=== PATIENT | male | born 1955 | race Hispanic/Latino ===

== ENCOUNTER 2017-10-26 07:32 | Day surgery (SDC) | payer BC ==
[2017-10-24 15:03] VITALS: BMI 33.7
[2017-10-26] MEDS ORDERED: Midazolam 2 MG/2 ML VIAL ONE (08:14)
[2017-10-26] MEDS ORDERED: Lidocaine 1% 5ml Abboject IV ONE (08:14)
[2017-10-26] MEDS ORDERED: Propofol 10 mg/ml Inj (20 ML) ONE (08:14)
[2017-10-26] MEDS ORDERED: MethylPREDNISolone Depo 40 mg/ml Inj ONE (08:17)
[2017-10-26] MEDS ORDERED: methylPREDNISolone Depo 80 mg/ml Inj ONE (08:17)
[2017-10-26] MEDS ORDERED: Bupivacaine 0.5% Inj(30mL) ONE (08:18)
[2017-10-26] MEDS ORDERED: Absorbable Gelatin Sponge Size 100 ONE (08:18)
[2017-10-26] MEDS ORDERED: Thrombin Topical 5,000 Int Units Spray Kit ONE (08:18)
[2017-10-26] MEDS ORDERED: Lidocaine 1% Inj (20ml) ONE (08:18)
[2017-10-26] MEDS ORDERED: Bacitracin Ointment 30 GM TUBE ONE (08:18)
[2017-10-26] MEDS ORDERED: Iohexol 300 100 ML IJ ONE (10:18)
[2017-10-26] MEDS ORDERED: Lactated Ringer's 1,000 ML IV ONE (11:20)
--- NOTE | 2017-10-26 11:24 | CP.SDSHP ---
Same Day Surgery H & P - History Proposed Procedure: Left knee aspiration/arthrogram s/p TKR Pre-Op Diagnosis: Left knee pain s/p TKR - Previous Medical/Surgical History Previous Surgical History: L TKR 2013 - Allergies Allergies: Allergies aspirin Allergy (Verified 10/24/17 15:03) RASH - Physical Exam Vital Signs: Vital Signs 10/26/17 10/26/17 10/26/17 08:11 08:15 08:17 Temperature 97.7 F Pulse Rate 81 81 Respiratory 18 Rate Blood Pressure 141/95 H 147/91 H O2 Sat by Pulse 95 Oximetry 10/26/17 08:30 Temperature Pulse Rate 76 Respiratory 18 Rate Blood Pressure 143/86 O2 Sat by Pulse Oximetry Mental Status: Alert & Oriented x3 Heart: WNL Lungs: WNL GI: WNL - {Optional Preform as Required} Ortho: Other (+DP/PT pulses calves soft NT neg homans +ROM ankle/toes/knee, skin intact, incision well healed) - Impression Impression: 62M s/p TKR 2013, had fall approx 1 year ago complaining of continued left knee pain especially with stairs for aspiration/arthrogram Pt. Evaluated Today:Candidate for Anesthesia & Procedure: Yes - Date & Time Date: 10/26/17 Time: 09:00 Short Stay Discharge - Short Stay Discharge Admitting Diagnosis/Reason for Visit: M25.562 Disposition: HOME/ ROUTINE Referrals: Tyree Hunter III, MD [Primary Care Provider] - Past Patient History - Past Medical History & Family History Past Medical History?: Yes - Past Social History Smoking Status: Former Smoker - CARDIAC Hx Cardiac Disorders: No - PULMONARY Hx Respiratory Disorders: No - NEUROLOGICAL Hx Neurological Disorder: No - HEENT Hx HEENT Problems: No - RENAL Hx Chronic Kidney Disease: No - ENDOCRINE/METABOLIC Hx Endocrine Disorders: Yes Hx Diabetes Mellitus Type 2: Yes - HEMATOLOGICAL/ONCOLOGICAL Hx Blood Disorders: No Hx Blood Transfusions: Yes Hx Blood Transfusion Reaction: No - INTEGUMENTARY Hx Dermatological Problems: No - MUSCULOSKELETAL/RHEUMATOLOGICAL Hx Musculoskeletal Disorders: Yes Hx Arthritis: Yes - GASTROINTESTINAL Hx Gastrointestinal Disorders: No - GENITOURINARY/GYNECOLOGICAL Hx Genitourinary Disorders: No - PSYCHIATRIC Hx Emotional Abuse: No Hx Physical Abuse: No - SURGICAL HISTORY Hx Surgeries: Yes Hx Herniorrhaphy: Yes (x3) Hx Orthopedic Surgery: Yes (total left knee-2013) Other/Comment: skin graft r forearm/r index finger - ANESTHESIA Hx Anesthesia: Yes Hx Anesthesia Reactions: No Hx Malignant Hyperthermia: No Has any member of the family had a problem w/ anesthesia?: No
[2017-10-26] MEDS ORDERED: Oxycodone/Acetaminophen 5/325 mg Tab PO PRN (11:26)
[2017-10-26] MEDS ORDERED: Lactated Ringer's 1,000 ML IV SCH (11:30)
[2017-10-26] MEDS ORDERED: HYDROmorphone 0.5 mg/0.5 ml ISec IVP PRN (11:30)
--- NOTE | 2017-10-26 11:33 | PCM.SURG1 ---
Surgeon's Initial Post Op Note - Surgeon's Notes Surgeon: Dale Clinical Systems Educator: ELDON Colon Type of Anesthesia: General LMA Anesthesia Administered By: DR Tinajero Pre-Operative Diagnosis: Painful L TKR- s/p Fall Operative Findings: lossened patella compoinent. ? anterior instability Post-Operative Diagnosis: as above. traumatic loosening patella component. =/ - anterior instability Operation Performed: aspiration arthrogram L knee. manipulation/evaluation L knee under anaesthesia. posiitoining of fluoro/interpretation of video images Specimen/Specimens Removed: synovial fluid/radiopaque dye aspirate Estimated Blood Loss: EBL {In ML}: 5 Blood Products Given: N/A Drains Used: No Drains Post-Op Condition: Good Date of Surgery/Procedure: 10/26/17 Time of Surgery/Procedure: 11:10 (time in room/anestheisa indcution time10:30)
[2017-10-26 11:35] LABS: FLUID TYPE SYNOVIAL FLUID
[2017-10-26 13:06] LABS: SF GROSS APPEARANCE BLOODY (CLEAR); SYNOVIAL FLUID COMMENT RED
[2017-10-26 13:11] VITALS: RESP 18
[2017-10-26 13:41] LABS: SYNOVIAL FLUID MONO/MACROPHAGE 15 % (0-0)
[2017-10-26 13:56] VITALS: BP 157/77; PULSE 91; TEMP 97.3; O2SAT 95
--- NOTE | 2017-10-26 14:19 | RAD ---
PROCEDURE: Left Knee Radiographs. HISTORY: Pain. COMPARISON: None. FINDINGS: BONES: No fracture. Status post total knee arthroplasty. Tibial stem cemented no prosthesis -cement interface lucency noted JOINTS: Prostatic alignment normal appearing JOINT EFFUSION: The hyperdensity in the suprapatellar joint space is compatible with a prior aspiration/arthrogram procedure as stated. Some hyperdensity in the infrapatellar fat pad also noted There is coalescent linear low-densities along the lateral opacified joint space- synovial hyperplastic folds can simulate this. Can be seen with synovitis. OTHER FINDINGS: None. IMPRESSION: Status post aspiration arthrogram procedure as so stated Findings as above.
--- NOTE | 2017-10-27 15:25 | RAD ---
PROCEDURE: Intraoperative Fluoroscopy. HISTORY: LEFT KNEE FINDINGS: Fluoroscopic assistance was provided Total fluoroscopic time (continuous mode) utilized during the procedure: 10.0 seconds. Please DLP: (mGy): 0.72. Five images obtained.
--- NOTE | 2017-10-28 18:48 | OP ---
PROCEDURE DATE: 10/26/2017 PREOPERATIVE DIAGNOSIS: Painful left total knee replacement. POSTOPERATIVE DIAGNOSES: 1. Rule out septic total knee replacement. 2. Probable loosened patellar component. 3. Questionable anterior instability. OPERATIVE FINDINGS: 1. Possible loosened patellar component. 2. Questionable anterior instability. 3. Rule out deep sepsis. SURGEON: Tyree Hunter MD RESISTOR INSPECTOR: Beatrice Newman, certified registered nursing lead assistant manager. TYPE OF ANESTHESIA: General laryngeal mask anesthesia. ANESTHESIA ADMINISTERED BY: Leon Tinajero MD COMPLICATIONS: None. DRAINS: None. OPERATION PERFORMED: 1. Aspiration arthrogram left knee. 2. Manipulation evaluation left knee under anesthesia. 3. Positioning of fluoroscope interpretation of video images. SPECIMENS REMOVED: Synovial fluid, radiopaque dye aspirate. ESTIMATED BLOOD LOSS: 5 mL. No blood products given. POSTOPERATIVE CONDITION: Stable TIME OF SURGERY: 11:10 a.m. ANESTHESIA INDUCTION TIME: 10:30. OPERATIVE INDICATIONS: German Hagen is a 62-year-old gentleman well known to my practice who presents now approximately 5 years after successful left total knee replacement arthroplasty. The patient noted increasing pain over the last several months after he had sustained a fall. The patient is admitted at this point for aspiration arthrogram and evaluation of the knee under anesthesia. Pros, cons, risks, and benefits of this particular procedure were discussed. The concept and possibility of secondary or later tertiary surgery was discussed. The patient can no longer withstand the discomfort and wished the procedure to be accomplished. Again, fully cognizant of the fact and possibly a secondary or tertiary surgery may be indicated. OPERATIVE PROCEDURE: After having obtained informed consent in the above fashion; after having identified side, site, and procedure, and critical pause/time-out; after the satisfactory induction of the anesthetic, the patient identified as German Hagen in the supine position with all bony prominences well padded. The left lower extremity was prepped and draped in usual fashion for lower extremity surgery. Under the surgeon's direction, the fluoroscope was positioned, video images were generated, and therapeutic decisions were made therefrom. AP and lateral image intensification views were accomplished. Manipulation of the knee under anesthesia was accomplished. There was found to be an anterior drawer, which was positive. This having been accomplished, approximately 30 mL of radiopaque contrast was introduced into the knee from a lateral suprapatellar portal and also from a lateral infrapatellar portal. The dye having been insufflated under the surgeon's direction, the fluoroscope was positioned, video images were generated, therapeutic decisions were made therefrom. This having been accomplished, the knee was again manipulated. There was found to be question of a lucency in the area of the patellar component and again the questionable anterior instability. Aliquots of fluid were sent for stat Gram stain, number of white cells per high-power field. The result came back as 0 to 2 white cells per high-power field. There was no evidence of jarred purulence. The aspirate again was sent for aerobic, anaerobic, AFB, and fungal cultures. There was no evidence of minimal amount of white cells per high-power field on the stat Gram stain. The fluid was aspirated, sent to the lab for the above studies including cell count. Compression dressing was applied. Verification of position was again offered on AP and lateral image intensification views. Tyree Hunter MD
== END 2017-10-26 13:45 | disposition home or self-care (01) ==
LOC: H.OPSURG 07:32
PROVIDERS: ATTEND Orthopaedic Surgery
DX: T84.033A Mechanical loosening of internal left knee prosthetic joint, initial encounter (principal); M19.90 Unspecified osteoarthritis, unspecified site; E11.9 Type 2 diabetes mellitus without complications; T84.84XA Pain due to internal orthopedic prosthetic devices, implants and grafts, initial encounter
CPT/HCPCS: 20610; 27570; 73560; 82948; 87015; 87070; 87075; 87101; 87116; 87181; 87206; 89051; 97116; 97161; G8978; G8979; G8980; J0690; J2250; J2704; J2765; J3010; J7030; J7120; Q9967

== ENCOUNTER 2017-11-21 05:52 | Inpatient (IN) | payer BC ==
[2017-10-24 15:03] VITALS: BMI 33.7
[2017-11-21] MEDS ORDERED: Absorbable Gelatin Sponge Size 100 ONE (07:21)
--- NOTE | 2017-11-21 07:56 | CP.PCM.HP ---
History of Present Illness - History of Present Illness History of Present Illness: Hospitalist Note- Dr. Arreola 62 y.o male with PMHx of DM, arthritis, and left TKR seen and evaluated at bedside for perioperative evaluation for left knee revision arthroplasty surgery. Patient reports he had a left knee TKR three years ago. In 2016, patient reports he started having pain to the left knee. Pain has gotten progressive worse. Denies trauma or falls. Went to Dr. Hunter's office to be seen and was scheduled for an aspiration of left knee in October 2017. Patient reports the aspiration of the L knee did not help much with the pain. Patient has exhausted all conservative treatment and now opts for surgical intervention. He reports nothing to eat or drink since 8:30 PM last night. Denies reaction to anesthesia. Patient denies nausea, vomiting, fever, shortness of breath, chills, diarrhea, or chest pains. Patient denies urinary problems. Denies problems with bowel movements. Last BM was this morning. PMHx: DM, arthritis PSH: left TKR, left knee aspiration, hernia repairs x 3 (2 inguinal hernias), varcoise veins keli, skin graft R index finger MEDS: Metformin, Januvia ALL: Aspirin- rash, swells FH: denies SH: former smoker (quit 5 years ago), denies drinking or illicit drug use, lives at home with stairs. Present on Admission - Present on Admission Any Indicators Present on Admission: No Past Patient History - Past Medical History & Family History Past Medical History?: Yes - Past Social History Smoking Status: Former Smoker - CARDIAC Hx Cardiac Disorders: No - PULMONARY Hx Respiratory Disorders: No - NEUROLOGICAL Hx Neurological Disorder: No - HEENT Hx HEENT Problems: No - RENAL Hx Chronic Kidney Disease: No - ENDOCRINE/METABOLIC Hx Endocrine Disorders: Yes Hx Diabetes Mellitus Type 2: Yes - HEMATOLOGICAL/ONCOLOGICAL Hx Blood Disorders: No Hx Blood Transfusions: Yes Hx Blood Transfusion Reaction: No - INTEGUMENTARY Hx Dermatological Problems: No - MUSCULOSKELETAL/RHEUMATOLOGICAL Hx Musculoskeletal Disorders: No Hx Arthritis: Yes - GASTROINTESTINAL Hx Gastrointestinal Disorders: No - GENITOURINARY/GYNECOLOGICAL Hx Genitourinary Disorders: No - PSYCHIATRIC Hx Emotional Abuse: No Hx Physical Abuse: No - SURGICAL HISTORY Hx Surgeries: Yes Hx Herniorrhaphy: Yes (inguinal hernia keli,x2 on right) Hx Joint Replacement: Yes (left knee) Hx Orthopedic Surgery: Yes (left knee replaced) Other/Comment: keli varicose veins,skin graft on right index finger - ANESTHESIA Hx Anesthesia: Yes Hx Anesthesia Reactions: No Hx Malignant Hyperthermia: No Has any member of the family had a problem w/ anesthesia?: No Meds Allergies/Adverse Reactions: Allergies Allergy/AdvReac Type Severity Reaction Status Date / Time aspirin Allergy RASH Verified 11/21/17 07:24 Physical Exam - Constitutional Appears: Well, Non-toxic, No Acute Distress - Head Exam Head Exam: ATRAUMATIC, NORMOCEPHALIC - Eye Exam Eye Exam: EOMI, Normal appearance, PERRL Pupil Exam: NORMAL ACCOMODATION - ENT Exam ENT Exam: Mucous Membranes Moist, Normal Exam - Neck Exam Neck exam: Positive for: Normal Inspection - Respiratory Exam Respiratory Exam: Clear to Auscultation Bilateral, NORMAL BREATHING PATTERN. absent: Rales, Rhonchi, Wheezes, Respiratory Distress, Stridor - Cardiovascular Exam Cardiovascular Exam: REGULAR RHYTHM, +S1, +S2 - GI/Abdominal Exam GI & Abdominal Exam: Normal Bowel Sounds, Soft - Extremities Exam Extremities exam: Negative for: calf tenderness Additional comments: Vasc: DP and PT 2/4 bilaterally, CFT < 3 seconds x10, Skin temperature WNL. No pitting edema noted to the LE Ortho: Decrease left knee ROM , pain with left knee ROM and palpation Neuro: protective and gross sensation intact Derm: Completely healed surgical incision to the left knee. Venous stasis changes to the LE b/l, most prominent to the anterior LE No open lesions, no clinical signs of infection noted - Back Exam Back exam: NORMAL INSPECTION. absent: CVA tenderness (L), CVA tenderness (R) - Neurological Exam Neurological exam: Alert, Oriented x3 - Psychiatric Exam Psychiatric exam: Normal Affect, Normal Mood - Skin Skin Exam: Dry, Intact, Normal Color, Warm Results - Vital Signs Recent Vital Signs: Last Vital Signs Temp 97.5 F L 11/21/17 07:07 Pulse 74 11/21/17 07:14 Resp 18 11/21/17 07:07 BP 123/87 11/21/17 07:07 Pulse Ox 96 11/21/17 07:07 - Labs Labs: Laboratory Results - last 24 hr 11/21/17 11/21/17 06:45 06:55 POC Glucose (mg/dL) 146 H BBK History Checked No verified bt Assessment & Plan - Assessment and Plan (Free Text) Assessment: 62 y.o male with PMHx of DM, arthritis, and left TKR seen and evaluated at bedside for left knee revision arthroplasty. Plan: Pt was seen and examined in SDS Pt NPO status was confirmed All Pre-op testing and EKG in the chart Pt has exhausted all conservative treatment at this time and is opting for surgical intervention Pt was explained procedure and post-operative course All pt's questions were answered to satisfaction No guarantees were made Pt understands all risks, benefits and complications of procedure Pt will follow-up with Dr. Hunter
[2017-11-21] MEDS ORDERED: Sodium Chloride 0.9% 1,000 ML IV SCH (08:15)
[2017-11-21 09:05] LABS: URINE BILIRUBIN NEGATIVE (NEGATIVE); URINE BLOOD NEGATIVE (NEGATIVE); URINE CLARITY CLEAR (Clear); URINE COLOR YELLOW (YELLOW); URINE GLUCOSE (UA) NEG (Normal); URINE LEUKOCYTE ESTERASE NEG Leu/uL (Negative); URINE NITRATE NEGATIVE (NEGATIVE); URINE PROTEIN NEGATIVE (NEGATIVE); URINE UROBILINOGEN 0.2-1.0 mg/dL (0.2-1.0)
[2017-11-21] MEDS ORDERED: Phenylephrine 10 mg/ml Inj ONE (12:07)
[2017-11-21] MEDS ORDERED: Bupivacaine 0.5% Inj(30mL) ONE (12:07)
[2017-11-21] MEDS ORDERED: Etomidate 20 mg/10ml Inj IV ONE (12:23)
[2017-11-21] MEDS ORDERED: Succinylcholine 200 mg/10 ml Inj IV ONE (12:23)
[2017-11-21] MEDS ORDERED: Rocuronium 10 mg/ml (5 ml) ONE ×3 (12:23→15:42)
[2017-11-21] MEDS ORDERED: Lactated Ringer's 1,000 ML IV ONE ×3 (12:50→16:32)
[2017-11-21] MEDS ORDERED: Gentamicin 80 mg/2mL Inj. ONE (13:00)
[2017-11-21] MEDS ORDERED: Propofol 10 mg/ml Inj (20 ML) ONE ×2 (13:07→14:16)
[2017-11-21] MEDS ORDERED: Dexamethasone 4 mg/1 ml ONE ×2 (13:36)
[2017-11-21 15:05] LABS: FLUID TYPE SYNOVIAL FLUID
[2017-11-21 15:17] LABS: SF GROSS APPEARANCE CLOUDY (CLEAR); SYNOVIAL FLUID COMMENT SL BLOODY; SYNOVIAL FLUID MONO/MACROPHAGE 12 % (0-0)
[2017-11-21 15:18] LABS: SF GROSS APPEARANCE CLOUDY (CLEAR); SYNOVIAL FLUID COMMENT SL BLOODY; SYNOVIAL FLUID MONO/MACROPHAGE 9 % (0-0)
[2017-11-21] MEDS ORDERED: Sevoflurane - Inhalation Anesthetic Liq (250 ml) ONE (15:25)
[2017-11-21] MEDS ORDERED: Bacitracin Ointment 30 GM TUBE ONE (16:16)
[2017-11-21] MEDS ORDERED: Bacitracin OINT 15GM TOP ONE (16:20)
--- NOTE | 2017-11-21 16:40 | PCM.SURG1 ---
Surgeon's Initial Post Op Note - Surgeon's Notes Surgeon: Dale Jute Bag Cutting Machine Operator: ELDON Gonzáles Type of Anesthesia: General Endo, Spinal Anesthesia Administered By: DR Farhan Singh Pre-Operative Diagnosis: Painful L TKR. \R/O sepsis Operative Findings: Poly wear (Tibia)/ Poly wear patella. flexion/extension laxity. no evidence for deep sepsis. sever synovitis anterior and posterior compartments Post-Operative Diagnosis: as above Operation Performed: Revision L TKR- tibiala nd patella component. anterior and posterior synovectomy. posterior capsule release. lateral patella release. excision skin/subcutaneous tissue and muscle Specimen/Specimens Removed: poly and patella components(tibial poly). synvoium. skin,subcutaneous tissue and muscle Estimated Blood Loss: EBL {In ML}: 50 Blood Products Given: N/A Drains Used: No Drains, Hemovac Post-Op Condition: Good Date of Surgery/Procedure: 11/21/17 Time of Surgery/Procedure: 13:50 (time in room/anaesthesia indcution time 1250)
[2017-11-21] MEDS ORDERED: Lactated Ringer's 1,000 ML IV SCH (16:45)
--- NOTE | 2017-11-21 16:50 | PCM.ANESB3 ---
Femoral Nerve Block - Femoral Nerve Block Date of Procedure: 11/21/17 Anesthesiologist: Nedra Pre-Procedure Diagnosis: Painful Left TKA Post-Procedure Diagnosis: Same Procedure Performed: Femoral Nerve Block Left - Procedure Femoral Nerve Block: The procedure was explained to the patient that it is for the post-operative pain management. Consent was obtained after a thorough discussion with the patient regarding the benefits and possible complications of local anesthetic block of the femoral nerve at the inguinal crease area. The patient was brought to the operating room and standard monitors were applied. Time-out was held with the circulating nurse to confirm the correct surgery and the appropriate block. UNder general anesthesia, patient was placed in supine position with fully extended lower extremities and the ___left groin exposed. The femoral artery was then carefully palpated. The ultrasound transducer was then applied to this area in the transverse plane and the femoral nerve was visualized lateral to the femoral artery and underneath the fascia iliaca. After thorough identification, the inguinal crease area was prepped with Chloraprep. At this point, a #22 gauge Stimuplex 4-inch needle was inserted immediately lateral to the femoral artery pulse at the inguinal crease and advanced perpendicularly. The needle was inserted to the ultrasound transducer in-plane towards the femoral nerve in a [id number] direction. Needle advancement was performed carefully under direct ultrasound visualization. Nerve stimulator was used and twitch of the quadriceps muscle was obtained at current of __0.4___ MA. After negative aspiration, __2___cc of __0.5___% ___bupivicaine with 1:200, 000 epinephrine was injected and this was followed with ___18__ _ cc of __0.5 % ___bupivicaine with 1:200,000 epinephrine . Under ultrasound guidance the local anesthetics were observed spreading below fascia iliaca and around the femoral nerve. The needle was removed intact. The patient had stable vital signs. The patient tolerated the femoral nerve block well with stable vital signs and was prepared for subsequent surgery.
--- NOTE | 2017-11-21 16:51 | PCM.ANESB2 ---
Popliteal Nerve Block - Popliteal Nerve Block Date of Procedure: 11/21/17 Anesthesiologist: Nedra Pre-Procedure Diagnosis: Pinful Left TKA Post-Procedure Diagnosis: Same Procedure Performed: Popliteal Nerve Block Left - Procedure Popliteal Nerve Block: This procedure was explained to the patient that it is for post-operative pain management. Consent was obtained after a thorough discussion with the patient regarding the benefits and possible complications of local anesthetic block of the sciatic nerve at the popliteal level. The patient was brought to the operating room and standard monitors are applied. Time-out was held with the circulating nurse to confirm the correct surgery and the appropriate block. Under general anesthesia, patient's operative leg was gently raised and supported and the groove in between the biceps femoris and vastus lateralis muscles was carefully palpated. The skin approximately 8cm above the popliteal crease was then marked. The ultrasound transducer was then applied to the posterior thigh approximately 8cm above the popliteal crease in the transverse plane and the sciatic nerve before its division was visualized lateral to the popliteal artery and in between the bicep femoris and semimembranosus/ semitendinosus muscles. After identification, the lateral portion of the thigh was prepped with Chloraprep. At this point, a # 21 gauge Stimuplex insulated 4 inch needle was inserted into pre-marked area and advanced in a perpendicular direction. The needle was inserted above the ultrasound transducer in-plane towards the sciatic nerve in a [id number] direction. Needle advancement was performed carefully under direct ultrasound visualization. Nerve stimulator was used and dorsiflexion of the __left___ foot was elicited at a current of __0.42___ MA. After repeated negative aspiration, __2___cc of __0.5___ % ___bupivicaine with 1:200,000 epinephrine was injected and this was flowed with ___18___ cc of _ 0.5 % ____bupivicaine with 1:200,000 epinephrine . Under ultrasound guidance the local anesthetics were observed surrounding sciatic nerve . The needle was removed intact. The patient tolerated the popliteal nerve block well with stable vital signs and was subsequently prepared for the surgery.
[2017-11-21] MEDS ORDERED: ceFAZolin IV 2 gm in Dextrose 2 GM/50 ML BAG IVPB SCH (17:00)
--- NOTE | 2017-11-21 18:28 | RAD ---
PROCEDURE: Left Knee Radiographs. HISTORY: Pain. COMPARISON: Left knee radiographs 10/26/2017. FINDINGS: BONES: Prostatic components from a left total knee replacement are identified with postoperative changes appreciated on acute/ subacute basis in the anterior knee soft tissues including a drain, with potential replacement of prostatic components versus other procedure at this time. No interval fracture, subluxation or dislocation. No lucency is seen related to the cortical/ prosthetic interfaces. JOINT EFFUSION: Postoperative changes noted including anterior skin love. OTHER FINDINGS: None. IMPRESSION: Postop changes are identified as discussed above with total knee replacement hardware identified at the distal femur proximal tibia. No interval fracture dislocation identified. Please see discussion above.
[2017-11-21] MEDS ORDERED: Artificial Tears Opht Soln OU PRN (20:18)
--- NOTE | 2017-11-21 21:33 | CARD ---
APPROVED REPORT EKG Measurement Heart [id number] OR [id number] <Conclusion> Normal sinus rhythm Normal ECG
[2017-11-22] MEDS: ceFAZolin 2 GM in Sodium Chloride 0.9% 100 ML IVPB SCH ×2 (00:20→08:29)
[2017-11-22 06:48] LABS: BASO % 0.1 % (0.0-2.0); HEMOGLOBIN 12.6 g/dL (12.0-18.0); LYMPH # 1.1 K/uL (1.0-4.3); LYMPH % 9.2 % (20.0-40.0); MEAN CELL VOLUME 87.3 fl (80.0-94.0); MEAN CORPUSCULAR HEMOGLOBIN 28.5 pg (27.0-31.0); MEAN CORPUSCULAR HGB CONC 32.7 g/dL (33.0-37.0); MEAN PLATELET VOLUME 8.1 fl (7.2-11.7); MONO # 0.5 K/uL (0.0-0.8); MONO % 3.9 % (0.0-10.0); NEUT # 10.2 K/uL (1.8-7.0); NEUT % 86.8 % (50.0-75.0); NRBC % 0.1 % (0.0-0.0); PLATELET COUNT 187 K/uL (130-400); RBC 4.43 Mil/uL (4.40-5.90); RED CELL DISTRIBUTION WIDTH 14.7 % (11.5-14.5); WHITE BLOOD COUNT 11.8 K/uL (4.8-10.8)
[2017-11-22 06:57] LABS: BLOOD UREA NITROGEN 15 mg/dl (9-20); CALCIUM 8.8 mg/dL (8.4-10.2); GFR AFRICAN-AMERICAN > 60; GFR NON-AFRICAN AMERICAN > 60
[2017-11-22 07:46] LABS: INR 1.2 (0.9-1.2); PROTHROMBIN TIME 13.3 Seconds (9.8-13.1)
[2017-11-22 07:47] LABS: PARTIAL THROMBOPLASTIN TIME 27.3 Seconds (25.6-37.1)
--- NOTE | 2017-11-22 08:17 | CP.PCM.PN ---
Subjective - Date & Time of Evaluation Date of Evaluation: 11/22/17 Time of Evaluation: 07:45 - Subjective Subjective: Patient was seen and examined at bedside comfortable. No complaints of pain. Tolerating diet well. Postive void. Negative BM. No acute events overnight. Objective - Vital Signs/Intake and Output Vital Signs (last 24 hours): Temp Pulse Resp BP Pulse Ox 97.6 F 96 H 19 92/60 L 94 L 11/22/17 04:00 11/22/17 04:00 11/22/17 04:00 11/22/17 04:00 11/22/17 04:00 - Medications Medications: Current Medications Acetaminophen (Tylenol 325mg Tab) 650 mg PO Q6 PRN PRN Reason: Fever >100.4 F Artificial Tears (Artificial Tears) 2 drop OU Q4 PRN PRN Reason: Dry eyes Enoxaparin Sodium (Lovenox) 40 mg SC DAILY OSVALDO PRN Reason: Protocol Sodium Chloride (Sodium Chloride 0.9%) 1,000 mls @ 100 mls/hr IV .Q10H OSVALDO Lactated Ringer's (Lactated Ringer's) 1,000 mls @ 100 mls/hr IV .Q10H OSVALDO Acetaminophen (Ofirmev) 100 mls @ 400 mls/hr IVPB Q6H OSVALDO PRN Reason: Protocol Stop: 11/22/17 23:01 Last Admin: 11/22/17 05:21 Dose: Not Given Cefazolin Sodium 2 gm/ Sodium (Chloride) 100 mls @ 100 mls/hr IVPB Q8 OSVALDO PRN Reason: Protocol Stop: 11/22/17 09:59 Last Admin: 11/22/17 00:20 Dose: 100 mls/hr Ondansetron HCl (Zofran Inj) 4 mg IVP Q6 PRN PRN Reason: Nausea/Vomiting Pantoprazole Sodium (Protonix Ec Tab) 40 mg PO DAILY OSVALDO - Labs Labs: 11/22/17 05:20 11/22/17 05:20 PT 13.3 Seconds (9.8-13.1) H 11/22/17 05:20 INR 1.2 (0.9-1.2) 11/22/17 05:20 APTT 27.3 Seconds (25.6-37.1) 11/22/17 05:20 - Constitutional Appears: No Acute Distress - Extremities Exam Additional comments: Left knee: In knee immobilizer. Dressings clean dry and intact. Hemovac drain with minimal sanguinous drainage. Mild tenderness to palpation. Sensation intact SP/DP/TN. Motor intact EHL/FHL. Pedal pulses intact. Calves soft and NT b/l. - Neurological Exam Neurological Exam: Alert, Awake, Oriented x3 - Psychiatric Exam Psychiatric exam: Normal Affect, Normal Mood Assessment and Plan (1) Painful total knee replacement, left Assessment & Plan: Patient is POD#1 from revision L TKA and extensive synovectomy -pain control -PT/OT: WBAT, CPM as ordered, may remove knee imm as needed -Drain output 75cc's, will monitor and possibly remove tomorrow AM -f/u surgical cultures (no growth to date) -Above discussed with Dr. Hunter Status: Acute (2) Synovitis of knee Status: Acute
[2017-11-22] MEDS: Pantoprazole 40 mg EC Tab PO SCH (08:29)
[2017-11-22] MEDS: Enoxaparin 40 mg Syringe SC SCH (08:29)
--- NOTE | 2017-11-22 08:57 | CP.PCM.PN ---
<Singh Martin - Last Filed: 11/22/17 15:23> Subjective - Date & Time of Evaluation Date of Evaluation: 11/22/17 Time of Evaluation: 09:00 - Subjective Subjective: Hospitalist Progress Note- Dr. Pichardo 62 y.o male seen 1 day s/p revision L TKR. Patient is seen resting comfortably in bed, in NAD, and AAOx3. Patient denies acute events overnight. Denies n/v/sob /cp/chills/f/or d. Patient report no urinary problems. Patient reports no BM since surgery. No new complains. Objective - Vital Signs/Intake and Output Vital Signs (last 24 hours): Temp Pulse Resp BP Pulse Ox 97.8 F 104 H 20 119/70 91 L 11/22/17 08:42 11/22/17 08:42 11/22/17 08:42 11/22/17 08:42 11/22/17 08:42 - Medications Medications: Current Medications Acetaminophen (Tylenol 325mg Tab) 650 mg PO Q6 PRN PRN Reason: Fever >100.4 F Artificial Tears (Artificial Tears) 2 drop OU Q4 PRN PRN Reason: Dry eyes Enoxaparin Sodium (Lovenox) 40 mg SC DAILY [facility] PRN Reason: Protocol Last Admin: 11/22/17 08:29 Dose: 40 mg Sodium Chloride (Sodium Chloride 0.9%) 1,000 mls @ 100 mls/hr IV .Q10H [facility] Lactated Ringer's (Lactated Ringer's) 1,000 mls @ 100 mls/hr IV .Q10H [facility] Acetaminophen (Ofirmev) 100 mls @ 400 mls/hr IVPB Q6H [facility] PRN Reason: Protocol Stop: 11/22/17 23:01 Last Admin: 11/22/17 05:21 Dose: Not Given Cefazolin Sodium 2 gm/ Sodium (Chloride) 100 mls @ 100 mls/hr IVPB Q8 [facility] PRN Reason: Protocol Stop: 11/22/17 09:59 Last Admin: 11/22/17 08:29 Dose: 100 mls/hr Metformin HCl (Glucophage) 1,000 mg PO BID [facility] Multivitamins/Minerals (Therapeutic-M Tab) 1 tab PO DAILY [facility] Ondansetron HCl (Zofran Inj) 4 mg IVP Q6 PRN PRN Reason: Nausea/Vomiting Pantoprazole Sodium (Protonix Ec Tab) 40 mg PO DAILY [facility] Last Admin: 11/22/17 08:29 Dose: 40 mg Sitagliptin Phosphate (Januvia) 100 mg PO DAILY [facility] - Labs Labs: 11/22/17 05:20 11/22/17 05:20 PT 13.3 Seconds (9.8-13.1) H 11/22/17 05:20 INR 1.2 (0.9-1.2) 11/22/17 05:20 APTT 27.3 Seconds (25.6-37.1) 11/22/17 05:20 - Constitutional Appears: Well, Non-toxic, No Acute Distress - Head Exam Head Exam: ATRAUMATIC, NORMOCEPHALIC - Eye Exam Eye Exam: EOMI, Normal appearance, PERRL Pupil Exam: NORMAL ACCOMODATION, PERRL - ENT Exam ENT Exam: Mucous Membranes Moist, Normal Exam - Neck Exam Neck Exam: Full ROM, Normal Inspection - Respiratory Exam Respiratory Exam: Clear to Ausculation Bilateral, NORMAL BREATHING PATTERN. absent: Rales, Rhonchi, Wheezes, Respiratory Distress, Stridor - Cardiovascular Exam Cardiovascular Exam: REGULAR RHYTHM, +S1, +S2 - GI/Abdominal Exam GI & Abdominal Exam: Soft, Normal Bowel Sounds - Extremities Exam Extremities Exam: Normal Capillary Refill. absent: Calf Tenderness Additional comments: No calf tenderness or pain with palpation/calf squeeze b/l Immobilizer device is c/d/i Hemovac intact with sangious drainage noted to canister Temperature gradient WNL, CFT < 3 seconds to digits, patient unable to wiggle toes secondary to anesthesia block, sensation intact - Neurological Exam Neurological Exam: Alert, Awake, Oriented x3 - Psychiatric Exam Psychiatric exam: Normal Affect, Normal Mood - Skin Skin Exam: Dry, Intact, Normal Color, Warm Assessment and Plan - Assessment and Plan (Free Text) Assessment: 62 y.o male seen 1 day s/p revision L TKR- tibial and patella component, anterior and posterior synovectomy, posterior capsule release, lateral patella release, excision skin/subcutaneous tissue and muscle Plan: 1. Painful left TKR -s/p revisional left TKR -c/w current pain management 2. s/p revisional left TKR -1 day s/p revision L TKR- tibial and patella component, anterior and posterior synovectomy, posterior capsule release, lateral patella release, excision skin/ subcutaneous tissue and muscle -PT/OT -f/u culture -Zofran prn 3. Leukocytosis -likely reactive -will monitor 3. DM -c/w Metformin, Januvia 4. DVT prophylaxis -Lovenox 5. GI ulcer prophylaxis -Pantroprazole <MarinoAngelicjamila Carpenter - Last Filed: 11/22/17 15:38> Objective - Vital Signs/Intake and Output Vital Signs (last 24 hours): Temp Pulse Resp BP Pulse Ox 97.8 F 99 H 20 120/57 L 95 11/22/17 08:42 11/22/17 13:44 11/22/17 08:42 11/22/17 13:44 11/22/17 13:44 - Medications Medications: Current Medications Acetaminophen (Tylenol 325mg Tab) 650 mg PO Q6 PRN PRN Reason: Fever >100.4 F Artificial Tears (Artificial Tears) 2 drop OU Q4 PRN PRN Reason: Dry eyes Enoxaparin Sodium (Lovenox) 40 mg SC DAILY [facility] PRN Reason: Protocol Last Admin: 11/22/17 08:29 Dose: 40 mg Sodium Chloride (Sodium Chloride 0.9%) 1,000 mls @ 100 mls/hr IV .Q10H [facility] Lactated Ringer's (Lactated Ringer's) 1,000 mls @ 100 mls/hr IV .Q10H [facility] Acetaminophen (Ofirmev) 100 mls @ 400 mls/hr IVPB Q6H [facility] PRN Reason: Protocol Stop: 11/22/17 23:01 Last Admin: 11/22/17 11:00 Dose: Not Given Metformin HCl (Glucophage) 1,000 mg PO BID [facility] Last Admin: 11/22/17 11:13 Dose: 1,000 mg Multivitamins/Minerals (Therapeutic-M Tab) 1 tab PO DAILY [facility] Ondansetron HCl (Zofran Inj) 4 mg IVP Q6 PRN PRN Reason: Nausea/Vomiting Pantoprazole Sodium (Protonix Ec Tab) 40 mg PO DAILY [facility] Last Admin: 11/22/17 08:29 Dose: 40 mg Sitagliptin Phosphate (Januvia) 100 mg PO DAILY [facility] Last Admin: 11/22/17 11:13 Dose: 100 mg - Labs Labs: 11/22/17 05:20 11/22/17 05:20 PT 13.3 Seconds (9.8-13.1) H 11/22/17 05:20 INR 1.2 (0.9-1.2) 11/22/17 05:20 APTT 27.3 Seconds (25.6-37.1) 11/22/17 05:20 Attending/Attestation - Attestation I have personally seen and examined this patient.: Yes I have fully participated in the care of the patient.: Yes I have reviewed all pertinent clinical information, including history, physical exam and plan: Yes Notes (Text): Painful Left TKR s/p Revision TKR - Pain controlled, pt doing well post op - cont PT/OT -Plan for d/c to [facility] in am
[2017-11-22] MEDS: Multivitamin With Minerals Tab PO SCH (09:39)
--- NOTE | 2017-11-22 11:17 | CP.PCM.CON ---
History of Present Illness - History of Present Illness History of Present Illness: THE PATIENT IS A 62 YEAR OLD MALE WHO HAD A LEFT TKR 3 YEARS AGO AND STARTED HAVING PAIN AGAIN FOR A FEW MONTHS. HE HAD AN ASPIRATION LAST MONTH BUT STILL CONTINUED TO HAVE PAIN SO HE UNDERWENT A LEFT KNEE REVISION YESTERDAY. HE ALSO HAS A HISTORY OF TYPE 2 DM AND HE IS AN EX-SMOKER. CARDIOLOGY WAS ASKED TO FOLLOW HIM POST-OPERATIVELY. HE DENIES ANY KNOWN CARDIAC PROBLEMS AND DENIES ANGINA, PR OR CHF IN THE PAST. TODAY HIS ONLY COMPLAINTS ARE ABOUT HIS LEFT KNEE PAIN FROM SURGERY. Past Patient History - Past Medical History & Family History Past Medical History?: Yes - Past Social History Smoking Status: Former Smoker - CARDIAC Hx Cardiac Disorders: No - PULMONARY Hx Respiratory Disorders: No - NEUROLOGICAL Hx Neurological Disorder: No - HEENT Hx HEENT Problems: No - RENAL Hx Chronic Kidney Disease: No - ENDOCRINE/METABOLIC Hx Endocrine Disorders: Yes Hx Diabetes Mellitus Type 2: Yes - HEMATOLOGICAL/ONCOLOGICAL Hx Blood Disorders: No Hx Blood Transfusions: Yes Hx Blood Transfusion Reaction: No - INTEGUMENTARY Hx Dermatological Problems: No - MUSCULOSKELETAL/RHEUMATOLOGICAL Hx Musculoskeletal Disorders: No Hx Arthritis: Yes - GASTROINTESTINAL Hx Gastrointestinal Disorders: No - GENITOURINARY/GYNECOLOGICAL Hx Genitourinary Disorders: No - PSYCHIATRIC Hx Emotional Abuse: No Hx Physical Abuse: No - SURGICAL HISTORY Hx Surgeries: Yes Hx Herniorrhaphy: Yes (inguinal hernia keli,x2 on right) Hx Joint Replacement: Yes (left knee) Hx Orthopedic Surgery: Yes (left knee replaced) Other/Comment: keli varicose veins,skin graft on right index finger - ANESTHESIA Hx Anesthesia: Yes Hx Anesthesia Reactions: No Hx Malignant Hyperthermia: No Has any member of the family had a problem w/ anesthesia?: No Meds Allergies/Adverse Reactions: Allergies Allergy/AdvReac Type Severity Reaction Status Date / Time aspirin Allergy RASH Verified 11/21/17 07:24 - Medications Medications: Current Medications Acetaminophen (Tylenol 325mg Tab) 650 mg PO Q6 PRN PRN Reason: Fever >100.4 F Artificial Tears (Artificial Tears) 2 drop OU Q4 PRN PRN Reason: Dry eyes Enoxaparin Sodium (Lovenox) 40 mg SC DAILY [facility] PRN Reason: Protocol Last Admin: 11/22/17 08:29 Dose: 40 mg Sodium Chloride (Sodium Chloride 0.9%) 1,000 mls @ 100 mls/hr IV .Q10H [facility] Lactated Ringer's (Lactated Ringer's) 1,000 mls @ 100 mls/hr IV .Q10H [facility] Acetaminophen (Ofirmev) 100 mls @ 400 mls/hr IVPB Q6H [facility] PRN Reason: Protocol Stop: 11/22/17 23:01 Last Admin: 11/22/17 05:21 Dose: Not Given Metformin HCl (Glucophage) 1,000 mg PO BID [facility] Multivitamins/Minerals (Therapeutic-M Tab) 1 tab PO DAILY [facility] Ondansetron HCl (Zofran Inj) 4 mg IVP Q6 PRN PRN Reason: Nausea/Vomiting Pantoprazole Sodium (Protonix Ec Tab) 40 mg PO DAILY [facility] Last Admin: 11/22/17 08:29 Dose: 40 mg Sitagliptin Phosphate (Januvia) 100 mg PO DAILY [facility] Physical Exam - Respiratory Exam Respiratory Exam: Clear to Auscultation Bilateral - Cardiovascular Exam Cardiovascular Exam: REGULAR RHYTHM, +S1, +S2 Results - Vital Signs Recent Vital Signs: Last Vital Signs Temp 97.8 F 11/22/17 08:42 Pulse 109 H 11/22/17 09:50 Resp 20 11/22/17 08:42 BP 108/64 11/22/17 09:50 Pulse Ox 94 L 11/22/17 09:50 - Labs Result Diagrams: 11/22/17 05:20 11/22/17 05:20 Labs: Laboratory Results - last 24 hr 11/21/17 11/21/17 11/21/17 13:30 13:30 16:50 WBC RBC Hgb Hct MCV MCH MCHC RDW Plt Count MPV Neut % (Auto) Lymph % (Auto) [place] % (Auto) Eos % (Auto) Baso % (Auto) Neut # (Auto) Lymph # (Auto) [place] # (Auto) Eos # (Auto) Baso # (Auto) PT INR APTT Sodium Potassium Chloride Carbon Dioxide Anion Gap BUN Creatinine Est GFR ( Amer) Est GFR (Non-Af Amer) POC Glucose (mg/dL) 179 H Random Glucose Calcium Fluid Type Synovial fluid Synovial fluid Synovial WBC 495.0 H 281.0 H Synovial RBC 2280.0 H 1733.0 H Synovial Neutrophils 4.0 H 3.0 H Synovial Lymphocytes 84.0 H 88.0 H Synov Monos/Macrophage 12 H 9 H Synovial Fluid Comment Sl bloody Sl bloody 11/22/17 11/22/17 11/22/17 05:20 05:20 05:20 WBC 11.8 H D RBC 4.43 Hgb 12.6 Hct 38.7 MCV 87.3 MCH 28.5 MCHC 32.7 L RDW 14.7 H Plt Count 187 MPV 8.1 Neut % (Auto) 86.8 H Lymph % (Auto) 9.2 L [place] % (Auto) 3.9 Eos % (Auto) 0.0 Baso % (Auto) 0.1 Neut # (Auto) 10.2 H Lymph # (Auto) 1.1 [place] # (Auto) 0.5 Eos # (Auto) 0.0 Baso # (Auto) 0.0 PT 13.3 H INR 1.2 APTT 27.3 Sodium 140 Potassium 4.3 Chloride 102 Carbon Dioxide 25 Anion Gap 17 BUN 15 Creatinine 1.0 Est GFR ( Amer) > 60 Est GFR (Non-Af Amer) > 60 POC Glucose (mg/dL) Random Glucose 163 H Calcium 8.8 Fluid Type Synovial WBC Synovial RBC Synovial Neutrophils Synovial Lymphocytes Synov Monos/Macrophage Synovial Fluid Comment 11/22/17 11/22/17 05:38 10:55 WBC RBC Hgb Hct MCV MCH MCHC RDW Plt Count MPV Neut % (Auto) Lymph % (Auto) [place] % (Auto) Eos % (Auto) Baso % (Auto) Neut # (Auto) Lymph # (Auto) [place] # (Auto) Eos # (Auto) Baso # (Auto) PT INR APTT Sodium Potassium Chloride Carbon Dioxide Anion Gap BUN Creatinine Est GFR ( Amer) Est GFR (Non-Af Amer) POC Glucose (mg/dL) 171 H 221 H Random Glucose Calcium Fluid Type Synovial WBC Synovial RBC Synovial Neutrophils Synovial Lymphocytes Synov Monos/Macrophage Synovial Fluid Comment Assessment & Plan - Assessment and Plan (Free Text) Assessment: S/P LEFT TKR REVISION TYPE 2 DIABETES MELLITUS Plan: CONTINUE METFORMEN, JANUVIA AND LOVENOX FOR REHAB
[2017-11-22 11:49] LABS: BANDS 1 % (0-2); LYMPHOCYTE 7 % (20-50); MONOCYTE 3 % (0-10); NEUTROPHIL 86 % (42-75); PLATELET ESTIMATE NORMAL (NORMAL); REACTIVE LYMPHOCYTES 3 % (0-0); TOTAL CELLS COUNTED 100
[2017-11-23 06:31] LABS: ALB/GLOB RATIO 1.2 (1.0-2.1); ALBUMIN 3.6 g/dL (3.5-5.0); ALT/SGPT 52 U/L (21-72); AST/SGOT 29 U/L (17-59); BLOOD UREA NITROGEN 19 mg/dl (9-20); CALCIUM 8.6 mg/dL (8.4-10.2); GFR AFRICAN-AMERICAN > 60; GFR NON-AFRICAN AMERICAN > 60
--- NOTE | 2017-11-23 07:45 | OP ---
PROCEDURE DATE: 11/21/2017 LOCATION: [facility]. PREOPERATIVE DIAGNOSIS: Painful left total knee replacement. POSTOPERATIVE DIAGNOSES: 1. Polyethylene wear of patella and tibia and causing flexion and extension instability and recurrent synovitis. 2. Minor instability in flexion and extension. 3. Severe tricompartmental synovitis. 4. 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 5. Lateral patellar contracture. 6. Posterior capsular contracture. OPERATIVE FINDINGS: 1. Minor instability in flexion and extension. 2. Severe tricompartmental synovitis. 3. 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 4. Lateral patellar contracture. 5. Posterior capsular contracture. PROCEDURE: 1. Revision of left total knee replacement arthroplasty, tibial polyethylene component and patellar component. 2. Arthrotomy, anterior and posterior synovectomy. 3. Posterior capsular release. 4. Lateral patellar retinacular release. 5. Excision of skin and subcutaneous tissue, and muscle. SURGEON: Tyree Hunter MD COTTON TIER: Beatrice Newman, certified nursing certified surgical tech/first assistant. SECOND COMMUNITY SERVICE AIDE: German Jimenez PA-C. It should be noted that the operative goal could not have been reached and the procedure is execution dependent on the safety admin assistant ship of Beatrice Newman, certified registered nursing certified surgical tech/first assistant and second safety admin assistant, German Jimenez PA-C. OPERATIVE PROCEDURE: After having obtained informed consent in the above fashion, after thoroughly discussing the pros, cons, risks, and benefits of revision surgery and the possibility of component removal and insertion of antibiotic impregnated spacer, possibility of complete revision, possibility of polyethylene exchange had been discussed preoperatively, possibility of secondary or even tertiary surgery was discussed, possibility of stiffness, instability, recurrent effusion, persistent pain is discussed. It should be noted that the patient had undergone arthrography of the left knee, which was treat conservatively, did not improve, and the patient in fact demands revision, exploration, and possible revision in the above fashion, pros, cons, risks, and benefits were discussed at length with the patient. After having obtained informed consent, after having identified side, site and procedure and a critical pause/time-out, after satisfactory induction of the anesthetic, the patient identified as German Hagen in the supine position with all bony prominences well padded, the left lower extremity was prepped and free draped in the usual fashion for extremity surgery. The tourniquet had been applied, but was not yet inflated. After having obtained informed consent, after the satisfactory induction of the general and regional anesthesia by Dr. Sneed. The left lower extremity was exsanguinated using a 6-inch Esmarch bandage, tourniquet, which had been applied was inflated to 350 mmHg. The initial incision is extended two fingerbreadths distally and two fingerbreadths proximally. The incision was carried down through the skin and subcutaneous tissue and muscle and ellipse of skin is excised. The skin incision was carried down through the subcutaneous tissue and muscle. The extensor expansion was identified and medial arthrotomy was accomplished. The dissection is carried around posteromedially to the direct head of the semimembranosus tendon. A portion of the patellar ligament is elevated. There is evidence of a lateral patellar retinacular contracture. The retinaculum was released. The patella was everted and the knee is flexed. There was found to be marked damage to the patella. At this point in time, there was found to be raging synovitis at all three compartments and in the lateral gutter. Great care was taken via medial arthrotomy having been accomplished. Dissection was carried around posteromedially to the direct head of the semimembranosus tendon, it was left intact. The anterior and posterior synovectomy is accomplished. There was found to be a great deal of inflammatory synovitis. There was found to be a marked effusion. Two aliquots of fluid were sent for stat Gram stain, number of white cells per high-power field and bacteria, aerobic, anaerobic, AFB and fungal cultures. This having been accomplished, the fluid comes back 3 to 5 white cells per high-power field, no evidence of bacteria, and clinically, there was no evidence of sepsis. After performing an extensor synovectomy, polyethylene is removed from the tibia. The tibia is dislocated anteriorly found to be contracted, there was found to be evidence of laxity though in the both extension and flexion with the 13 mm polyethylene, which had been implanted. This having been accomplished, a 13 mm polyethylene is removed. At this point in time, the interface between the femur and tibia are reviewed. There was found to be no evidence of compromised interface even on gently tapping the component, there is no egress of fluid or plug from the component speaking for loosening so. There is no evidence of clinical loosening on aspiration arthrogram as well. There is evidence of loosening with an interface of loosening between the patellar and the bone. This having been accomplished, attention was then turned to the trialing. Trying of the tibial polyethylene is accomplished with the #15 insert was found to be acceptable. Slightly extensor posterior capsular release have been accomplished. The patient had had a moderate contracture. The patient is brought out for full extension at surgery. This having been accomplished, the 15 mm polyethylene was impacted. Flexion and extension were found to be excellent. Anterior drawer was found to be negative. There was found to be no evidence of anterior or posterior instability. This having been accomplished, the wound was thoroughly irrigated with no evidence of anterior or posterior instability. Synovectomy having been accomplished, the wound is thoroughly irrigated. Partial synovectomy having been completed, attention was turned to the patella. The interface between the patella and the cement is developed using an oscillating saw. The free hand patellar cut is accomplished. The high-speed genaro was used to removed the polyethylene pegs. Further furnishing of the patella is accomplished using deep genaro to increase the cement interface. Trying is accomplished with #41 patella. The fit is found to be excellent. The lateral patellar retinacular release having been completed. Hemostasis is controlled with the Aquamantys. The patellar balance and . The wound was thoroughly irrigated. The 41 mm patella was cemented. Tourniquet is deflated. Hemostasis is controlled. Closure was in layers #2 FiberWire with #1 Vicryl to the arthrotomy followed by 0 and 2-0 Vicryl followed by love for skin over an 8-inch suction Hemovac drain. [place] compression dressing and knee immobilizers were applied. Tyree Hunter MD
[2017-11-23 07:53] VITALS: BP 133/76; RESP 20; O2SAT 90
--- NOTE | 2017-11-23 08:31 | CON ---
INFECTIOUS DISEASE CONSULT DATE: LOCATION: He is in room 650, bed 2. HISTORY OF PRESENT ILLNESS: The patient is a 62-year-old male who underwent a revision of the left total knee replacement, bilateral patellar component, anterior and posterior synovectomy, posterior capsule release, lateral patellar release, and excision of skin subcutaneous tissue. The patient had multiple cultures taken. He had a procedure done for painful left total knee replacement. The patient initially had been seen and the replacement done 3-1/2 years ago. In August, he began to feel uncomfortable and had pain in the knee and went to Dr. Hunter. Subsequently, he had aspiration done on the knee and was treated with some oral antibiotics. When it did not become any better, Dr. Hunter decided to send the patient in for a total knee revision. PHYSICAL EXAMINATION: GENERAL: The patient is alert, cooperative, and oriented to time and place. HEENT: Within normal limits. NECK: Supple. LUNGS: Clear. HEART: Regular sinus rhythm. ABDOMEN: Soft. Positive bowel sounds. EXTREMITIES: Has dressing on left knee with a Hemovac attached at the present time. The right leg is within normal limits. LABORATORY DATA: Include white count of 11.8, hemoglobin 12.6, and he has got a left shift. Chemistry; creatinine 1.0, GFR is greater than 60, sodium 140, chloride 4.3, and BUN is 17. The patient also has a history of diabetes mellitus. He is a former smoker and has no history of kidney disease. At the present time, I feel that we should treat him as per our discussion with at least four weeks of IV antibiotics. I have started him on vancomycin 1 g IV piggyback q.12 hours and ertapenem to cover the possibility of Gram-negative infection that would be given 1 g q.24 hours. We will await for cultures and make decision as to whether to continue with the present antibiotic therapy. Cameron Mondragon MD
--- NOTE | 2017-11-23 09:03 | CP.PCM.DIS ---
<Singh Martin - Last Filed: 11/23/17 12:26> Provider - Provider Date of Admission: 11/21/17 08:10 Attending physician: García Arreola MD Primary care physician: Tyree Hunter III, MD Time Spent in preparation of Discharge (in minutes): 20 Diagnosis - Discharge Diagnosis (1) Painful total knee replacement, left Status: Acute Comment: s/p revisional left TKR (2) Status post revision of total replacement of left knee Status: Acute (3) Leukocytosis Status: Acute Comment: likely reactive (4) Diabetes Status: Chronic Hospital Course - Lab Results Lab Results: Micro Results 11/21/17 13:30 Other: Please Indicate Mycobacterial Culture - Preliminary 11/21/17 13:00 Other: Please Indicate Mycobacterial Culture - Preliminary 11/21/17 13:30 Knee - Left Gram Stain - Final 11/21/17 13:30 Knee - Left Wound Culture - Preliminary NO GROWTH AFTER 24 HOURS 11/21/17 13:30 Knee - Left Gram Stain - Final 11/21/17 13:30 Knee - Left Wound Culture - Preliminary NO GROWTH AFTER 24 HOURS 11/21/17 13:30 Knee - Left Gram Stain - Final 11/21/17 13:30 Knee - Left Wound Culture - Preliminary NO GROWTH AFTER 24 HOURS 11/21/17 13:30 Knee - Left Gram Stain - Final 11/21/17 13:30 Knee - Left Wound Culture - Preliminary NO GROWTH AFTER 24 HOURS 11/21/17 13:30 Knee - Left Gram Stain - Final 11/21/17 13:30 Knee - Left Wound Culture - Preliminary NO GROWTH AFTER 24 HOURS 11/21/17 13:30 Knee - Left Gram Stain - Final 11/21/17 13:30 Knee - Left Wound Culture - Preliminary NO GROWTH AFTER 24 HOURS 11/21/17 13:30 Knee - Left Gram Stain - Final 11/21/17 13:30 Knee - Left Wound Culture - Preliminary NO GROWTH AFTER 24 HOURS 11/21/17 13:30 Knee - Left Gram Stain - Final 11/21/17 13:30 Knee - Left Wound Culture - Preliminary NO GROWTH AFTER 24 HOURS 11/21/17 13:30 Knee - Left Gram Stain - Final 11/21/17 13:30 Knee - Left Wound Culture - Preliminary NO GROWTH AFTER 24 HOURS 11/21/17 13:30 Knee - Left Gram Stain - Final 11/21/17 13:30 Knee - Left Wound Culture - Preliminary NO GROWTH AFTER 24 HOURS 11/21/17 13:30 Knee - Left Gram Stain - Final 11/21/17 13:30 Knee - Left Wound Culture - Preliminary NO GROWTH AFTER 24 HOURS 11/21/17 13:30 Knee - Left Gram Stain - Final 11/21/17 13:30 Knee - Left Wound Culture - Preliminary NO GROWTH AFTER 24 HOURS 11/21/17 13:30 Knee - Left Gram Stain - Final 11/21/17 13:30 Knee - Left Wound Culture - Preliminary NO GROWTH AFTER 24 HOURS 11/21/17 13:30 Knee - Left Gram Stain - Final 11/21/17 13:30 Knee - Left Wound Culture - Preliminary NO GROWTH AFTER 24 HOURS 11/21/17 13:30 Knee - Left Gram Stain - Final 11/21/17 13:30 Knee - Left Wound Culture - Preliminary NO GROWTH AFTER 24 HOURS 11/21/17 13:30 Knee - Left Gram Stain - Final 11/21/17 13:30 Knee - Left Wound Culture - Preliminary NO GROWTH AFTER 24 HOURS Most Recent Lab Values WBC 11.8 K/uL (4.8-10.8) H D 11/22/17 05:20 RBC 4.43 Mil/uL (4.40-5.90) 11/22/17 05:20 Hgb 12.6 g/dL (12.0-18.0) 11/22/17 05:20 Hct 38.7 % (35.0-51.0) 11/22/17 05:20 MCV 87.3 fl (80.0-94.0) 11/22/17 05:20 MCH 28.5 pg (27.0-31.0) 11/22/17 05:20 MCHC 32.7 g/dL (33.0-37.0) L 11/22/17 05:20 RDW 14.7 % (11.5-14.5) H 11/22/17 05:20 Plt Count 187 K/uL (130-400) 11/22/17 05:20 MPV 8.1 fl (7.2-11.7) 11/22/17 05:20 Neut % (Auto) 86.8 % (50.0-75.0) H 11/22/17 05:20 Lymph % (Auto) 9.2 % (20.0-40.0) L 11/22/17 05:20 Prentiss % (Auto) 3.9 % (0.0-10.0) 11/22/17 05:20 Eos % (Auto) 0.0 % (0.0-4.0) 11/22/17 05:20 Baso % (Auto) 0.1 % (0.0-2.0) 11/22/17 05:20 Neut # (Auto) 10.2 K/uL (1.8-7.0) H 11/22/17 05:20 Lymph # (Auto) 1.1 K/uL (1.0-4.3) 11/22/17 05:20 Prentiss # (Auto) 0.5 K/uL (0.0-0.8) 11/22/17 05:20 Eos # (Auto) 0.0 K/uL (0.0-0.7) 11/22/17 05:20 Baso # (Auto) 0.0 K/uL (0.0-0.2) 11/22/17 05:20 Neutrophils % (Manual) 86 % (42-75) H 11/22/17 05:20 Band Neutrophils % 1 % (0-2) 11/22/17 05:20 Lymphocytes % (Manual) 7 % (20-50) L 11/22/17 05:20 Reactive Lymphs % 3 % (0-0) H 11/22/17 05:20 Monocytes % (Manual) 3 % (0-10) 11/22/17 05:20 Platelet Estimate Normal (NORMAL) 11/22/17 05:20 RBC Morphology Normal (NORMAL) 11/22/17 05:20 ESR 35 mm/hr (0-20) H 11/23/17 05:15 PT 13.3 Seconds (9.8-13.1) H 11/22/17 05:20 INR 1.2 (0.9-1.2) 11/22/17 05:20 APTT 27.3 Seconds (25.6-37.1) 11/22/17 05:20 Sodium 140 mmol/l (132-148) 11/23/17 05:15 Potassium 3.9 MMOL/L (3.6-5.0) 11/23/17 05:15 Chloride 102 mmol/L (98-107) 11/23/17 05:15 Carbon Dioxide 27 mmol/L (22-30) 11/23/17 05:15 Anion Gap 15 (10-20) 11/23/17 05:15 BUN 19 mg/dl (9-20) 11/23/17 05:15 Creatinine 1.0 mg/dl (0.8-1.5) 11/23/17 05:15 Est GFR ( Amer) > 60 11/23/17 05:15 Est GFR (Non-Af Amer) > 60 11/23/17 05:15 POC Glucose (mg/dL) 117 mg/dL (65-110) H 11/23/17 05:17 Random Glucose 126 mg/dL (75-110) H 11/23/17 05:15 Calcium 8.6 mg/dL (8.4-10.2) 11/23/17 05:15 Total Bilirubin 1.1 mg/dl (0.2-1.3) 11/23/17 05:15 AST 29 U/L (17-59) 11/23/17 05:15 ALT 52 U/L (21-72) 11/23/17 05:15 Alkaline Phosphatase 33 U/L (38-126) L 11/23/17 05:15 Total Protein 6.6 G/DL (6.3-8.2) 11/23/17 05:15 Albumin 3.6 g/dL (3.5-5.0) 11/23/17 05:15 Globulin 2.9 gm/dL (2.2-3.9) 11/23/17 05:15 Albumin/Globulin Ratio 1.2 (1.0-2.1) 11/23/17 05:15 Urine Color Yellow (YELLOW) 11/21/17 08:30 Urine Clarity Clear (Clear) 11/21/17 08:30 Urine pH 5.0 (5.0-8.0) 11/21/17 08:30 Ur Specific Bowen 1.020 (1.003-1.030) 11/21/17 08:30 Urine Protein Negative mg/dL (NEGATIVE) 11/21/17 08:30 Urine Glucose (UA) Neg mg/dL (Normal) 11/21/17 08:30 Urine Ketones Negative mg/dL (NEGATIVE) 11/21/17 08:30 Urine Blood Negative (NEGATIVE) 11/21/17 08:30 Urine Nitrate Negative (NEGATIVE) 11/21/17 08:30 Urine Bilirubin Negative (NEGATIVE) 11/21/17 08:30 Urine Urobilinogen 0.2-1.0 mg/dL (0.2-1.0) 11/21/17 08:30 Ur Leukocyte Esterase Neg Henrik/uL (Negative) 11/21/17 08:30 Urine RBC (Auto) 1 /hpf (0-3) 11/21/17 08:30 Urine Microscopic WBC < 1 /hpf (0-5) 11/21/17 08:30 Fluid Type Synovial fluid 11/21/17 13:30 Synovial WBC 281.0 /mm3 (0.0-150.0) H 11/21/17 13:30 Synovial RBC 1733.0 /mm3 (0.0-0.0) H 11/21/17 13:30 Synovial Neutrophils 3.0 % (0-0) H 11/21/17 13:30 Synovial Lymphocytes 88.0 % (0-0) H 11/21/17 13:30 Synov Monos/Macrophage 9 % (0-0) H 11/21/17 13:30 Synovial Fluid Comment Sl bloody 11/21/17 13:30 Blood Type A POSITIVE 11/21/17 06:45 Antibody Screen Negative 11/21/17 06:45 Crossmatch See Detail 11/21/17 06:45 BBK History Checked No verified bt 11/21/17 06:45 - Hospital Course Hospital Course: 62 y.o male with PMHx of DM, arthritis, and painful left TKR underwent revision L TKR- tibial and patella component, anterior and posterior synovectomy, posterior capsule release, lateral patella release, excision skin/subcutaneous tissue and muscle by Dr. Hunter on 11/22/18. Patient is hemodynamically stable, in NAD, afebrile, and clinically stable, and decision was made to discharge patient to TCU. Patient to continue PT/OT. Patient will followup with Dr. Hunter as an outpatient. Discharge Exam - Head Exam Head Exam: ATRAUMATIC, NORMAL INSPECTION, NORMOCEPHALIC - Eye Exam Eye Exam: EOMI, Normal appearance, PERRL Pupil Exam: NORMAL ACCOMODATION - ENT Exam ENT Exam: Mucous Membranes Moist, Normal Exam - Neck Exam Neck exam: Full Rom, Normal Inspection - Respiratory Exam Respiratory Exam: Clear to PA & Lateral, UNREMARKABLE. absent: Prolonged Expiratory Phase, Rales, Rhonchi, Wheezes, Respiratory Distress - Cardiovascular Exam Cardiovascular Exam: REGULAR RHYTHM, +S1, +S2 - GI/Abdominal Exam GI & Abdominal Exam: Normal Bowel Sounds, Unremarkable - Extremities Exam Additional comments: No calf tenderness or pain with palpation/calf squeeze b/l Immobilizer device is c/d/i to left Temperature gradient WNL, CFT < 3 seconds to digits NVSI, patient able to wiggle toes, dorsiflex and plantarflex ankle Hemovac removed in the AM - Neurological Exam Neurological exam: Alert, Oriented x3 - Psychiatric Exam Psychiatric exam: Normal Affect, Normal Mood - Skin Skin Exam: Dry, Intact, Normal Color, Warm Discharge Plan - Follow Up Plan Condition: GOOD Disposition: REHAB FACILITY/REHAB UNIT Instructions: Total Knee Replacement (DC) Additional Instructions: patient d/c to TCU Referrals: Tyree Hunter III, MD [Primary Care Provider] - <Angelic Pichardo - Last Filed: 11/23/17 16:23> Provider - Provider Date of Admission: 11/21/17 08:10 Attending physician: García Arreola MD Primary care physician: Tyree Hunter III, MD Hospital Course - Lab Results Lab Results: Micro Results 11/21/17 13:30 Knee - Left Gram Stain - Final 11/21/17 13:30 Knee - Left Wound Culture - Preliminary No growth. 11/21/17 13:30 Knee - Left Gram Stain - Final 11/21/17 13:30 Knee - Left Wound Culture - Preliminary No growth. 11/21/17 13:30 Knee - Left Gram Stain - Final 11/21/17 13:30 Knee - Left Wound Culture - Preliminary No growth. 11/21/17 13:30 Knee - Left Gram Stain - Final 11/21/17 13:30 Knee - Left Wound Culture - Preliminary No growth. 11/21/17 13:30 Knee - Left Gram Stain - Final 11/21/17 13:30 Knee - Left Wound Culture - Preliminary No growth. 11/21/17 13:30 Knee - Left Gram Stain - Final 11/21/17 13:30 Knee - Left Wound Culture - Preliminary No growth. 11/21/17 13:30 Knee - Left Gram Stain - Final 11/21/17 13:30 Knee - Left Wound Culture - Preliminary No growth. 11/21/17 13:30 Knee - Left Gram Stain - Final 11/21/17 13:30 Knee - Left Wound Culture - Preliminary No growth. 11/21/17 13:30 Knee - Left Gram Stain - Final 11/21/17 13:30 Knee - Left Wound Culture - Preliminary No growth. 11/21/17 13:30 Knee - Left Gram Stain - Final 11/21/17 13:30 Knee - Left Wound Culture - Preliminary No growth. 11/21/17 13:30 Knee - Left Gram Stain - Final 11/21/17 13:30 Knee - Left Wound Culture - Preliminary No growth. 11/21/17 13:30 Knee - Left Gram Stain - Final 11/21/17 13:30 Knee - Left Wound Culture - Preliminary No growth. 11/21/17 13:30 Knee - Left Gram Stain - Final 11/21/17 13:30 Knee - Left Wound Culture - Preliminary No growth. 11/21/17 13:30 Knee - Left Gram Stain - Final 11/21/17 13:30 Knee - Left Wound Culture - Preliminary No growth. 11/21/17 13:30 Knee - Left Gram Stain - Final 11/21/17 13:30 Knee - Left Anaerobic Culture - Final NO ANAEROBES ISOLATED. 11/21/17 13:30 Knee - Left Wound Culture - Preliminary No growth. 11/21/17 13:30 Knee - Left Gram Stain - Final 11/21/17 13:30 Knee - Left Anaerobic Culture - Final NO ANAEROBES ISOLATED. 11/21/17 13:30 Knee - Left Wound Culture - Preliminary No growth. 11/21/17 13:30 Knee Left Fungal Culture - Preliminary 11/21/17 13:30 Other: Please Indicate Mycobacterial Culture - Preliminary 11/21/17 13:00 Other: Please Indicate Mycobacterial Culture - Preliminary Most Recent Lab Values WBC 11.8 K/uL (4.8-10.8) H D 11/22/17 05:20 RBC 4.43 Mil/uL (4.40-5.90) 11/22/17 05:20 Hgb 12.6 g/dL (12.0-18.0) 11/22/17 05:20 Hct 38.7 % (35.0-51.0) 11/22/17 05:20 MCV 87.3 fl (80.0-94.0) 11/22/17 05:20 MCH 28.5 pg (27.0-31.0) 11/22/17 05:20 MCHC 32.7 g/dL (33.0-37.0) L 11/22/17 05:20 RDW 14.7 % (11.5-14.5) H 11/22/17 05:20 Plt Count 187 K/uL (130-400) 11/22/17 05:20 MPV 8.1 fl (7.2-11.7) 11/22/17 05:20 Neut % (Auto) 86.8 % (50.0-75.0) H 11/22/17 05:20 Lymph % (Auto) 9.2 % (20.0-40.0) L 11/22/17 05:20 Prentiss % (Auto) 3.9 % (0.0-10.0) 11/22/17 05:20 Eos % (Auto) 0.0 % (0.0-4.0) 11/22/17 05:20 Baso % (Auto) 0.1 % (0.0-2.0) 11/22/17 05:20 Neut # (Auto) 10.2 K/uL (1.8-7.0) H 11/22/17 05:20 Lymph # (Auto) 1.1 K/uL (1.0-4.3) 11/22/17 05:20 Prentiss # (Auto) 0.5 K/uL (0.0-0.8) 11/22/17 05:20 Eos # (Auto) 0.0 K/uL (0.0-0.7) 11/22/17 05:20 Baso # (Auto) 0.0 K/uL (0.0-0.2) 11/22/17 05:20 Neutrophils % (Manual) 86 % (42-75) H 11/22/17 05:20 Band Neutrophils % 1 % (0-2) 11/22/17 05:20 Lymphocytes % (Manual) 7 % (20-50) L 11/22/17 05:20 Reactive Lymphs % 3 % (0-0) H 11/22/17 05:20 Monocytes % (Manual) 3 % (0-10) 11/22/17 05:20 Platelet Estimate Normal (NORMAL) 11/22/17 05:20 RBC Morphology Normal (NORMAL) 11/22/17 05:20 ESR 35 mm/hr (0-20) H 11/23/17 05:15 PT 13.3 Seconds (9.8-13.1) H 11/22/17 05:20 INR 1.2 (0.9-1.2) 11/22/17 05:20 APTT 27.3 Seconds (25.6-37.1) 11/22/17 05:20 Sodium 140 mmol/l (132-148) 11/23/17 05:15 Potassium 3.9 MMOL/L (3.6-5.0) 11/23/17 05:15 Chloride 102 mmol/L (98-107) 11/23/17 05:15 Carbon Dioxide 27 mmol/L (22-30) 11/23/17 05:15 Anion Gap 15 (10-20) 11/23/17 05:15 BUN 19 mg/dl (9-20) 11/23/17 05:15 Creatinine 1.0 mg/dl (0.8-1.5) 11/23/17 05:15 Est GFR ( Amer) > 60 11/23/17 05:15 Est GFR (Non-Af Amer) > 60 11/23/17 05:15 POC Glucose (mg/dL) 207 mg/dL (65-110) H 11/23/17 10:43 Random Glucose 126 mg/dL (75-110) H 11/23/17 05:15 Calcium 8.6 mg/dL (8.4-10.2) 11/23/17 05:15 Total Bilirubin 1.1 mg/dl (0.2-1.3) 11/23/17 05:15 AST 29 U/L (17-59) 11/23/17 05:15 ALT 52 U/L (21-72) 11/23/17 05:15 Alkaline Phosphatase 33 U/L (38-126) L 11/23/17 05:15 Total Protein 6.6 G/DL (6.3-8.2) 11/23/17 05:15 Albumin 3.6 g/dL (3.5-5.0) 11/23/17 05:15 Globulin 2.9 gm/dL (2.2-3.9) 11/23/17 05:15 Albumin/Globulin Ratio 1.2 (1.0-2.1) 11/23/17 05:15 Urine Color Yellow (YELLOW) 11/21/17 08:30 Urine Clarity Clear (Clear) 11/21/17 08:30 Urine pH 5.0 (5.0-8.0) 11/21/17 08:30 Ur Specific Bowen 1.020 (1.003-1.030) 11/21/17 08:30 Urine Protein Negative mg/dL (NEGATIVE) 11/21/17 08:30 Urine Glucose (UA) Neg mg/dL (Normal) 11/21/17 08:30 Urine Ketones Negative mg/dL (NEGATIVE) 11/21/17 08:30 Urine Blood Negative (NEGATIVE) 11/21/17 08:30 Urine Nitrate Negative (NEGATIVE) 11/21/17 08:30 Urine Bilirubin Negative (NEGATIVE) 11/21/17 08:30 Urine Urobilinogen 0.2-1.0 mg/dL (0.2-1.0) 11/21/17 08:30 Ur Leukocyte Esterase Neg Henrik/uL (Negative) 11/21/17 08:30 Urine RBC (Auto) 1 /hpf (0-3) 11/21/17 08:30 Urine Microscopic WBC < 1 /hpf (0-5) 11/21/17 08:30 Fluid Type Synovial fluid 11/21/17 13:30 Synovial WBC 281.0 /mm3 (0.0-150.0) H 11/21/17 13:30 Synovial RBC 1733.0 /mm3 (0.0-0.0) H 11/21/17 13:30 Synovial Neutrophils 3.0 % (0-0) H 11/21/17 13:30 Synovial Lymphocytes 88.0 % (0-0) H 11/21/17 13:30 Synov Monos/Macrophage 9 % (0-0) H 11/21/17 13:30 Synovial Fluid Comment Sl bloody 11/21/17 13:30 Blood Type A POSITIVE 11/21/17 06:45 Antibody Screen Negative 11/21/17 06:45 Crossmatch See Detail 11/21/17 06:45 BBK History Checked No verified bt 11/21/17 06:45 Attending/Attestation - Attestation I have personally seen and examined this patient.: Yes I have fully participated in the care of the patient.: Yes I have reviewed all pertinent clinical information, including history, physical exam and plan: Yes Notes (Text): Painful Left TKR s/p Revision TKR - pt is stable , Pain controlled, refuses narcotics and would like to take Tylenol only - empirically started on Ertapenem by ID - d/c to TCU for further Rehab - Ortho and ID will continue to ff up pt in TCU
[2017-11-23] MEDS: Enoxaparin 40 mg Syringe SC SCH (09:25)
[2017-11-23] MEDS: Multivitamin With Minerals Tab PO SCH (09:26)
[2017-11-23] MEDS: Pantoprazole 40 mg EC Tab PO SCH (09:26)
--- NOTE | 2017-11-23 11:43 | CP.PCM.PN ---
Subjective - Date & Time of Evaluation Date of Evaluation: 11/23/17 Time of Evaluation: 11:43 - Subjective Subjective: Patient was seen and examined at bedside comfortable. His pain is improved compared to yesterday with PO meds. Tolerating diet. Able to use CPM and transfer with PT without difficulties. No new complaints. Objective - Vital Signs/Intake and Output Vital Signs (last 24 hours): Temp Pulse Resp BP Pulse Ox 97.7 F 107 H 20 133/76 90 L 11/23/17 07:53 11/23/17 07:53 11/23/17 07:53 11/23/17 07:53 11/23/17 07:53 - Medications Medications: Current Medications Acetaminophen (Tylenol 325mg Tab) 650 mg PO Q6 PRN PRN Reason: Fever >100.4 F Acetaminophen (Tylenol 325mg Tab) 650 mg PO Q6 PRN PRN Reason: Pain, Mild (1-3) Last Admin: 11/23/17 09:39 Dose: 650 mg Artificial Tears (Artificial Tears) 2 drop OU Q4 PRN PRN Reason: Dry eyes Enoxaparin Sodium (Lovenox) 40 mg SC DAILY [facility] PRN Reason: Protocol Last Admin: 11/23/17 09:25 Dose: 40 mg Sodium Chloride (Sodium Chloride 0.9%) 1,000 mls @ 100 mls/hr IV .Q10H [facility] Last Admin: 11/23/17 04:07 Dose: Not Given Lactated Ringer's (Lactated Ringer's) 1,000 mls @ 100 mls/hr IV .Q10H [facility] Vancomycin HCl 1 gm/ Sodium (Chloride) 250 mls @ 166.667 mls/hr IVPB Q12 [facility] PRN Reason: Protocol Last Admin: 11/23/17 09:26 Dose: 166.667 mls/hr Ertapenem 1 gm/ Sodium (Chloride) 100 mls @ 100 mls/hr IVPB DAILY [facility] PRN Reason: Protocol Last Admin: 11/23/17 09:23 Dose: 100 mls/hr Metformin HCl (Glucophage) 1,000 mg PO BID [facility] Last Admin: 11/23/17 09:22 Dose: 1,000 mg Multivitamins/Minerals (Therapeutic-M Tab) 1 tab PO DAILY [facility] Last Admin: 11/23/17 09:26 Dose: 1 tab Ondansetron HCl (Zofran Inj) 4 mg IVP Q6 PRN PRN Reason: Nausea/Vomiting Pantoprazole Sodium (Protonix Ec Tab) 40 mg PO DAILY [facility] Last Admin: 11/23/17 09:26 Dose: 40 mg Sitagliptin Phosphate (Januvia) 100 mg PO DAILY [facility] Last Admin: 11/23/17 09:25 Dose: 100 mg - Labs Labs: 11/22/17 05:20 11/23/17 05:15 PT 13.3 Seconds (9.8-13.1) H 11/22/17 05:20 INR 1.2 (0.9-1.2) 11/22/17 05:20 APTT 27.3 Seconds (25.6-37.1) 11/22/17 05:20 - Constitutional Appears: No Acute Distress - Extremities Exam Additional comments: Left knee: Dressings clean dry and intact. Hemovac drain removed this AM. Mild tenderness to palpation. Sensation intact SP/DP/TN. Motor intact EHL/FHL. Pedal pulses intact. Calves soft and NT b/l. - Neurological Exam Neurological Exam: Alert, Awake, Oriented x3 - Psychiatric Exam Psychiatric exam: Normal Affect, Normal Mood Assessment and Plan (1) Painful total knee replacement, left Assessment & Plan: Patient is POD#1 from revision L TKA and extensive synovectomy -pain control -PT/OT continue CPM, ambulation training with walker -Drain removed this AM -Surgical cultures finalled neg for growth -Cleared to d/c to TCU -Above discussed with Dr. Hunter Status: Acute (2) Synovitis of knee Status: Acute
--- NOTE | 2017-11-23 12:07 | CP.PCM.PN ---
Subjective - Date & Time of Evaluation Date of Evaluation: 11/23/17 Time of Evaluation: 08:45 - Subjective Subjective: NO CHEST PAIN OR SOB Objective - Vital Signs/Intake and Output Vital Signs (last 24 hours): Temp Pulse Resp BP Pulse Ox 97.7 F 107 H 20 133/76 90 L 11/23/17 07:53 11/23/17 07:53 11/23/17 07:53 11/23/17 07:53 11/23/17 07:53 - Medications Medications: Current Medications Acetaminophen (Tylenol 325mg Tab) 650 mg PO Q6 PRN PRN Reason: Fever >100.4 F Acetaminophen (Tylenol 325mg Tab) 650 mg PO Q6 PRN PRN Reason: Pain, Mild (1-3) Last Admin: 11/23/17 09:39 Dose: 650 mg Artificial Tears (Artificial Tears) 2 drop OU Q4 PRN PRN Reason: Dry eyes Enoxaparin Sodium (Lovenox) 40 mg SC DAILY [facility] PRN Reason: Protocol Last Admin: 11/23/17 09:25 Dose: 40 mg Sodium Chloride (Sodium Chloride 0.9%) 1,000 mls @ 100 mls/hr IV .Q10H [facility] Last Admin: 11/23/17 04:07 Dose: Not Given Lactated Ringer's (Lactated Ringer's) 1,000 mls @ 100 mls/hr IV .Q10H [facility] Vancomycin HCl 1 gm/ Sodium (Chloride) 250 mls @ 166.667 mls/hr IVPB Q12 [facility] PRN Reason: Protocol Last Admin: 11/23/17 09:26 Dose: 166.667 mls/hr Ertapenem 1 gm/ Sodium (Chloride) 100 mls @ 100 mls/hr IVPB DAILY [facility] PRN Reason: Protocol Last Admin: 11/23/17 09:23 Dose: 100 mls/hr Metformin HCl (Glucophage) 1,000 mg PO BID [facility] Last Admin: 11/23/17 09:22 Dose: 1,000 mg Multivitamins/Minerals (Therapeutic-M Tab) 1 tab PO DAILY [facility] Last Admin: 11/23/17 09:26 Dose: 1 tab Ondansetron HCl (Zofran Inj) 4 mg IVP Q6 PRN PRN Reason: Nausea/Vomiting Pantoprazole Sodium (Protonix Ec Tab) 40 mg PO DAILY [facility] Last Admin: 11/23/17 09:26 Dose: 40 mg Sitagliptin Phosphate (Januvia) 100 mg PO DAILY [facility] Last Admin: 11/23/17 09:25 Dose: 100 mg - Labs Labs: 11/22/17 05:20 11/23/17 05:15 PT 13.3 Seconds (9.8-13.1) H 11/22/17 05:20 INR 1.2 (0.9-1.2) 11/22/17 05:20 APTT 27.3 Seconds (25.6-37.1) 11/22/17 05:20 - Respiratory Exam Respiratory Exam: Clear to Ausculation Bilateral - Cardiovascular Exam Cardiovascular Exam: REGULAR RHYTHM, +S1, +S2 Assessment and Plan - Assessment and Plan (Free Text) Assessment: REVISION OF LEFT TKR DM Plan: FOR DISCHARGE TO SUBACUTE REHAB TODAY
[2017-11-23 12:46] VITALS: PULSE 90; TEMP 98.6
== END 2017-11-23 14:53 | DRG 468 ==
LOC: H.OPSURG 05:52 → H.MEDSURG1 08:10
PROVIDERS: ADMIT Hospitalist; ATTEND Hospitalist
PROC: 3E0T3BZ Introduction of Anesthetic Agent into Peripheral Nerves and Plexi, Percutaneous Approach (ICD-10-PCS; 2017-11-21)
PROC: 3E0T33Z Introduction of Anti-inflammatory into Peripheral Nerves and Plexi, Percutaneous Approach (ICD-10-PCS; 2017-11-21)
PROC: 0SPD0JC Removal of Synthetic Substitute from Left Knee Joint, Patellar Surface, Open Approach (ICD-10-PCS; principal; 2017-11-21 10:45)
PROC: 0SPW0JZ Removal of Synthetic Substitute from Left Knee Joint, Tibial Surface, Open Approach (ICD-10-PCS; 2017-11-21 10:45)
PROC: 0SRW0J9 Replacement of Left Knee Joint, Tibial Surface with Synthetic Substitute, Cemented, Open Approach (ICD-10-PCS; 2017-11-21 10:45)
DX: T84.84XA Pain due to internal orthopedic prosthetic devices, implants and grafts, initial encounter (principal); D72.828 Other elevated white blood cell count; M23.52 Chronic instability of knee, left knee; M65.862 Other synovitis and tenosynovitis, left lower leg; E11.9 Type 2 diabetes mellitus without complications; Y83.1 Surgical operation with implant of artificial internal device as the cause of abnormal reaction of the patient, or of later complication, without mention of misadventure at the time of the procedure; Z88.6 Allergy status to analgesic agent; Z87.891 Personal history of nicotine dependence

== ENCOUNTER 2017-11-23 11:18 | Inpatient (IN) | payer BC ==
[2017-11-23 15:22] VITALS: BMI 33.4
[2017-11-23] MEDS ORDERED: Artificial Tears Opht Soln OU PRN (15:33)
[2017-11-23 16:08] VITALS: RESP 20
[2017-11-24 07:26] LABS: HEMOGLOBIN 12.1 g/dL (12.0-18.0); MEAN CELL VOLUME 86.2 fl (80.0-94.0); MEAN CORPUSCULAR HEMOGLOBIN 29.9 pg (27.0-31.0); MEAN CORPUSCULAR HGB CONC 34.7 g/dL (33.0-37.0); RBC 4.03 Mil/uL (4.40-5.90); RED CELL DISTRIBUTION WIDTH 14.6 % (11.5-14.5); WHITE BLOOD COUNT 8.9 K/uL (4.8-10.8)
[2017-11-24] MEDS: Enoxaparin 40 mg Syringe SC SCH (08:17)
[2017-11-24] MEDS: Multivitamin With Minerals Tab PO SCH (08:17)
[2017-11-24] MEDS: Pantoprazole 40 mg EC Tab PO SCH (08:17)
[2017-11-24 08:26] LABS: BLOOD UREA NITROGEN 17 mg/dl (9-20); CALCIUM 8.8 mg/dL (8.4-10.2); GFR AFRICAN-AMERICAN > 60; GFR NON-AFRICAN AMERICAN > 60
--- NOTE | 2017-11-24 08:33 | CP.PCM.HP ---
<Singh Martin - Last Filed: 11/24/17 15:52> History of Present Illness - History of Present Illness History of Present Illness: Hospitalist History and Physical Note- Dr. Johnson 62 y.o male with PMHx of DM, arthritis, and left TKR seen and evaluated in TCU 3 days s/p left knee revision arthroplasty surgery on 11/21/[address] Hunter. Original TKR was 3 years ago; in the last few months, progressive pain to left knee. Pt thus had aspiration to left knee last month. Pain did not resolved and underwent left total knee replacement revision. Today he reports he feels better. He has continued physical therapy without issues. Patient denies urinary problems. Denies problems with bowel movements. Denies chills, fever, shortness of breath, chest pain, diarrhea, or vomiting. PMHx: DM, arthritis PSH: left TKR, left knee aspiration, hernia repairs x 3 (2 inguinal hernias), varcoise veins keli, skin graft R index finger MEDS: Metformin, Januvia ALL: Aspirin- rash, swells FH: denies SH: former smoker (quit 5 years ago), 3ppd x30 years, denies drinking (quit 8 years ago) or illicit drug use, lives at home with stairs Present on Admission - Present on Admission Any Indicators Present on Admission: No Past Patient History - Past Medical History & Family History Past Medical History?: Yes - Past Social History Smoking Status: Former Smoker - CARDIAC Hx Cardiac Disorders: No - PULMONARY Hx Respiratory Disorders: No - NEUROLOGICAL Hx Neurological Disorder: No - HEENT Hx HEENT Problems: No - RENAL Hx Chronic Kidney Disease: No - ENDOCRINE/METABOLIC Hx Endocrine Disorders: Yes Hx Diabetes Mellitus Type 2: Yes - HEMATOLOGICAL/ONCOLOGICAL Hx Blood Disorders: No Hx Blood Transfusions: Yes Hx Blood Transfusion Reaction: No - INTEGUMENTARY Hx Dermatological Problems: No - MUSCULOSKELETAL/RHEUMATOLOGICAL Hx Musculoskeletal Disorders: No Hx Arthritis: Yes Hx Falls: No - GASTROINTESTINAL Hx Gastrointestinal Disorders: No - GENITOURINARY/GYNECOLOGICAL Hx Genitourinary Disorders: No - PSYCHIATRIC Hx Emotional Abuse: No Hx Physical Abuse: No - SURGICAL HISTORY Hx Surgeries: Yes Hx Herniorrhaphy: Yes (inguinal hernia keli,x2 on right) Hx Joint Replacement: Yes (left knee) Hx Orthopedic Surgery: Yes (left knee replaced) Other/Comment: keli varicose veins,skin graft on right index finger - ANESTHESIA Hx Anesthesia: Yes Hx Anesthesia Reactions: No Hx Malignant Hyperthermia: No Meds Allergies/Adverse Reactions: Allergies Allergy/AdvReac Type Severity Reaction Status Date / Time aspirin Allergy RASH Verified 11/21/17 07:24 Physical Exam - Constitutional Appears: Well, Non-toxic, No Acute Distress - Head Exam Head Exam: ATRAUMATIC, NORMAL INSPECTION - Eye Exam Eye Exam: EOMI, Normal appearance, PERRL Pupil Exam: NORMAL ACCOMODATION - ENT Exam ENT Exam: Mucous Membranes Moist, Normal Exam - Neck Exam Neck exam: Positive for: Normal Inspection - Respiratory Exam Respiratory Exam: Clear to Auscultation Bilateral, NORMAL BREATHING PATTERN. absent: Prolonged Expiratory Phase, Rales, Rhonchi, Wheezes, Respiratory Distress, Stridor - Cardiovascular Exam Cardiovascular Exam: REGULAR RHYTHM, +S1, +S2 - GI/Abdominal Exam GI & Abdominal Exam: Normal Bowel Sounds, Soft. absent: Tenderness - Extremities Exam Extremities exam: Negative for: calf tenderness Additional comments: Dressing c/d/i without strikethrough Temperature gradient WNL Patient able to wiggle toes Protective and gross sensation intact - Back Exam Back exam: NORMAL INSPECTION. absent: CVA tenderness (L), CVA tenderness (R) - Neurological Exam Neurological exam: Alert, Oriented x3 Results - Vital Signs Recent Vital Signs: Last Vital Signs Temp 98.6 F 11/24/17 07:46 Pulse 99 H 11/24/17 07:46 Resp 20 11/24/17 07:46 BP 124/70 11/24/17 07:46 Pulse Ox 99 11/24/17 07:46 - Labs Result Diagrams: 11/24/17 07:15 11/24/17 04:00 Labs: Laboratory Results - last 24 hr 11/23/17 11/23/17 11/24/17 17:18 20:30 04:00 WBC RBC Hgb Hct MCV MCH MCHC RDW Plt Count Sodium 139 Potassium 3.8 Chloride 100 Carbon Dioxide 26 Anion Gap 17 BUN 17 Creatinine 1.0 Est GFR ( Amer) > 60 Est GFR (Non-Af Amer) > 60 POC Glucose (mg/dL) 125 H 139 H Random Glucose 149 H Calcium 8.8 11/24/17 11/24/17 05:04 07:15 WBC 8.9 RBC 4.03 L Hgb 12.1 Hct 34.7 L MCV 86.2 MCH 29.9 MCHC 34.7 RDW 14.6 H Plt Count 184 Sodium Potassium Chloride Carbon Dioxide Anion Gap BUN Creatinine Est GFR ( Amer) Est GFR (Non-Af Amer) POC Glucose (mg/dL) 135 H Random Glucose Calcium Assessment & Plan - Assessment and Plan (Free Text) Assessment: 62 y.o male with PMHx of DM, arthritis, and left TKR seen and evaluated in TCU 3 days s/p revision L TKR- tibial and patella component, anterior and posterior synovectomy, posterior capsule release, lateral patella release, excision skin/ subcutaneous tissue and muscle on 11/21/[address] Hunter. Plan: 1. Painful left TKR -s/p revisional left TKR -c/w current pain management -PT/OT 2. s/p revisional left TKR -s/p revision L TKR- tibial and patella component, anterior and posterior synovectomy, posterior capsule release, lateral patella release, excision skin/ subcutaneous tissue and muscle -PT/OT -f/u culture -Zofran prn -Per ID, Vanco 1 g IV piggyback q12 and Ertapenem 1g q 24 per ID 3. DM -c/w Metformin, Januvia 4. GI ulcer prophylaxis -Pantroprazole 5. DVT prophylaxis -Lovenox 6. Leukocytosis -resolved -likely reactive -will monitor <Lola Johnson - Last Filed: 11/24/17 16:37> Results - Vital Signs Recent Vital Signs: Last Vital Signs Temp 97.7 F 11/24/17 16:27 Pulse 114 H 11/24/17 16:27 Resp 20 11/24/17 16:27 BP 110/77 11/24/17 16:27 Pulse Ox 95 11/24/17 16:27 - Labs Result Diagrams: 11/24/17 07:15 11/24/17 04:00 Labs: Laboratory Results - last 24 hr 11/23/1718 11/24/17 17:18 20:30 04:00 WBC RBC Hgb Hct MCV MCH MCHC RDW Plt Count Sodium 139 Potassium 3.8 Chloride 100 Carbon Dioxide 26 Anion Gap 17 BUN 17 Creatinine 1.0 Est GFR ( Amer) > 60 Est GFR (Non-Af Amer) > 60 POC Glucose (mg/dL) 125 H 139 H Random Glucose 149 H Calcium 8.8 11/24/17 11/24/17 11/24/17 05:04 07:15 10:43 WBC 8.9 RBC 4.03 L Hgb 12.1 Hct 34.7 L MCV 86.2 MCH 29.9 MCHC 34.7 RDW 14.6 H Plt Count 184 Sodium Potassium Chloride Carbon Dioxide Anion Gap BUN Creatinine Est GFR ( Amer) Est GFR (Non-Af Amer) POC Glucose (mg/dL) 135 H 178 H Random Glucose Calcium 11/24/17 16:16 WBC RBC Hgb Hct MCV MCH MCHC RDW Plt Count Sodium Potassium Chloride Carbon Dioxide Anion Gap BUN Creatinine Est GFR ( Amer) Est GFR (Non-Af Amer) POC Glucose (mg/dL) 144 H Random Glucose Calcium Attending/Attestation - Attestation I have personally seen and examined this patient.: Yes I have fully participated in the care of the patient.: Yes I have reviewed all pertinent clinical information: Yes Notes (Text): 11/24/17 16:36 seen examined discussed with Dr. Lamar, agree with findings and plan as above.
--- NOTE | 2017-11-25 08:45 | CP.PCM.PN ---
Subjective - Date & Time of Evaluation Date of Evaluation: 11/25/17 Time of Evaluation: 08:00 - Subjective Subjective: Patient was seen and examined at bedside comfortable. He has no complaints of pain at this time. He is able to be OOB ambulating with PT without difficulties. He feels that he would be ready to be discharged home this weekend. No new complaints. Objective - Vital Signs/Intake and Output Vital Signs (last 24 hours): Temp Pulse Resp BP Pulse Ox 96.4 F L 96 H 20 133/85 93 L 11/25/17 08:38 11/25/17 08:38 11/25/17 08:38 11/25/17 08:38 11/25/17 08:38 - Medications Medications: Current Medications Acetaminophen (Tylenol 325mg Tab) 650 mg PO Q4 PRN PRN Reason: Pain, Mild (1-3) Last Admin: 11/24/17 22:09 Dose: 650 mg Artificial Tears (Artificial Tears) 2 drop OU Q4 PRN PRN Reason: Dry eyes Enoxaparin Sodium (Lovenox) 40 mg SC DAILY [facility] PRN Reason: Protocol Last Admin: 11/24/17 08:17 Dose: 40 mg Ertapenem 1 gm/ Sodium (Chloride) 100 mls @ 100 mls/hr IVPB DAILY@1700 [facility] PRN Reason: Protocol Last Admin: 11/24/17 16:10 Dose: 100 mls/hr Vancomycin HCl 1 gm/ Sodium (Chloride) 250 mls @ 166.667 mls/hr IVPB Q12@0500, 1700 [facility] PRN Reason: Protocol Last Admin: 11/25/17 05:38 Dose: 166.667 mls/hr Metformin HCl (Glucophage) 1,000 mg PO BID@0800,1700 [facility] Last Admin: 11/24/17 16:11 Dose: 1,000 mg Multivitamins/Minerals (Therapeutic-M Tab) 1 tab PO DAILY [facility] Last Admin: 11/24/17 08:17 Dose: 1 tab Ondansetron HCl (Zofran Inj) 4 mg IVP Q6 PRN PRN Reason: Nausea/Vomiting Pantoprazole Sodium (Protonix Ec Tab) 40 mg PO DAILY [facility] Last Admin: 11/24/17 08:17 Dose: 40 mg Sitagliptin Phosphate (Januvia) 100 mg PO DAILY@0800 [facility] - Labs Labs: 11/24/17 07:15 11/24/17 04:00 - Constitutional Appears: No Acute Distress - Eye Exam Eye Exam: Normal appearance - ENT Exam ENT Exam: Mucous Membranes Moist - Respiratory Exam Respiratory Exam: NORMAL BREATHING PATTERN - Extremities Exam Additional comments: Left knee: Dressings clean, dry and intact. Dressings taken down revealing wound clean, dry and intact. No erythema, no drainage. Mild global tenderness secondary to recent surgery. ROM 0-90. Sensation intact DP/SP/TN. Motor intact EHL/FHL/gastroc/TA. Pedal pulses intact. Calves soft and NT b/l. - Neurological Exam Neurological Exam: Alert, Awake, Oriented x3 - Psychiatric Exam Psychiatric exam: Normal Affect, Normal Mood - Skin Skin Exam: Normal Color Assessment and Plan (1) Status post revision of total replacement of left knee Assessment & Plan: Patient is POD#4 from Left revision TKA doing well. -continue ABX as per ID -PT/OT WBAT -knee imm only when in bed -cleared from orthopedic standpoint to be d/c home -will d/w Dr. Hunter Status: Acute
[2017-11-25] MEDS: Enoxaparin 40 mg Syringe SC SCH (08:54)
[2017-11-25] MEDS: Multivitamin With Minerals Tab PO SCH (08:54)
[2017-11-25] MEDS: Pantoprazole 40 mg EC Tab PO SCH (08:54)
[2017-11-26] MEDS: Pantoprazole 40 mg EC Tab PO SCH (08:24)
[2017-11-26] MEDS: Multivitamin With Minerals Tab PO SCH (08:24)
[2017-11-26] MEDS: Enoxaparin 40 mg Syringe SC SCH (08:24)
--- NOTE | 2017-11-26 19:32 | CP.PCM.PN ---
Subjective - Date & Time of Evaluation Date of Evaluation: 11/26/17 Time of Evaluation: 19:30 - Subjective Subjective: I D NOTE DISCUSSED c PATIENT NEED FOR 4 WEEKS OF ANTIBIOTIC RX PICC LINE ORDERED RX WRITTEN FOR VANCOMYCIN AND WEEKLY LABS Objective - Vital Signs/Intake and Output Vital Signs (last 24 hours): Temp Pulse Resp BP Pulse Ox 97.0 F L 89 20 114/81 96 11/26/17 15:59 11/26/17 15:59 11/26/17 15:59 11/26/17 15:59 11/26/17 15:59 - Medications Medications: Current Medications Acetaminophen (Tylenol 325mg Tab) 650 mg PO Q4 PRN PRN Reason: Pain, Mild (1-3) Last Admin: 11/26/17 17:56 Dose: 650 mg Artificial Tears (Artificial Tears) 2 drop OU Q4 PRN PRN Reason: Dry eyes Enoxaparin Sodium (Lovenox) 40 mg SC DAILY [facility] PRN Reason: Protocol Last Admin: 11/26/17 08:24 Dose: 40 mg Ertapenem 1 gm/ Sodium (Chloride) 100 mls @ 100 mls/hr IVPB DAILY@1700 [facility] PRN Reason: Protocol Last Admin: 11/26/17 16:07 Dose: 100 mls/hr Vancomycin HCl 1 gm/ Sodium (Chloride) 250 mls @ 166.667 mls/hr IVPB Q12@0500, 1700 [facility] PRN Reason: Protocol Last Admin: 11/26/17 17:11 Dose: 166.667 mls/hr Metformin HCl (Glucophage) 1,000 mg PO BID@0800,1700 [facility] Last Admin: 11/26/17 16:08 Dose: 1,000 mg Multivitamins/Minerals (Therapeutic-M Tab) 1 tab PO DAILY [facility] Last Admin: 11/26/17 08:24 Dose: 1 tab Ondansetron HCl (Zofran Inj) 4 mg IVP Q6 PRN PRN Reason: Nausea/Vomiting Pantoprazole Sodium (Protonix Ec Tab) 40 mg PO DAILY [facility] Last Admin: 11/26/17 08:24 Dose: 40 mg Sitagliptin Phosphate (Januvia) 100 mg PO DAILY@0800 [facility] Last Admin: 11/26/17 08:24 Dose: 100 mg - Labs Labs: 11/24/17 07:15 11/24/17 04:00
[2017-11-27 07:59] LABS: BASO % 0.6 % (0.0-2.0); EOS # 0.3 K/uL (0.0-0.7); HEMOGLOBIN 10.9 g/dL (12.0-18.0); LYMPH # 1.6 K/uL (1.0-4.3); LYMPH % 24.1 % (20.0-40.0); MEAN CELL VOLUME 86.2 fl (80.0-94.0); MEAN CORPUSCULAR HEMOGLOBIN 29.4 pg (27.0-31.0); MEAN CORPUSCULAR HGB CONC 34.2 g/dL (33.0-37.0); MEAN PLATELET VOLUME 7.3 fl (7.2-11.7); MONO # 0.5 K/uL (0.0-0.8); MONO % 7.8 % (0.0-10.0); NEUT # 4.3 K/uL (1.8-7.0); NEUT % 63.5 % (50.0-75.0); NRBC % 0.2 % (0.0-0.0); RBC 3.72 Mil/uL (4.40-5.90); RED CELL DISTRIBUTION WIDTH 14.4 % (11.5-14.5); WHITE BLOOD COUNT 6.7 K/uL (4.8-10.8)
[2017-11-27 08:19] LABS: ALB/GLOB RATIO 1.1 (1.0-2.1); ALBUMIN 3.6 g/dL (3.5-5.0); ALT/SGPT 41 U/L (21-72); AST/SGOT 28 U/L (17-59); BLOOD UREA NITROGEN 16 mg/dl (9-20); CALCIUM 8.5 mg/dL (8.4-10.2); GFR AFRICAN-AMERICAN > 60; GFR NON-AFRICAN AMERICAN > 60
[2017-11-27] MEDS: Enoxaparin 40 mg Syringe SC SCH (08:44)
[2017-11-27] MEDS: Multivitamin With Minerals Tab PO SCH (08:44)
[2017-11-27] MEDS: Pantoprazole 40 mg EC Tab PO SCH (08:44)
[2017-11-28] MEDS: Multivitamin With Minerals Tab PO SCH (08:26)
[2017-11-28] MEDS: Pantoprazole 40 mg EC Tab PO SCH (08:26)
--- NOTE | 2017-11-28 15:22 | CP.PCM.PN ---
Subjective - Date & Time of Evaluation Date of Evaluation: 11/28/17 Time of Evaluation: 15:16 - Subjective Subjective: Patient states pain is well controlled. Walking independently with cane. PICC line placed today. Objective - Vital Signs/Intake and Output Vital Signs (last 24 hours): Temp Pulse Resp BP Pulse Ox 97.3 F L 80 20 144/79 99 11/28/17 08:01 11/28/17 08:01 11/28/17 08:01 11/28/17 08:01 11/28/17 08:01 - Medications Medications: Current Medications Acetaminophen (Tylenol 325mg Tab) 650 mg PO Q4 PRN PRN Reason: Pain, Mild (1-3) Last Admin: 11/28/17 08:29 Dose: 650 mg Artificial Tears (Artificial Tears) 2 drop OU Q4 PRN PRN Reason: Dry eyes Enoxaparin Sodium (Lovenox) 40 mg SC DAILY [facility] PRN Reason: Protocol Last Admin: 11/27/17 08:44 Dose: 40 mg Ertapenem 1 gm/ Sodium (Chloride) 100 mls @ 100 mls/hr IVPB DAILY@1700 [facility] PRN Reason: Protocol Last Admin: 11/27/17 17:04 Dose: 100 mls/hr Vancomycin HCl 1 gm/ Sodium (Chloride) 250 mls @ 166.667 mls/hr IVPB Q12@0500, 1700 [facility] PRN Reason: Protocol Last Admin: 11/28/17 05:11 Dose: 166.667 mls/hr Metformin HCl (Glucophage) 1,000 mg PO BID@0800,1700 [facility] Last Admin: 11/28/17 08:26 Dose: 1,000 mg Multivitamins/Minerals (Therapeutic-M Tab) 1 tab PO DAILY [facility] Last Admin: 11/28/17 08:26 Dose: 1 tab Ondansetron HCl (Zofran Inj) 4 mg IVP Q6 PRN PRN Reason: Nausea/Vomiting Pantoprazole Sodium (Protonix Ec Tab) 40 mg PO DAILY [facility] Last Admin: 11/28/17 08:26 Dose: 40 mg Sitagliptin Phosphate (Januvia) 100 mg PO DAILY@0800 [facility] Last Admin: 11/28/17 08:26 Dose: 100 mg - Labs Labs: 11/27/17 07:05 11/27/17 07:05 - Extremities Exam Additional comments: Left knee: incision intact, no erythema. Noted swelling as expected. Calves soft NT neg homans +DP/PT pulses Assessment and Plan (1) Status post revision of total replacement of left knee Assessment & Plan: POD#7 s/p left revision poly/patella -for d/c home with IV antibiotics -continue lovenox x14 days total (7 more days) -cont PT/OT -d/w Dr. Hunter, agrees with above -f/u 7-10 days, call for appointment Status: Acute
[2017-11-28] MEDS: Enoxaparin 40 mg Syringe SC SCH (16:01)
[2017-11-28 16:08] VITALS: BP 129/63; PULSE 97; TEMP 97.9; O2SAT 97
--- NOTE | 2017-11-28 16:35 | CP.PCM.DIS ---
Provider - Provider Date of Admission: 11/23/17 15:32 Attending physician: Angelic Pichardo MD Primary care physician: Tyree Hunter III, MD Consults: Dr. Hunter- orthopedics Dr. Mondragon- ID Time Spent in preparation of Discharge (in minutes): 25 Hospital Course - Lab Results Lab Results: Most Recent Lab Values WBC 6.7 K/uL (4.8-10.8) 11/27/17 07:05 RBC 3.72 Mil/uL (4.40-5.90) L 11/27/17 07:05 Hgb 10.9 g/dL (12.0-18.0) L 11/27/17 07:05 Hct 32.0 % (35.0-51.0) L 11/27/17 07:05 MCV 86.2 fl (80.0-94.0) 11/27/17 07:05 MCH 29.4 pg (27.0-31.0) 11/27/17 07:05 MCHC 34.2 g/dL (33.0-37.0) 11/27/17 07:05 RDW 14.4 % (11.5-14.5) 11/27/17 07:05 Plt Count 189 K/uL (130-400) 11/27/17 07:05 MPV 7.3 fl (7.2-11.7) 11/27/17 07:05 Neut % (Auto) 63.5 % (50.0-75.0) 11/27/17 07:05 Lymph % (Auto) 24.1 % (20.0-40.0) 11/27/17 07:05 [place] % (Auto) 7.8 % (0.0-10.0) 11/27/17 07:05 Eos % (Auto) 4.0 % (0.0-4.0) 11/27/17 07:05 Baso % (Auto) 0.6 % (0.0-2.0) 11/27/17 07:05 Neut # (Auto) 4.3 K/uL (1.8-7.0) 11/27/17 07:05 Lymph # (Auto) 1.6 K/uL (1.0-4.3) 11/27/17 07:05 [place] # (Auto) 0.5 K/uL (0.0-0.8) 11/27/17 07:05 Eos # (Auto) 0.3 K/uL (0.0-0.7) 11/27/17 07:05 Baso # (Auto) 0.0 K/uL (0.0-0.2) 11/27/17 07:05 Sodium 140 mmol/l (132-148) 11/27/17 07:05 Potassium 3.9 MMOL/L (3.6-5.0) 11/27/17 07:05 Chloride 98 mmol/L (98-107) 11/27/17 07:05 Carbon Dioxide 27 mmol/L (22-30) 11/27/17 07:05 Anion Gap 19 (10-20) 11/27/17 07:05 BUN 16 mg/dl (9-20) 11/27/17 07:05 Creatinine 0.9 mg/dl (0.8-1.5) 11/27/17 07:05 Est GFR ( Amer) > 60 11/27/17 07:05 Est GFR (Non-Af Amer) > 60 11/27/17 07:05 POC Glucose (mg/dL) 127 mg/dL (65-110) H 11/28/17 10:29 Random Glucose 122 mg/dL (75-110) H 11/27/17 07:05 Calcium 8.5 mg/dL (8.4-10.2) 11/27/17 07:05 Total Bilirubin 1.5 mg/dl (0.2-1.3) H 11/27/17 07:05 AST 28 U/L (17-59) 11/27/17 07:05 ALT 41 U/L (21-72) 11/27/17 07:05 Alkaline Phosphatase 36 U/L (38-126) L 11/27/17 07:05 Total Protein 6.9 G/DL (6.3-8.2) 11/27/17 07:05 Albumin 3.6 g/dL (3.5-5.0) 11/27/17 07:05 Globulin 3.3 gm/dL (2.2-3.9) 11/27/17 07:05 Albumin/Globulin Ratio 1.1 (1.0-2.1) 11/27/17 07:05 Vancomycin Trough 7.6 ug/mL (5.0-10.0) 11/27/17 16:30 - Hospital Course Hospital Course: 62 y.o male with PMHx of DM, arthritis, and left TKR who was admitted to TCU s/ p left knee revision arthroplasty surgery on 11/21/[address] Hunetr. Original TKR was 3 years ago; in the last few months, progressive pain to left knee. Pt thus had aspiration to left knee last month. Pain did not resolved and underwent left total knee replacement revision which was uncomplicated. The patient was discharged to TCU in stable condition. During his stay in TCU, the patient tolerated physical therapy well. He is to continue PT/OT. He is now POD #7. Able to ambulate with a cane. Dr. Mondragon, ID, is on consult for the patient and is recommending 4 weeks total of Vancomycin (he recieved 1 week during his stay at [facility] and should have 3 more weeks as outpatient). He is being discharged to home today in stable condition after PICC line was placed for outpatient IV antibiotics. Patient denies chills, fever, shortness of breath , chest pain, diarrhea, or vomiting. 1. Painful left TKR -s/p revisional left TKR - controlled with Tylenol only -PT/OT - F/u with Dr. Hunter in 5-7 days for appointment. 2. s/p revisional left TKR -s/p revision L TKR- tibial and patella component, anterior and posterior synovectomy, posterior capsule release, lateral patella release, excision skin/ subcutaneous tissue and muscle -PT/OT -Per ID, Vanco 1 g IV piggyback q12 hours for 3 more weeks (4 weeks total) 3. DM -c/w Metformin, Januvia 4. GI ulcer prophylaxis -Pantroprazole 5. DVT prophylaxis - To have one more week of Lovenox 40 mg sc daily- script sent to pharmacy. 6. Leukocytosis -resolved -likely reactive Discharge Exam - Additional Findings Additional findings: Physical exam: Constitutional- cooperative, awake, alert Head- NCAT, PERRL Eye- PERRL, EOMI ENT- normal exam, MMM. Neck- normal inspection, supple, no JVD Respiratory- CTAB, no wheezes rales rhonchi Cardiovascular- RRR, +S1, +S2 no MRG GI/Abdominal- normal bowel sounds, soft, no mass, no hsm Skin- warm, dry Extremities Exam- left knee dressing c/d/i. normal capillary refill, normal inspection Neurological Exam- alert, awake, oriented Psych- normal mood, normal affect Discharge Plan - Discharge Medications Prescriptions: Enoxaparin [Lovenox] 40 mg SC DAILY 7 Days #7 syr - Follow Up Plan Condition: GOOD Disposition: HOME/ ROUTINE Instructions: Preventing Falls in the Older Adult, How to Care for a Central Line Catheter, Total Knee Replacement (DC), Surgical Wound (DC), Peripherally- Inserted Central Catheter (DC), Enoxaparin, Going Home on Blood Thinners Additional Instructions: followup with Dr. Tyree Hunter, on December 02, 2017, at 1:30pm. [phone] Referrals: Tyree Hunter III, MD [Primary Care Provider] -
== END 2017-11-28 17:51 | disposition home or self-care (01) | DRG 561 ==
LOC: H.TCU 15:32
PROVIDERS: ADMIT Internal Medicine; ATTEND Internal Medicine
PROC: F08Z1FZ Dressing Techniques Treatment using Assistive, Adaptive, Supportive or Protective Equipment (ICD-10-PCS; principal; 2017-11-23)
PROC: F07Z8FZ Transfer Training Treatment using Assistive, Adaptive, Supportive or Protective Equipment (ICD-10-PCS; 2017-11-23)
PROC: F07Z9FZ Gait Training/Functional Ambulation Treatment using Assistive, Adaptive, Supportive or Protective Equipment (ICD-10-PCS; 2017-11-23)
PROC: F07L6FZ Therapeutic Exercise Treatment of Musculoskeletal System - Lower Back / Lower Extremity using Assistive, Adaptive, Supportive or Protective Equipment (ICD-10-PCS; 2017-11-23)
DX: Z47.1 Aftercare following joint replacement surgery (principal); E11.9 Type 2 diabetes mellitus without complications; Z87.891 Personal history of nicotine dependence; Z96.652 Presence of left artificial knee joint; Z88.6 Allergy status to analgesic agent

== ENCOUNTER 2017-11-28 11:13 | Day surgery (SDC) | payer BC ==
[2017-11-28 11:54] VITALS: O2SAT 97
[2017-11-28 11:55] VITALS: BMI 33.7
[2017-11-28] MEDS ORDERED: Lidocaine 1% Inj (20ml) ONE (12:53)
--- NOTE | 2017-11-28 13:53 | CP.SDSHP ---
Same Day Surgery H & P - History Proposed Procedure: PICC PLACMent Pre-Op Diagnosis: Knee infection - Allergies Allergies: Allergies aspirin Allergy (Verified 11/21/17 07:24) RASH - Physical Exam Vital Signs: Vital Signs 11/28/17 11/28/17 11:50 11:53 Temperature 98.4 F Pulse Rate 84 Respiratory 20 20 Rate Blood Pressure 105/45 L O2 Sat by Pulse 97 Oximetry Mental Status: Alert & Oriented x3 Neuro: WNL Lungs: WNL - Impression Impression: Pt with knee infection referred for picc placement. Plan single lumen picc left arm. Pt. Evaluated Today:Candidate for Anesthesia & Procedure: No Short Stay Discharge - Short Stay Discharge Admitting Diagnosis/Reason for Visit: INFECTED TKR Disposition: REHAB FACILITY/REHAB UNIT Referrals: Cameron Mondragon MD [Primary Care Provider] -
[2017-11-28 13:58] VITALS: RESP 18
--- NOTE | 2017-11-28 14:05 | PCM.SURG1 ---
Surgeon's Initial Post Op Note - Surgeon's Notes Surgeon: Fritz Lorenz MD Rn Shift Mgr: NONE Type of Anesthesia: Local Pre-Operative Diagnosis: Knee infection Operative Findings: US showed a patent left basilic vein Post-Operative Diagnosis: KNee infection Operation Performed: Single lumen picc placement left basilic vein, 50 cm. Tip is in the SVC. Specimen/Specimens Removed: None Estimated Blood Loss: EBL {In ML}: 2 Blood Products Given: N/A Drains Used: No Drains Post-Op Condition: Fair Date of Surgery/Procedure: 11/28/17 Time of Surgery/Procedure: 14:05
[2017-11-28 14:46] VITALS: BP 138/91; PULSE 95; TEMP 98.4
--- NOTE | 2017-11-29 09:25 | VASCULAR ---
PROCEDURE: Date of procedure: 11/28/2017 Procedure: 1. Placement of a left arm PICC with ultrasound and fluoroscopic guidance, CPT 26396 2. PICC tip confirmation with spot radiograph and is in the superior vena cava Medications: 1 percent lidocaine Total Fluoro time: 26.1 seconds Radiation: 4.98 MGy EBL: 3 cc HISTORY: Infection requiring long-term IV antibiotics TECHNIQUE: Following informed consent and procedure time-out, the patient placed supine on the interventional table and the left arm prepped and draped in the usual sterile fashion. Ultrasound showed a patent and compressible left basilic vein. After the skin was anesthetized with lidocaine, the basilic vein was accessed with micro micropuncture technique using ultrasound guidance. A guidewire was then advanced under fluoroscopic guidance into the superior vena cava. An image documenting ultrasound guidance for vascular access was permanently saved. The length of a single-lumen 4 Iranian PICC was trimmed to 50 cm and advanced through a peel-away sheath. The PICC was position with tip of PICC confirm a spot radiograph the superior vena cava. The PICC was secured to the patient's skin. The PICC was flushed. A biopatch and sterile dressing was applied. IMPRESSION: Placement of a single-lumen 4 Iranian PICC left basilic vein trimmed to 50 cm. The tip of the PICC is confirmed with spot radiograph and is in the superior vena cava.
== END 2017-11-28 14:45 ==
LOC: H.OPSURG 11:13
PROVIDERS: ATTEND Specialist
DX: T84.53XA Infection and inflammatory reaction due to internal right knee prosthesis, initial encounter (principal); Z45.2 Encounter for adjustment and management of vascular access device
CPT/HCPCS: 36569; 76937; 77001; 82948; A4310; C1751

== ENCOUNTER 2017-12-07 01:46 | Observation (INO) | payer BC ==
[2017-12-07 01:46] VITALS: BMI 33.7
[2017-12-07] MEDS ORDERED: Sodium Chloride 0.9% 1,000 ML IV STA (04:30)
[2017-12-07 04:43] LABS: BASO % 0.5 % (0.0-2.0); EOS # 0.1 K/uL (0.0-0.7); EOS % 5.2 % (0.0-4.0); HEMOGLOBIN 9.8 g/dL (12.0-18.0); LYMPH # 0.5 K/uL (1.0-4.3); LYMPH % 20.4 % (20.0-40.0); MEAN CELL VOLUME 85.7 fl (80.0-94.0); MEAN CORPUSCULAR HEMOGLOBIN 28.4 pg (27.0-31.0); MEAN CORPUSCULAR HGB CONC 33.2 g/dL (33.0-37.0); MEAN PLATELET VOLUME 7.2 fl (7.2-11.7); MONO # 0.2 K/uL (0.0-0.8); MONO % 8.8 % (0.0-10.0); NEUT # 1.4 K/uL (1.8-7.0); NEUT % 65.1 % (50.0-75.0); NRBC % 0.2 % (0.0-0.0); RBC 3.44 Mil/uL (4.40-5.90); RED CELL DISTRIBUTION WIDTH 15.1 % (11.5-14.5); WHITE BLOOD COUNT 2.2 K/uL (4.8-10.8)
--- NOTE | 2017-12-07 04:44 | ED PDOC ---
HPI: General Adult Time Seen by Provider: 12/07/17 02:05 Chief Complaint (Nursing): Fever Chief Complaint (Provider): Fever/Chills History Per: Patient History/Exam Limitations: no limitations Onset/Duration Of Symptoms: Hrs (earlier tonight) Current Symptoms Are (Timing): Still Present Recently: Hospitalized Additional Complaint(s): 62 year old male presents to ED with complaints of "feeling feverish" and chills since earlier tonight and has a past medical history of HTN and DM. Patient states he had his left knee replaced on 10/26/17 and that is subsequently became infected, causing the need for admission and rehab. Notes that he had a PICC line placed in his LUE and has been receiving Vancomycin since 11/22/17. Notes that the bolus was increased a few days ago. Reports that his last infusion was earlier tonight, and that he subsequently became very red and started shaking. PCP: Tyree Hunter III Past Medical History Reviewed: Historical Data, Nursing Documentation, Vital Signs Vital Signs: Last Vital Signs Temp 98.8 F 12/07/17 23:36 Pulse 91 H 12/07/17 23:36 Resp 20 12/07/17 23:36 BP 103/71 12/07/17 23:36 Pulse Ox 98 12/07/17 23:36 - Medical History PMH: Arthritis, Diabetes, HTN Denies: Chronic Kidney Disease - Surgical History Surgical History: Denies: No Surg Hx Other surgeries: left knee replacement - Family History Family History: States: Unknown Family Hx - Social History Current smoker - smoking cessation education provided: No Ex-Smoker (has not smoked in the last 12 months): Yes - Home Medications Home Medications: Ambulatory Orders Medication Instructions Recorded MetFORMIN [glucoPHAGE] 1,000 mg PO BID 10/26/17 SITagliptin [Januvia] 100 mg PO DAILY 10/26/17 Multivitamin [Daily Vitamin 1 tab PO DAILY 11/16/17 Formula] - Allergies Allergies/Adverse Reactions: Allergies Allergy/AdvReac Type Severity Reaction Status Date / Time aspirin Allergy RASH Verified 11/21/17 07:24 Review of Systems ROS Statement: Except As Marked, All Systems Reviewed And Found Negative Constitutional: Positive for: Fever (feels feverish), Chills, Other ("shaking") Physical Exam - Reviewed Nursing Documentation Reviewed: Yes Vital Signs Reviewed: Yes - Physical Exam Appears: Positive for: Non-toxic Skin: Positive for: Warm, Dry. Negative for: Normal Color (Erythema to the face and neck) Eye Exam: Positive for: Normal appearance, EOMI, PERRL Cardiovascular/Chest: Positive for: Regular Rate, Rhythm. Negative for: Murmur Respiratory: Positive for: Normal Breath Sounds. Negative for: Respiratory Distress Gastrointestinal/Abdominal: Positive for: Soft. Negative for: Tenderness Extremity: Positive for: Normal ROM. Negative for: Deformity Neurologic/Psych: Positive for: Alert, Oriented. Negative for: Motor/Sensory Deficits - Laboratory Results Result Diagrams: 12/07/17 11:24 12/07/17 04:30 - ECG O2 Sat by Pulse Oximetry: 98 (RA) Pulse Ox Interpretation: Normal Medical Decision Making Medical Decision Makin Initial impression: possible sepsis v Vancomycin reaction Initial plan: * Labs * BCx 0430 * VBG shock panel * NS IV * Acetaminophen 650mg PO * Re-eval 0539 Labs reviewed: WBC count - 2.2 (down from previous) Potassium - mild decrease Lactic acid - WNL 0545 Patient will be admitted to OBS MED/SURG. Dr. Hunter will see the patient on consult. Paged Dr. August and spoke to hospitalist foreign collection clerk (Dr. Gallegos) Scribe Attestation: Documented by Krissy Burr acting as a scribe for Leobardo Barrios MD. Scribe Attestation: All medical record entries made by the Scribe were at my direction and personally dictated by me. I have reviewed the chart and agree that the record accurately reflects my personal performance of the history, physical exam, medical decision making, and the department course for this patient. I have also personally directed, reviewed, and agree with the discharge instructions and disposition. Disposition - Clinical Impression Clinical Impression: Fever in adult, Status post revision of total replacement of left knee - Patient ED Disposition Is Patient to be Admitted: Yes Discussed With : Tyree Hunter III Counseled Patient/Family Regarding: Studies Performed - Disposition Disposition: Routine/Home Disposition Time: 05:45 Condition: IMPROVED - Pt Status Changed To: Hospital Disposition Of: Observation (OBS MED/SURG)
[2017-12-07 04:53] LABS: ALB/GLOB RATIO 1.1 (1.0-2.1); ALBUMIN 3.4 g/dL (3.5-5.0); ALT/SGPT 63 U/L (21-72); AST/SGOT 48 U/L (17-59); BLOOD UREA NITROGEN 12 mg/dl (9-20); CALCIUM 8.3 mg/dL (8.4-10.2); GFR AFRICAN-AMERICAN > 60; GFR NON-AFRICAN AMERICAN > 60
[2017-12-07 05:10] LABS: VENOUS BLOOD GAS BASE EXCESS 2.2 mmol/L (0.0-2.0); VENOUS BLOOD GAS PCO2 34 mmHg (40-60); VENOUS BLOOD GAS PO2 49 mm/Hg (30-55); VENOUS BLOOD PH 7.48 (7.32-7.43)
[2017-12-07 05:50] LABS: URINE BILIRUBIN NEGATIVE (NEGATIVE); URINE BLOOD SMALL (NEGATIVE); URINE CLARITY CLEAR (Clear); URINE COLOR STRAW (YELLOW); URINE GLUCOSE (UA) NEG (Normal); URINE LEUKOCYTE ESTERASE NEG Leu/uL (Negative); URINE PROTEIN NEGATIVE (NEGATIVE); URINE UROBILINOGEN 0.2-1.0 mg/dL (0.2-1.0)
--- NOTE | 2017-12-07 06:06 | CP.PCM.HP ---
History of Present Illness - History of Present Illness History of Present Illness: PCP: Not on staff Orthopedist: Tyree Hunter III, MD Chief Complaint: Fever/Chills HPI: 62 years old male with Hx of DM, Left TKR in 2016 with revision on and again on 11/21/17 and was discharged on 11/28/17 from TCU with IV Vancomycin Q12h. He comes with subjective fever and chills for 2-3 days after the Vancomycin was increased.No cough, nausea, vomits, chest pain, cough, diarrhea, dysuria nor urinary frequency. PMH: DM II; HTN; Arthritis PSH: Left TKR 2005 with Revision of Left TKR 10/26/17 and 11/21/17; Inguinal hernia repair X3; Varicose vein surgery bilateral; Skin graft right index finger SH: Former Smoker( Quit 5 years: Former Alcoholic use; No illegal drug use FH: State: No known family Hx Allergies: ASA Medication: Reviewed Present on Admission - Present on Admission Any Indicators Present on Admission: No History of DVT/PE: No History of Uncontrolled Diabetes: No Urinary Catheter: No Decubitus Ulcer Present: No Review of Systems - Constitutional Constitutional: Chills, Fever. absent: Anorexia, Headache, Lethargy - EENT Eyes: Requires Corrective Lenses. absent: Diplopia, Floaters, Sees Flashes Ears: absent: Decreased Hearing, Ear Discharge, Ear Pain, Tinnitus, Dizziness Nose/Mouth/Throat: absent: Epistaxis, Nasal Congestion, Nasal Discharge, Nasal Obstruction - Cardiovascular Cardiovascular: Dyspnea, Leg Edema. absent: Chest Pain Additional comments: Left leg edema - Respiratory Respiratory: absent: Cough, Wheezing, Stridor, Chest Congestion - Gastrointestinal Gastrointestinal: absent: Abdominal Pain, Constipation, Diarrhea, Nausea, Vomiting - Genitourinary Genitourinary: absent: Dysuria, Flank Pain, Hematuria, Urinary Frequency - Musculoskeletal Musculoskeletal: Arthralgias. absent: Back Pain, Muscle Weakness, Myalgias Additional comments: left knee and leg pain. - Integumentary Integumentary: absent: Pruritus, Rash Additional comments: Left knee with longitudinal post surgical scar with dry scab healing. - Neurological Neurological: absent: Confusion, Numbness, Focal Weakness, Weakness - Psychiatric Psychiatric: absent: Anxiety, Depression, Panic Attacks - Endocrine Endocrine: absent: Palpitations, Polydipsia, Polyphagia, Polyuria - Hematologic/Lymphatic Hematologic: absent: Easy Bleeding, Easy Bruising Past Patient History - Past Medical History & Family History Past Medical History?: Yes - Past Social History Smoking Status: Former Smoker Chewing Tobacco Use: No Cigar Use: No Alcohol: Other - CARDIAC Hx Hypertension: Yes - PULMONARY Hx Respiratory Disorders: No - NEUROLOGICAL Hx Neurological Disorder: No - HEENT Hx HEENT Problems: No - RENAL Hx Chronic Kidney Disease: No - ENDOCRINE/METABOLIC Hx Endocrine Disorders: Yes Hx Diabetes Mellitus Type 2: Yes - HEMATOLOGICAL/ONCOLOGICAL Hx Blood Disorders: No Hx Blood Transfusions: Yes Hx Blood Transfusion Reaction: No - INTEGUMENTARY Hx Dermatological Problems: No - MUSCULOSKELETAL/RHEUMATOLOGICAL Hx Arthritis: Yes - GASTROINTESTINAL Hx Gastrointestinal Disorders: No - GENITOURINARY/GYNECOLOGICAL Hx Genitourinary Disorders: No - PSYCHIATRIC Hx Substance Use: No - SURGICAL HISTORY Hx Surgeries: Yes Hx Herniorrhaphy: Yes (bilateral inguinal (3 surgeries)) Hx Orthopedic Surgery: Yes (left knee replacement 3.5 yr ago and revision ) Other/Comment: Hx varicose veins sx. Hx skin graft on right index finger - ANESTHESIA Hx Anesthesia: Yes Hx Anesthesia Reactions: No Hx Malignant Hyperthermia: No Meds Allergies/Adverse Reactions: Allergies Allergy/AdvReac Type Severity Reaction Status Date / Time aspirin Allergy RASH Verified 11/21/17 07:24 Physical Exam - Constitutional Appears: Well, Non-toxic - Eye Exam Eye Exam: EOMI, Normal appearance Pupil Exam: NORMAL ACCOMODATION, PERRL - ENT Exam ENT Exam: Mucous Membranes Moist, Normal Exam, Normal External Ear Exam - Neck Exam Neck exam: Positive for: Full Rom, Normal Inspection. Negative for: Lymphadenopathy, Tenderness - Respiratory Exam Respiratory Exam: Clear to Auscultation Bilateral. absent: Rales, Rhonchi, Wheezes - Cardiovascular Exam Cardiovascular Exam: REGULAR RHYTHM, RRR, +S1, +S2. absent: Gallop - GI/Abdominal Exam GI & Abdominal Exam: Normal Bowel Sounds, Soft. absent: Mass, Organomegaly - Rectal Exam Rectal Exam: Deferred - Extremities Exam Additional comments: Left knee with longitudinal post surgical healing scar with no sign of inflammation, Dry with scab and no drainage - Back Exam Back exam: NORMAL INSPECTION. absent: CVA tenderness (L), CVA tenderness (R) - Neurological Exam Neurological exam: Alert, CN II-XII Intact, Oriented x3, Reflexes Normal - Psychiatric Exam Psychiatric exam: Normal Affect, Normal Mood - Skin Skin Exam: Dry, Intact, Normal Color, Warm Results - Vital Signs Recent Vital Signs: Last Vital Signs Temp 98.9 F 12/07/17 04:46 Pulse 98 H 12/07/17 04:46 Resp 18 12/07/17 04:46 BP 112/68 12/07/17 04:46 Pulse Ox 98 12/07/17 05:56 - Labs Result Diagrams: 12/07/17 04:30 12/07/17 04:30 Labs: Laboratory Results - last 24 hr 12/07/17 12/07/17 12/07/17 03:23 04:30 04:30 WBC 2.2 L D RBC 3.44 L Hgb 9.8 L Hct 29.5 L MCV 85.7 MCH 28.4 MCHC 33.2 RDW 15.1 H Plt Count 128 L D MPV 7.2 Neut % (Auto) 65.1 Lymph % (Auto) 20.4 Haakon % (Auto) 8.8 Eos % (Auto) 5.2 H Baso % (Auto) 0.5 Neut # (Auto) 1.4 L Lymph # (Auto) 0.5 L Haakon # (Auto) 0.2 Eos # (Auto) 0.1 Baso # (Auto) 0.0 pO2 VBG pH VBG pCO2 VBG HCO3 VBG Total CO2 VBG O2 Sat (Calc) VBG Base Excess VBG Potassium Glucose Lactate FiO2 Sodium 139 Potassium 3.3 L Chloride 98 Carbon Dioxide 27 Anion Gap 17 BUN 12 Creatinine 0.9 Est GFR ( Amer) > 60 Est GFR (Non-Af Amer) > 60 POC Glucose (mg/dL) 142 H Random Glucose 157 H Calcium 8.3 L Total Bilirubin 1.1 AST 48 ALT 63 Alkaline Phosphatase 30 L Total Protein 6.3 Albumin 3.4 L Globulin 3.0 Albumin/Globulin Ratio 1.1 Venous Blood Potassium 12/07/17 05:06 WBC RBC Hgb Hct MCV MCH MCHC RDW Plt Count MPV Neut % (Auto) Lymph % (Auto) Haakon % (Auto) Eos % (Auto) Baso % (Auto) Neut # (Auto) Lymph # (Auto) Haakon # (Auto) Eos # (Auto) Baso # (Auto) pO2 49 VBG pH 7.48 H VBG pCO2 34 L VBG HCO3 26.4 VBG Total CO2 26.3 VBG O2 Sat (Calc) 91.7 H VBG Base Excess 2.2 H VBG Potassium 3.2 L Glucose 158 H Lactate 0.9 FiO2 21.0 Sodium 134.0 Potassium Chloride 105.0 Carbon Dioxide Anion Gap BUN Creatinine Est GFR ( Amer) Est GFR (Non-Af Amer) POC Glucose (mg/dL) Random Glucose Calcium Total Bilirubin AST ALT Alkaline Phosphatase Total Protein Albumin Globulin Albumin/Globulin Ratio Venous Blood Potassium 3.2 L - Imaging and Cardiology Chest x-ray Status: Image reviewed by me Additional comment: No infiltrate X Ray Left knee Status: Image reviewed by me Additional comment: Left Knee prosthesis aligned, no visible abnormality. Assessment & Plan - Assessment and Plan (Free Text) Assessment: #. Left TKA s/p Revision #. Leukopenia wit Pancytopenia #. Anemia #. Hypokalemia #. DM II with Hyperglycemia Plan: 62 years old male with Hx of DM, Left TKR in 2016 with revision on 10/26/17 and again on 11/21/17 and was discharged on 11/28/17 from TCU with IV Vancomycin Q12h. He comes with subjective fever and chills for 2-3 days after the Vancomycin was increased.No cough, nausea, vomits, chest pain, cough, diarrhea, dysuria nor urinary frequency. #. Fever/Chills/ leukopenia r/o Infection probably secondary to Vancomycin adverse effect. - Consult Dr Zapata ID - Hold Vancomycin - Follow blood Culture #. Left TKA s/p Revision r/o Infection - Consult Dr Hunter orthopedist - Consult Dr Benny WANG #. Anemia - follow Hb #. Hypokalemia, repleted - follow electrolytes #. DM II with Hyperglycemia - Regular insulin sliding scale according to accucheck #. DVT Prophylaxis with Lovenox #. Code Status: Full - Date & Time Date: 12/07/17 Time: 06:05
[2017-12-07] MEDS ORDERED: Potassium Chloride 20 mEq ER Tab PO ONE ×2 (07:11→07:50)
--- NOTE | 2017-12-07 07:41 | CP.PCM.CON ---
History of Present Illness - History of Present Illness History of Present Illness: Patient is a 62 y/o male well known to Dr. Hunter's practice, who presented to the ER with complaints of fever and chills over which have been persistent over the last 2 days. He is 2 weeks status post L revision TKA and is receiving IV antibiotics through his PICC line for infected knee coverage. He states that the symptoms began following the increase in dosage of his Vancomycin over the past 4 doses. Currently, he has no complaints of knee pain or difficulty with ADL's in regards to the knee. He was recently seen in the office for orthopedic postop f/u without any concerns. Dr. Hunter was consulted for orthopedic consultation. He denies any CP/SOB/N/V/D/LOFTON/dysuria/melena. Review of Systems - Review of Systems All systems: reviewed and no additional remarkable complaints except Review of Systems: As per HPI Past Patient History - Past Medical History & Family History Past Medical History?: Yes Past Family History: Reviewed and not pertinent - Past Social History Smoking Status: Former Smoker Chewing Tobacco Use: No Cigar Use: No Alcohol: Other - CARDIAC Hx Hypertension: Yes - PULMONARY Hx Respiratory Disorders: No - NEUROLOGICAL Hx Neurological Disorder: No - HEENT Hx HEENT Problems: No - RENAL Hx Chronic Kidney Disease: No - ENDOCRINE/METABOLIC Hx Endocrine Disorders: Yes Hx Diabetes Mellitus Type 2: Yes - HEMATOLOGICAL/ONCOLOGICAL Hx Blood Disorders: No Hx Blood Transfusions: Yes Hx Blood Transfusion Reaction: No - INTEGUMENTARY Hx Dermatological Problems: No - MUSCULOSKELETAL/RHEUMATOLOGICAL Hx Arthritis: Yes - GASTROINTESTINAL Hx Gastrointestinal Disorders: No - GENITOURINARY/GYNECOLOGICAL Hx Genitourinary Disorders: No - PSYCHIATRIC Hx Substance Use: No - SURGICAL HISTORY Hx Surgeries: Yes Hx Herniorrhaphy: Yes (bilateral inguinal (3 surgeries)) Hx Orthopedic Surgery: Yes (left knee replacement 3.5 yr ago and revision ) Other/Comment: Hx varicose veins sx. Hx skin graft on right index finger - ANESTHESIA Hx Anesthesia: Yes Hx Anesthesia Reactions: No Hx Malignant Hyperthermia: No Meds Allergies/Adverse Reactions: Allergies Allergy/AdvReac Type Severity Reaction Status Date / Time aspirin Allergy RASH Verified 11/21/17 07:24 - Medications Medications: Current Medications Acetaminophen (Tylenol 325mg Tab) 650 mg PO Q4 PRN PRN Reason: Fever >100.4 F Enoxaparin Sodium (Lovenox) 40 mg SC DAILY OSVALDO PRN Reason: Protocol Insulin Human Regular (Humulin R) 0 units SC ACHS OSVALDO PRN Reason: Protocol Metformin HCl (Glucophage) 1,000 mg PO BID OSVALDO Multivitamins/Minerals (Therapeutic-M Tab) 1 tab PO DAILY OSVALDO Sitagliptin Phosphate (Januvia) 100 mg PO DAILY OSVALDO Physical Exam - Constitutional Appears: No Acute Distress - Head Exam Head Exam: ATRAUMATIC - Eye Exam Eye Exam: EOMI, Normal appearance - ENT Exam ENT Exam: Mucous Membranes Moist - Respiratory Exam Respiratory Exam: NORMAL BREATHING PATTERN - Extremities Exam Additional comments: L knee: mild swelling consistent with recent surgery, no erythema/ecchymosis/ drainage, wound clean dry and intact with love. ROM 0-90 deg. Sensation intact SP/DP/TN. Motor intact EHL/FHL/TA/Gastroc/Hip flex. pedal pulses intact. Compartments soft/NT b/l - Neurological Exam Neurological exam: Alert, Oriented x3 - Psychiatric Exam Psychiatric exam: Normal Affect, Normal Mood - Skin Skin Exam: Normal Color Results - Vital Signs Recent Vital Signs: Last Vital Signs Temp 98.2 F 12/07/17 06:11 Pulse 90 12/07/17 06:11 Resp 18 12/07/17 06:11 BP 100/67 12/07/17 06:11 Pulse Ox 94 L 12/07/17 06:11 - Labs Result Diagrams: 12/07/17 04:30 12/07/17 04:30 Labs: Laboratory Results - last 24 hr 12/07/17 12/07/17 12/07/17 03:23 04:30 04:30 WBC 2.2 L D RBC 3.44 L Hgb 9.8 L Hct 29.5 L MCV 85.7 MCH 28.4 MCHC 33.2 RDW 15.1 H Plt Count 128 L D MPV 7.2 Neut % (Auto) 65.1 Lymph % (Auto) 20.4 Mcleod % (Auto) 8.8 Eos % (Auto) 5.2 H Baso % (Auto) 0.5 Neut # (Auto) 1.4 L Lymph # (Auto) 0.5 L Mcleod # (Auto) 0.2 Eos # (Auto) 0.1 Baso # (Auto) 0.0 pO2 VBG pH VBG pCO2 VBG HCO3 VBG Total CO2 VBG O2 Sat (Calc) VBG Base Excess VBG Potassium Glucose Lactate FiO2 Sodium 139 Potassium 3.3 L Chloride 98 Carbon Dioxide 27 Anion Gap 17 BUN 12 Creatinine 0.9 Est GFR ( Amer) > 60 Est GFR (Non-Af Amer) > 60 POC Glucose (mg/dL) 142 H Random Glucose 157 H Calcium 8.3 L Total Bilirubin 1.1 AST 48 ALT 63 Alkaline Phosphatase 30 L Total Protein 6.3 Albumin 3.4 L Globulin 3.0 Albumin/Globulin Ratio 1.1 Venous Blood Potassium Urine Color Urine Clarity Urine pH Ur Specific Sanford Urine Protein Urine Glucose (UA) Urine Ketones Urine Blood Urine Nitrate Urine Bilirubin Urine Urobilinogen Ur Leukocyte Esterase Urine RBC (Auto) Urine Microscopic WBC 12/07/17 12/07/17 05:06 05:40 WBC RBC Hgb Hct MCV MCH MCHC RDW Plt Count MPV Neut % (Auto) Lymph % (Auto) Mcleod % (Auto) Eos % (Auto) Baso % (Auto) Neut # (Auto) Lymph # (Auto) Mcleod # (Auto) Eos # (Auto) Baso # (Auto) pO2 49 VBG pH 7.48 H VBG pCO2 34 L VBG HCO3 26.4 VBG Total CO2 26.3 VBG O2 Sat (Calc) 91.7 H VBG Base Excess 2.2 H VBG Potassium 3.2 L Glucose 158 H Lactate 0.9 FiO2 21.0 Sodium 134.0 Potassium Chloride 105.0 Carbon Dioxide Anion Gap BUN Creatinine Est GFR ( Amer) Est GFR (Non-Af Amer) POC Glucose (mg/dL) Random Glucose Calcium Total Bilirubin AST ALT Alkaline Phosphatase Total Protein Albumin Globulin Albumin/Globulin Ratio Venous Blood Potassium 3.2 L Urine Color Straw Urine Clarity Clear Urine pH 6.0 Ur Specific Sanford 1.005 Urine Protein Negative Urine Glucose (UA) Neg Urine Ketones Negative Urine Blood Small Urine Nitrate Negative Urine Bilirubin Negative Urine Urobilinogen 0.2-1.0 Ur Leukocyte Esterase Neg Urine RBC (Auto) < 1 Urine Microscopic WBC < 1 - Imaging and Cardiology X Ray Left knee Status: Image reviewed by me (AP/ Lateral/ sunrise view of the left knee reveals a well aligned total knee prosthesis with no evidence of loosening of the femoral or tibial components) Assessment & Plan (1) Status post revision of total replacement of left knee Assessment and Plan: Patient is 2 weeks s/p L revision TKA with complaints of fevers and chills -care as per medicine -PT/OT WBAT -CT scan of L knee -will follow -Case and plan discussed in agreement with Dr. Hunter Status: Acute
[2017-12-07] MEDS: Insulin Regular 100 units/ml SC SCH ×4 (08:24→22:00)
--- NOTE | 2017-12-07 10:03 | RAD ---
HISTORY: FEVER COMPARISON: No prior. TECHNIQUE: Chest PA and lateral FINDINGS: LUNGS: Left basilar atelectasis. No active pulmonary disease. PLEURA: No significant pleural effusion identified. No pneumothorax apparent. CARDIOVASCULAR: Normal. OSSEOUS STRUCTURES: Mild degenerative changes. VISUALIZED UPPER ABDOMEN: Normal. OTHER FINDINGS: Left upper extremity PICC with catheter tip at the junction of left brachiocephalic vein and SVC. IMPRESSION: No active disease.
--- NOTE | 2017-12-07 10:05 | RAD ---
PROCEDURE: Left Knee Radiographs. HISTORY: Pain. COMPARISON: Left knee radiographs dated 11/21/2017. FINDINGS: BONES: Prior total left knee arthroplasty. No periprosthetic lucency. JOINTS: Normal. No osteoarthritis. JOINT EFFUSION: Small joint effusion question. OTHER FINDINGS: Soft tissue swelling seen anteriorly. IMPRESSION: Prior total left knee arthroplasty. Nonspecific soft tissue swelling and questionable joint effusion. No periprosthetic lucency to suggest component loosening or fracture.
--- NOTE | 2017-12-07 10:12 | CT ---
PROCEDURE: LEFT KNEE CT WITHOUT CONTRAST HISTORY: s/p left knee revision TKA COMPARISON: Left knee radiographs 11/21/2017 and left knee post arthrogram radiographs 10/26/2017. TECHNIQUE: A volumetric CT acquisition through the left knee was performed without intravenous contrast with reformatted datasets provided sagittal axial coronal planes. Contrast Dose: NONE Radiation dose:Total exam DLP = 380.10 mGy-cm. This CT exam was performed using one or more of the following dose reduction techniques: Automated exposure control, adjustment of the mA and/or kV according to patient size, and/or use of iterative reconstruction technique. FINDINGS: Best seen on the coronal reformatted data sat is lucency surrounding the medial portion of the inferior margins of the tibial prosthetic component in this patient who is status post total knee replacement. Findings suggest an element of loosening or potential infection. No similar undermining is appreciated along the stem of the tibial component or the lateral tibial plateau segment. The femoral component appears unremarkable as imaged. Note, artifacts from replacement hardware obscure the evaluation in general. No fracture, subluxation or dislocation is identified in density through the region of suprapatellar bursa suggests a AD moderate effusion with prepatellar fluid appear relatively prominent as well. Subcutaneous fatty reticular markings are increased suggesting cellulitis. No emphysematous changes are seen throughout the examination grossly. As imaged, the popliteal fossa appears unremarkable. IMPRESSION: Findings suspicious for loosening or potential infection deep to the medial margins of the medial plateau segment of the tibial prosthesis status post left knee total joint arthroplasty. Unremarkable femoral component. Moderate suprapatellar bursa effusion and prominent prepatellar fluid collection as well as knee dermatitis pattern. Further clinical correlation is recommended.
[2017-12-07] MEDS: Multivitamin With Minerals Tab PO SCH (11:19)
[2017-12-07] MEDS: Enoxaparin 40 mg Syringe SC SCH (11:20)
[2017-12-07 12:31] LABS: BASO % 0.2 % (0.0-2.0); EOS # 0.1 K/uL (0.0-0.7); EOS % 6.6 % (0.0-4.0); HEMOGLOBIN 9.9 g/dL (12.0-18.0); LYMPH # 0.7 K/uL (1.0-4.3); LYMPH % 35.9 % (20.0-40.0); MEAN CELL VOLUME 84.6 fl (80.0-94.0); MEAN CORPUSCULAR HEMOGLOBIN 29.2 pg (27.0-31.0); MEAN CORPUSCULAR HGB CONC 34.5 g/dL (33.0-37.0); MEAN PLATELET VOLUME 7.3 fl (7.2-11.7); MONO # 0.3 K/uL (0.0-0.8); MONO % 14.7 % (0.0-10.0); NEUT # 0.8 K/uL (1.8-7.0); NEUT % 42.6 % (50.0-75.0); NRBC % 0.3 % (0.0-0.0); RBC 3.39 Mil/uL (4.40-5.90); RED CELL DISTRIBUTION WIDTH 15.2 % (11.5-14.5)
[2017-12-07 12:39] LABS: WHITE BLOOD COUNT 1.9 K/uL (4.8-10.8)
--- NOTE | 2017-12-07 13:03 | CP.PCM.PN ---
Subjective - Date & Time of Evaluation Date of Evaluation: 12/07/17 Time of Evaluation: 12:38 - Subjective Subjective: I D(INITIAL CONSULT) NOTE PATIENT C INFECTED TKR WAS ON VANCOMYCIN 1.250GM IVPB Q12H I HAD RECENTLY INCREASED DOSE BECAUSE OF LOW TROUGHS BUT EITHER HE HAD A DRUG REACTION AND/OR WAS GIVEN TOO QUICKLY(causing redness/flushing) WBC IS 2.2/1.9 PLATELETS ARE 128/120 RENAL FUNCTION STABLE HAVE STARTED DAPTOMYCIN Objective - Vital Signs/Intake and Output Vital Signs (last 24 hours): Temp Pulse Resp BP Pulse Ox 98.2 F 90 18 100/67 94 L 12/07/17 06:11 12/07/17 06:11 12/07/17 06:11 12/07/17 06:11 12/07/17 06:11 - Medications Medications: Current Medications Acetaminophen (Tylenol 325mg Tab) 650 mg PO Q4 PRN PRN Reason: Fever >100.4 F Enoxaparin Sodium (Lovenox) 40 mg SC DAILY OSVALDO PRN Reason: Protocol Last Admin: 12/07/17 11:20 Dose: 40 mg Daptomycin 500 mg/ Sodium (Chloride) 100 mls @ 100 mls/hr IV Q24H OSVALDO PRN Reason: Protocol Stop: 12/12/17 12:01 Insulin Human Regular (Humulin R) 0 units SC ACHS OSVALDO PRN Reason: Protocol Last Admin: 12/07/17 08:24 Dose: Not Given Metformin HCl (Glucophage) 1,000 mg PO BID [facility] Last Admin: 12/07/17 11:19 Dose: 1,000 mg Multivitamins/Minerals (Therapeutic-M Tab) 1 tab PO DAILY OSVALDO Last Admin: 12/07/17 11:19 Dose: 1 tab Sitagliptin Phosphate (Januvia) 100 mg PO DAILY [facility] Last Admin: 12/07/17 11:19 Dose: 100 mg - Labs Labs: 12/07/17 04:30 12/07/17 04:30
[2017-12-07] MEDS: DAPTOmycin 500 MG in Sodium Chloride 0.9% 100 ML IV SCH (14:00)
[2017-12-08 05:35] LABS: BASO % 0.3 % (0.0-2.0); EOS # 0.2 K/uL (0.0-0.7); EOS % 5.8 % (0.0-4.0); HEMOGLOBIN 9.7 g/dL (12.0-18.0); LYMPH % 39.5 % (20.0-40.0); MEAN CELL VOLUME 85.5 fl (80.0-94.0); MEAN CORPUSCULAR HEMOGLOBIN 28.7 pg (27.0-31.0); MEAN CORPUSCULAR HGB CONC 33.6 g/dL (33.0-37.0); MEAN PLATELET VOLUME 7.6 fl (7.2-11.7); MONO # 0.2 K/uL (0.0-0.8); MONO % 9.4 % (0.0-10.0); NEUT # 1.2 K/uL (1.8-7.0); NRBC % 0.2 % (0.0-0.0); RBC 3.39 Mil/uL (4.40-5.90); RED CELL DISTRIBUTION WIDTH 15.1 % (11.5-14.5); WHITE BLOOD COUNT 2.6 K/uL (4.8-10.8)
[2017-12-08 05:56] LABS: ALB/GLOB RATIO 1.1 (1.0-2.1); ALBUMIN 3.3 g/dL (3.5-5.0); ALT/SGPT 67 U/L (21-72); AST/SGOT 56 U/L (17-59); BLOOD UREA NITROGEN 13 mg/dl (9-20); CALCIUM 8.4 mg/dL (8.4-10.2); GFR AFRICAN-AMERICAN > 60; GFR NON-AFRICAN AMERICAN > 60
[2017-12-08] MEDS: Insulin Regular 100 units/ml SC SCH ×2 (06:52→12:24)
[2017-12-08 07:31] VITALS: BP 108/74; PULSE 77; RESP 19; TEMP 98.2; O2SAT 95
[2017-12-08] MEDS: Multivitamin With Minerals Tab PO SCH (09:09)
[2017-12-08] MEDS: Enoxaparin 40 mg Syringe SC SCH (09:09)
[2017-12-08 09:18] LABS: BASO % 0.6 % (0.0-2.0); EOS # 0.2 K/uL (0.0-0.7); EOS % 6.4 % (0.0-4.0); HEMOGLOBIN 10.3 g/dL (12.0-18.0); LYMPH % 37.6 % (20.0-40.0); MEAN CELL VOLUME 85.3 fl (80.0-94.0); MEAN CORPUSCULAR HEMOGLOBIN 28.9 pg (27.0-31.0); MEAN CORPUSCULAR HGB CONC 33.9 g/dL (33.0-37.0); MEAN PLATELET VOLUME 7.6 fl (7.2-11.7); MONO # 0.2 K/uL (0.0-0.8); MONO % 8.6 % (0.0-10.0); NEUT # 1.3 K/uL (1.8-7.0); NEUT % 46.8 % (50.0-75.0); NRBC % 0.1 % (0.0-0.0); RBC 3.56 Mil/uL (4.40-5.90); RED CELL DISTRIBUTION WIDTH 15.1 % (11.5-14.5); WHITE BLOOD COUNT 2.7 K/uL (4.8-10.8)
[2017-12-08] MEDS ORDERED: Potassium Chloride 20 mEq ER Tab PO ONE (10:44)
--- NOTE | 2017-12-08 11:31 | CP.PCM.PN ---
Subjective - Date & Time of Evaluation Date of Evaluation: 12/08/17 Time of Evaluation: 11:31 - Subjective Subjective: Patient seen and examined at bedside comfortable. No complaints of pain. Complaints of warmth and chills have resolved following change of abx. No new complaints. Objective - Vital Signs/Intake and Output Vital Signs (last 24 hours): Temp Pulse Resp BP Pulse Ox 98.2 F 77 19 108/74 95 12/08/17 07:30 12/08/17 07:30 12/08/17 07:30 12/08/17 07:30 12/08/17 07:30 - Medications Medications: Current Medications Acetaminophen (Tylenol 325mg Tab) 650 mg PO Q4 PRN PRN Reason: Fever >100.4 F Enoxaparin Sodium (Lovenox) 40 mg SC DAILY OSVALDO PRN Reason: Protocol Last Admin: 12/08/17 09:09 Dose: 40 mg Daptomycin 500 mg/ Sodium (Chloride) 100 mls @ 100 mls/hr IV Q24H OSVALDO PRN Reason: Protocol Stop: 12/12/17 12:01 Last Admin: 12/07/17 14:00 Dose: 100 mls/hr Insulin Human Regular (Humulin R) 0 units SC ACHS OSVALDO PRN Reason: Protocol Last Admin: 12/08/17 06:52 Dose: Not Given Metformin HCl (Glucophage) 1,000 mg PO BID [facility] Last Admin: 12/08/17 09:10 Dose: 1,000 mg Multivitamins/Minerals (Therapeutic-M Tab) 1 tab PO DAILY [facility] Last Admin: 12/08/17 09:09 Dose: 1 tab Sitagliptin Phosphate (Januvia) 100 mg PO DAILY [facility] Last Admin: 12/08/17 09:09 Dose: 100 mg - Labs Labs: 12/08/17 09:02 12/08/17 04:40 - Extremities Exam Additional comments: L knee: mild swelling consistent with recent surgery, no erythema/ecchymosis/ drainage, wound clean dry and intact with love. ROM 0-90 deg. Sensation intact SP/DP/TN. Motor intact EHL/FHL/TA/Gastroc/Hip flex. pedal pulses intact. Compartments soft/NT b/l Assessment and Plan (1) Status post revision of total replacement of left knee Assessment & Plan: Patient is 2 weeks s/p L revision TKA with complaints of fevers and chills -care as per medicine -PT/OT WBAT -CT scan of L knee reveals no interval changes from his postop films from . The prosthesis is well aligned with no loosening of the femoral or tibial components. Respectfully disagree with report. -clear to D/c to home from ortho s/p -Case and plan discussed in agreement with Dr. Hunter Status: Acute
[2017-12-08] MEDS: DAPTOmycin 500 MG in Sodium Chloride 0.9% 100 ML IV SCH (12:22)
[2017-12-08 13:12] LABS: HEPATITIS B SURFACE AG Negative (NEGATIVE)
[2017-12-08 13:17] LABS: HEPATITIS A IGM NEGATIVE (NEGATIVE); HEPATITIS B CORE AB NEGATIVE (NEGATIVE)
[2017-12-08 13:29] LABS: HEPATITIS C ANTIBODY NEGATIVE (NEGATIVE)
[2017-12-08 13:46] LABS: FOLATE > 20.0 ng/mL
--- NOTE | 2017-12-08 13:56 | CP.PCM.DIS ---
Provider - Provider Date of Admission: 12/07/17 05:48 Attending physician: Osvaldo Gallegos Consults: ID consult ortho consult hematology consult Time Spent in preparation of Discharge (in minutes): 20 Hospital Course - Lab Results Lab Results: Micro Results 12/07/17 05:40 Urine,Clean Catch Urine Culture - Final No Growth (<1,000 CFU/ML) 12/07/17 04:50 Blood-Venous Blood Culture - Preliminary NO GROWTH AFTER 24 HOURS 12/07/17 04:30 Blood-Venous Blood Culture - Preliminary NO GROWTH AFTER 24 HOURS Most Recent Lab Values WBC 2.7 K/uL (4.8-10.8) L 12/08/17 09:02 RBC 3.56 Mil/uL (4.40-5.90) L 12/08/17 09:02 Hgb 10.3 g/dL (12.0-18.0) L 12/08/17 09:02 Hct 30.4 % (35.0-51.0) L 12/08/17 09:02 MCV 85.3 fl (80.0-94.0) 12/08/17 09:02 MCH 28.9 pg (27.0-31.0) 12/08/17 09:02 MCHC 33.9 g/dL (33.0-37.0) 12/08/17 09:02 RDW 15.1 % (11.5-14.5) H 12/08/17 09:02 Plt Count 135 K/uL (130-400) 12/08/17 09:02 MPV 7.6 fl (7.2-11.7) 12/08/17 09:02 Neut % (Auto) 46.8 % (50.0-75.0) L 12/08/17 09:02 Lymph % (Auto) 37.6 % (20.0-40.0) 12/08/17 09:02 [place] % (Auto) 8.6 % (0.0-10.0) 12/08/17 09:02 Eos % (Auto) 6.4 % (0.0-4.0) H 12/08/17 09:02 Baso % (Auto) 0.6 % (0.0-2.0) 12/08/17 09:02 Neut # (Auto) 1.3 K/uL (1.8-7.0) L 12/08/17 09:02 Lymph # (Auto) 1.0 K/uL (1.0-4.3) 12/08/17 09:02 [place] # (Auto) 0.2 K/uL (0.0-0.8) 12/08/17 09:02 Eos # (Auto) 0.2 K/uL (0.0-0.7) 12/08/17 09:02 Baso # (Auto) 0.0 K/uL (0.0-0.2) 12/08/17 09:02 Retic Count 2.1 % (0.5-1.5) H 12/08/17 04:50 pO2 49 mm/Hg (30-55) 12/07/17 05:06 VBG pH 7.48 (7.32-7.43) H 12/07/17 05:06 VBG pCO2 34 mmHg (40-60) L 12/07/17 05:06 VBG HCO3 26.4 mmol/L 12/07/17 05:06 VBG Total CO2 26.3 mmol/L (22-28) 12/07/17 05:06 VBG O2 Sat (Calc) 91.7 % (40-65) H 12/07/17 05:06 VBG Base Excess 2.2 mmol/L (0.0-2.0) H 12/07/17 05:06 VBG Potassium 3.2 mmol/L (3.6-5.2) L 12/07/17 05:06 Sodium 134.0 mmol/L (132-148) 12/07/17 05:06 Chloride 105.0 mmol/L (98-107) 12/07/17 05:06 Glucose 158 mg/dL (75-110) H 12/07/17 05:06 Lactate 0.9 mmol/L (0.7-2.1) 12/07/17 05:06 FiO2 21.0 % 12/07/17 05:06 Sodium 144 mmol/l (132-148) 12/08/17 04:40 Potassium 3.5 MMOL/L (3.6-5.0) L 12/08/17 04:40 Chloride 102 mmol/L (98-107) 12/08/17 04:40 Carbon Dioxide 26 mmol/L (22-30) 12/08/17 04:40 Anion Gap 20 (10-20) 12/08/17 04:40 BUN 13 mg/dl (9-20) 12/08/17 04:40 Creatinine 0.8 mg/dl (0.8-1.5) 12/08/17 04:40 Est GFR ( Amer) > 60 12/08/17 04:40 Est GFR (Non-Af Amer) > 60 12/08/17 04:40 POC Glucose (mg/dL) 135 mg/dL (65-110) H 12/08/17 10:54 Random Glucose 116 mg/dL (75-110) H 12/08/17 04:40 Calcium 8.4 mg/dL (8.4-10.2) 12/08/17 04:40 Ferritin 300.0 ng/Ml (17.9-464) 12/08/17 04:40 Total Bilirubin 0.9 mg/dl (0.2-1.3) 12/08/17 04:40 AST 56 U/L (17-59) 12/08/17 04:40 ALT 67 U/L (21-72) 12/08/17 04:40 Alkaline Phosphatase 30 U/L (38-126) L 12/08/17 04:40 Total Creatine Kinase 87 U/L (55-170) 12/07/17 12:12 Total Protein 6.3 G/DL (6.3-8.2) 12/08/17 04:40 Albumin 3.3 g/dL (3.5-5.0) L 12/08/17 04:40 Globulin 3.0 gm/dL (2.2-3.9) 12/08/17 04:40 Albumin/Globulin Ratio 1.1 (1.0-2.1) 12/08/17 04:40 Vitamin B12 205 pg/mL (239-931) L 12/08/17 04:40 Folate > 20.0 ng/mL 12/08/17 04:40 Venous Blood Potassium 3.2 mmol/L (3.6-5.2) L 12/07/17 05:06 Urine Color Straw (YELLOW) 12/07/17 05:40 Urine Clarity Clear (Clear) 12/07/17 05:40 Urine pH 6.0 (5.0-8.0) 12/07/17 05:40 Ur Specific [place] 1.005 (1.003-1.030) 12/07/17 05:40 Urine Protein Negative mg/dL (NEGATIVE) 12/07/17 05:40 Urine Glucose (UA) Neg mg/dL (Normal) 12/07/17 05:40 Urine Ketones Negative mg/dL (NEGATIVE) 12/07/17 05:40 Urine Blood Small (NEGATIVE) 12/07/17 05:40 Urine Nitrate Negative (NEGATIVE) 12/07/17 05:40 Urine Bilirubin Negative (NEGATIVE) 12/07/17 05:40 Urine Urobilinogen 0.2-1.0 mg/dL (0.2-1.0) 12/07/17 05:40 Ur Leukocyte Esterase Neg Henrik/uL (Negative) 12/07/17 05:40 Urine RBC (Auto) < 1 /hpf (0-3) 12/07/17 05:40 Urine Microscopic WBC < 1 /hpf (0-5) 12/07/17 05:40 Hepatitis A IgM Ab Negative (NEGATIVE) 12/08/17 04:40 Hep Bs Antigen Negative (NEGATIVE) 12/08/17 04:40 Hep B Core IgM Ab Negative (NEGATIVE) 12/08/17 04:40 Hepatitis C Antibody Negative (NEGATIVE) 12/08/17 04:40 HIV 1&2 Antibody Screen Negative (NEGATIVE) 12/08/17 04:40 - Hospital Course Hospital Course: 62 years old male with Hx of DM, Left TKR in 2016 with revision on 10/26/17 and again on 11/21/17 ,was discharged on 11/28/17 from TCU with IV Vancomycin Q12h. He presented with subjective fever and chills for 2-3 days after the Vancomycin dose was increased .No cough, nausea, vomits, chest pain, cough, diarrhea, dysuria nor urinary frequency.His WBC noted to be 1.9 Patient was admitted for possible Vancomycin adverse drug reaction . ID wsa consulted and Vancomycin was discontinued and substituted with daptomycin 500 mg IV daily Pateint clinically improved , remained afebrile and his WBC count trending up to 2.7 today He feels well, denies any knee discomfort . Ortho as well was consulted for evaluation of the Left TKR.At present he is hemodynamically stabe will discharge him sheila e on IV Daptomycin for 2 more weeks' 1.Fever/Chills/ leukopenia most likely Vancomycin adverse effect. clinically improved , hemodynamically stable, afebrile WBXC trending up 2.7 Discontinue Vancomycin Id consulted started Daptomycin IV for 2 more weeks 2.Left TKR s/p Revision no signs of infection Ortho and ID consulted pain free Continue daptomycin for 2 more weeks 3.Anemia stable 4. Hypokalemia repleted 5. DM II with Hyperglycemia Regular insulin sliding scale according to accucheck Discharge Exam - Head Exam Head Exam: ATRAUMATIC, NORMAL INSPECTION, NORMOCEPHALIC - Eye Exam Eye Exam: EOMI, Normal appearance, PERRL Pupil Exam: NORMAL ACCOMODATION - ENT Exam ENT Exam: Mucous Membranes Moist, Normal Exam - Neck Exam Neck exam: Full Rom, Normal Inspection - Respiratory Exam Respiratory Exam: Clear to PA & Lateral, NORMAL BREATHING PATTERN. absent: Rhonchi, Wheezes, Respiratory Distress - Cardiovascular Exam Cardiovascular Exam: REGULAR RHYTHM, RRR, +S1, +S2. absent: JVD - GI/Abdominal Exam GI & Abdominal Exam: Normal Bowel Sounds, Soft. absent: Distended, Guarding, Rebound, Tenderness - Rectal Exam Rectal Exam: Deferred - Extremities Exam Extremities exam: normal capillary refill, normal inspection, pedal pulses present Additional comments: left knee surgical incision healing well - Back Exam Back exam: NORMAL INSPECTION - Neurological Exam Neurological exam: Alert, CN II-XII Intact, Oriented x3, Reflexes Normal - Psychiatric Exam Psychiatric exam: Normal Affect, Normal Mood - Skin Skin Exam: Dry, Intact, Normal Color, Warm Discharge Plan - Discharge Medications Prescriptions: DAPTOmycin [Cubicin] 500 mg IV DAILY #14 vial - Follow Up Plan Condition: IMPROVED Disposition: HOME/ ROUTINE Patient education suggested?: Yes Instructions: Total Knee Replacement (DC), Fever, Adult (DC), Peripherally- Inserted Central Catheter (DC) Additional Instructions: follow up with Dr. Hunter 7-10 days or as indicated by MD. Felix infusions [phone] Referrals: [place] MD [Staff Provider] - Tyree Hunter III, MD [Staff Provider] - Cameron Mondragon MD [Medical Doctor] -
== END 2017-12-08 14:04 | disposition home or self-care (01) ==
LOC: H.ER 01:46 → H.ERHOLD 05:48 → H.MEDSURG1 08:27
PROVIDERS: ADMIT Internal Medicine; ATTEND Internal Medicine
DX: R50.9 Fever, unspecified (principal); E87.6 Hypokalemia; E11.65 Type 2 diabetes mellitus with hyperglycemia; I10 Essential (primary) hypertension; Z87.891 Personal history of nicotine dependence; Z96.652 Presence of left artificial knee joint; Z88.6 Allergy status to analgesic agent; D72.819 Decreased white blood cell count, unspecified; D64.9 Anemia, unspecified; M19.90 Unspecified osteoarthritis, unspecified site
CPT/HCPCS: 36415; 71046; 73562; 73700; 80053; 80074; 81003; 82550; 82607; 82728; 82746; 82803; 82948; 84145; 85025; 85044; 86703; 87040; 87086; 96360; 99285; G0378; J0878; J1650; J7040

== ENCOUNTER 2018-02-06 05:55 | Inpatient (IN) | payer BC ==
[2018-02-06 05:55] VITALS: BMI 33.7
--- NOTE | 2018-02-06 07:00 | ED PDOC ---
Lower Extremity Pain/Injury Time Seen by Provider: 02/06/18 06:00 Chief Complaint (Nursing): Lower Extremity Problem/Injury Chief Complaint (Provider): Lower Extremity Problem/Injury History Per: Patient Onset/Duration Of Symptoms: Persistent (x1 month) Current Symptoms Are (Timing): Still Present Additional Complaint(s): 62 year old male with medical history of diabetes, arthritis and hypertension, presents to the emergency department with a complaint of persistent left knee pain and swelling associated with chills ongoing for 1 month. Patient reports left knee replacement 4 years ago with revisions made on 10/2017 and 11/2017. Past Medical History Reviewed: Historical Data, Nursing Documentation, Vital Signs Vital Signs: Last Vital Signs Temp 97.9 F 02/06/18 06:12 Pulse 102 H 02/06/18 06:12 Resp 18 02/06/18 06:12 BP 139/89 02/06/18 06:12 Pulse Ox 100 02/06/18 06:12 - Medical History PMH: Arthritis, Diabetes, HTN Denies: Chronic Kidney Disease - Surgical History Surgical History: No Surg Hx - Family History Family History: States: Unknown Family Hx - Social History Current smoker - smoking cessation education provided: No Ex-Smoker (has not smoked in the last 12 months): Yes Alcohol: None Drugs: Denies - Home Medications Home Medications: Ambulatory Orders Medication Instructions Recorded MetFORMIN [glucoPHAGE] 1,000 mg PO BID 10/26/17 SITagliptin [Januvia] 100 mg PO DAILY 10/26/17 Multivitamin [Daily Vitamin 1 tab PO DAILY 11/16/17 Formula] Linezolid [Zyvox] 600 mg PO BID 02/06/18 - Allergies Allergies/Adverse Reactions: Allergies Allergy/AdvReac Type Severity Reaction Status Date / Time aspirin Allergy RASH Verified 11/21/17 07:24 vancomycin AdvReac FEVER Verified 02/06/18 08:39 Review of Systems ROS Statement: Except As Marked, All Systems Reviewed And Found Negative Constitutional: Positive for: Chills Musculoskeletal: Positive for: Leg Pain (left knee with swelling) Physical Exam - Reviewed Nursing Documentation Reviewed: Yes Vital Signs Reviewed: Yes - Physical Exam Appears: Positive for: Well, Non-toxic, Uncomfortable Skin: Positive for: Normal Color, Warm, Dry Neck: Positive for: Normal Cardiovascular/Chest: Positive for: Regular Rate, Rhythm. Negative for: Murmur Respiratory: Positive for: Normal Breath Sounds. Negative for: Wheezing, Respiratory Distress Gastrointestinal/Abdominal: Positive for: Soft Extremity: Positive for: Tenderness (left knee incision site with erythema), Pedal Edema (left knee incision site), Capillary Refill (less than 2 s), Other ( limited ROM secondary to left knee pain and swelling). Negative for: Normal ROM , Calf Tenderness Neurologic/Psych: Positive for: Alert, Oriented. Negative for: Motor/Sensory Deficits - Laboratory Results Result Diagrams: 02/08/18 05:50 02/08/18 05:50 - ECG O2 Sat by Pulse Oximetry: 100 (RA) Pulse Ox Interpretation: Normal Medical Decision Making Medical Decision Making: Initial Impression: Left knee swelling Initial Plan: * Type and screen * EKG * CMP * CBC * PT Time: 0654 --Call made out to Dr. Hunter. Time: 07 --Patient endorsed to Dr. Jurgen Francisco. Pending ED work up and final disposition. Scribe Attestation: Documented by Bell Grey, acting as a scribe for Leobardo Barrios MD. Provider Scribe Attestation: All medical record entries made by the Scribe were at my direction and personally dictated by me. I have reviewed the chart and agree that the record accurately reflects my personal performance of the history, physical exam, medical decision making, and the department course for this patient. I have also personally directed, reviewed, and agree with the discharge instructions and disposition. Disposition - Clinical Impression Clinical Impression: Cellulitis - Patient ED Disposition Is Patient to be Admitted: Transfer of Care - Disposition Disposition: Transfer of Care Disposition Time: 07:00 Condition: STABLE Patient Signed Over To: Jurgen Francisco Handoff Comments: Pending ED work up and final disposition
--- NOTE | 2018-02-06 07:10 | ED PDOC ---
- Laboratory Results Result Diagrams: 02/06/18 07:08 02/06/18 07:08 - ECG O2 Sat by Pulse Oximetry: 100 (RA) Medical Decision Making Medical Decision Makin:00 -Patient endorsed to me by Dr. Barrios, pending work-up. Discussed with Dr. Hunter. States pt had procedure 2 months ago and has had redness swelling and fever. Recommends admission for IV antibiotics. Disposition - Clinical Impression Clinical Impression: Cellulitis - POA Present On Arrival: None - Disposition Disposition: Admitted as In-Patient Disposition Time: 08:22 Condition: FAIR Forms: [facility] (Macedonian)
[2018-02-06 07:22] LABS: BASO # 0.1 K/uL (0.0-0.2); BASO % 1.3 % (0.0-2.0); EOS # 0.1 K/uL (0.0-0.7); EOS % 1.1 % (0.0-4.0); HEMOGLOBIN 11.8 g/dL (12.0-18.0); LYMPH % 18.3 % (20.0-40.0); MEAN CELL VOLUME 83.8 fl (80.0-94.0); MEAN CORPUSCULAR HEMOGLOBIN 28.4 pg (27.0-31.0); MEAN CORPUSCULAR HGB CONC 33.9 g/dL (33.0-37.0); MEAN PLATELET VOLUME 6.3 fl (7.2-11.7); MONO # 0.4 K/uL (0.0-0.8); MONO % 6.7 % (0.0-10.0); NEUT # 4.1 K/uL (1.8-7.0); NEUT % 72.6 % (50.0-75.0); RBC 4.15 Mil/uL (4.40-5.90); WHITE BLOOD COUNT 5.7 K/uL (4.8-10.8)
[2018-02-06 07:28] LABS: ALB/GLOB RATIO 1.1 (1.0-2.1); ALBUMIN 4.1 g/dL (3.5-5.0); ALT/SGPT 39 U/L (21-72); AST/SGOT 26 U/L (17-59); BLOOD UREA NITROGEN 14 mg/dl (9-20); CALCIUM 9.2 mg/dL (8.4-10.2); GFR AFRICAN-AMERICAN > 60; GFR NON-AFRICAN AMERICAN > 60
[2018-02-06 07:29] LABS: INR 1.5 (0.9-1.2); PROTHROMBIN TIME 16.9 Seconds (9.8-13.1)
[2018-02-06 07:37] LABS: VENOUS BLOOD GAS BASE EXCESS 1.3 mmol/L (0.0-2.0); VENOUS BLOOD GAS PCO2 36 mmHg (40-60); VENOUS BLOOD GAS PO2 57 mm/Hg (30-55); VENOUS BLOOD PH 7.45 (7.32-7.43)
--- NOTE | 2018-02-06 08:22 | CP.PCM.HP ---
History of Present Illness - History of Present Illness History of Present Illness: 62 years old male with Hx of DM, Left TKR in 2016 with revision on 10/26/17 and 11/21/17 , treated for possible infected left TKR in the past with Vanco and daptomycin presented to ER with pain to left knee ,subjective fever and chills and swelling .As per patient he has been on IV and Po antibiotics since last revision 11/21/17 . No cough, nausea, vomiting chest pain, cough, diarrhea, dysuria nor urinary frequency.Denies any chest pain , SOB, palpitations, PND, orthopnea.Complains of nate to left knee especially with ambulation. PMHx: DM, arthritis PSH: left TKR, left knee aspiration, hernia repairs x 3 (2 inguinal hernias), varcoise veins keli, skin graft R index finger, s/p revision of left knee 10/20 and 11/20 MEDS: Metformin, Januvia ALL: Aspirin- rash, swells,Vano possible red man ? syndrome FH: denies SH: former smoker (quit 5 years ago), denies drinking or illicit drug use, lives at home with stairs. Code status; Full Present on Admission - Present on Admission Any Indicators Present on Admission: No Review of Systems - Review of Systems All systems: reviewed and no additional remarkable complaints except Past Patient History - Tetanus Immunizations Tetanus Immunization: Unknown - Past Medical History & Family History Past Medical History?: Yes Past Family History: Reviewed and not pertinent - Past Social History Alcohol: None Drugs: Denies - CARDIAC Hx Hypertension: Yes - PULMONARY Hx Respiratory Disorders: No - NEUROLOGICAL Hx Neurological Disorder: No - HEENT Hx HEENT Problems: No - RENAL Hx Chronic Kidney Disease: No - ENDOCRINE/METABOLIC Hx Endocrine Disorders: Yes Hx Diabetes Mellitus Type 2: Yes - HEMATOLOGICAL/ONCOLOGICAL Hx Blood Disorders: No Hx Blood Transfusions: Yes Hx Blood Transfusion Reaction: No - INTEGUMENTARY Hx Dermatological Problems: No - MUSCULOSKELETAL/RHEUMATOLOGICAL Hx Arthritis: Yes - GASTROINTESTINAL Hx Gastrointestinal Disorders: No - GENITOURINARY/GYNECOLOGICAL Hx Genitourinary Disorders: No - PSYCHIATRIC Hx Psychophysiologic Disorder: No Hx Emotional Abuse: No Hx Physical Abuse: No Hx Substance Use: No - SURGICAL HISTORY Hx Surgeries: Yes Hx Herniorrhaphy: Yes (bilateral inguinal (3 surgeries)) Hx Orthopedic Surgery: Yes (left knee replacement 3.5 yr ago and revision 2/19/ 18) Other/Comment: Hx varicose veins sx. Hx skin graft on right index finger - ANESTHESIA Hx Anesthesia: Yes Hx Anesthesia Reactions: No Hx Malignant Hyperthermia: No Meds Allergies/Adverse Reactions: Allergies Allergy/AdvReac Type Severity Reaction Status Date / Time aspirin Allergy RASH Verified 11/21/17 07:24 vancomycin AdvReac FEVER Verified 02/06/18 08:39 Physical Exam - Constitutional Appears: Non-toxic, No Acute Distress - Head Exam Head Exam: ATRAUMATIC, NORMAL INSPECTION, NORMOCEPHALIC - Eye Exam Eye Exam: EOMI, Normal appearance, PERRL Pupil Exam: NORMAL ACCOMODATION - ENT Exam ENT Exam: Mucous Membranes Moist, Normal Exam - Neck Exam Neck exam: Positive for: Full Rom, Normal Inspection - Respiratory Exam Respiratory Exam: Clear to Auscultation Bilateral, NORMAL BREATHING PATTERN. absent: Rales, Rhonchi, Wheezes - Cardiovascular Exam Cardiovascular Exam: REGULAR RHYTHM, RRR, +S1, +S2. absent: JVD - GI/Abdominal Exam GI & Abdominal Exam: Normal Bowel Sounds, Soft. absent: Distended, Guarding, Rebound, Tenderness - Rectal Exam Rectal Exam: Deferred - Extremities Exam Extremities exam: Positive for: full ROM, normal capillary refill, normal inspection, pedal pulses present. Negative for: calf tenderness, pedal edema Additional comments: left knee swelling with increased warm , and redness - Back Exam Back exam: NORMAL INSPECTION - Neurological Exam Neurological exam: Alert, CN II-XII Intact, Oriented x3, Reflexes Normal - Psychiatric Exam Psychiatric exam: Normal Affect, Normal Mood - Skin Skin Exam: Dry, Intact, Normal Color, Warm Results - Vital Signs Recent Vital Signs: Last Vital Signs Temp 97.9 F 02/06/18 06:12 Pulse 102 H 02/06/18 06:12 Resp 18 02/06/18 06:12 BP 139/89 02/06/18 06:12 Pulse Ox 100 02/06/18 07:13 - Labs Result Diagrams: 02/06/18 07:08 02/06/18 07:08 Labs: Laboratory Results - last 24 hr 02/06/18 02/06/18 02/06/18 07:08 07:08 07:08 WBC 5.7 D RBC 4.15 L Hgb 11.8 L Hct 34.7 L MCV 83.8 MCH 28.4 MCHC 33.9 RDW 18.0 H Plt Count 249 D MPV 6.3 L Neut % (Auto) 72.6 Lymph % (Auto) 18.3 L [place] % (Auto) 6.7 Eos % (Auto) 1.1 Baso % (Auto) 1.3 Neut # (Auto) 4.1 Lymph # (Auto) 1.0 [place] # (Auto) 0.4 Eos # (Auto) 0.1 Baso # (Auto) 0.1 PT 16.9 H INR 1.5 H pO2 VBG pH VBG pCO2 VBG HCO3 VBG Total CO2 VBG O2 Sat (Calc) VBG Base Excess VBG Potassium Glucose Lactate FiO2 Sodium 140 Potassium 4.1 Chloride 102 Carbon Dioxide 21 L Anion Gap 21 H BUN 14 Creatinine 0.9 Est GFR ( Amer) > 60 Est GFR (Non-Af Amer) > 60 Random Glucose 134 H Calcium 9.2 Total Bilirubin 1.3 AST 26 ALT 39 Alkaline Phosphatase 37 L D Total Protein 7.9 Albumin 4.1 Globulin 3.7 Albumin/Globulin Ratio 1.1 Venous Blood Potassium 02/06/18 07:31 WBC RBC Hgb Hct MCV MCH MCHC RDW Plt Count MPV Neut % (Auto) Lymph % (Auto) [place] % (Auto) Eos % (Auto) Baso % (Auto) Neut # (Auto) Lymph # (Auto) [place] # (Auto) Eos # (Auto) Baso # (Auto) PT INR pO2 57 H VBG pH 7.45 H VBG pCO2 36 L VBG HCO3 25.8 VBG Total CO2 26.1 VBG O2 Sat (Calc) 93.5 H VBG Base Excess 1.3 VBG Potassium 3.8 Glucose 139 H Lactate 1.2 FiO2 21.0 Sodium 136.0 Potassium Chloride 105.0 Carbon Dioxide Anion Gap BUN Creatinine Est GFR ( Amer) Est GFR (Non-Af Amer) Random Glucose Calcium Total Bilirubin AST ALT Alkaline Phosphatase Total Protein Albumin Globulin Albumin/Globulin Ratio Venous Blood Potassium 3.8 Assessment & Plan - Assessment and Plan (Free Text) Assessment: 62 years old male with Hx of DM, Left TKR in 2016 with revision on 10/26/17 and 11/21/17 , treated for infected left TKR for more than 6 weeks with antibiotics , presented with worsening left knee swelling , redness and pain Patient currently is afebrile , WC 5 K but knee is swollen , red and warm 1.Suspected infection of Left TKR admit patient to med/surg Ortho and ID consulted Pain management Send blood cx Started Clindamycin By ER ( patient had allergic reaction to vancomycin last admission )As per prior cultures only 1 specimen was reported positive for staph coag negative 2.Anemia stable 3. DM II with Hyperglycemia Regular insulin sliding scale , accuchecks diabetic diet on Metformin and januvia 4. DVt prophylaxis SCD and lovenox
[2018-02-06] MEDS ORDERED: Clindamycin 600mg/50ml D5W 600 MG/50 ML VIAL IVPB ONE (08:27)
[2018-02-06] MEDS ORDERED: Clindamycin 600mg/50ml NS 600 MG/50 ML BAG IVPB ONE (08:31)
[2018-02-06] MEDS ORDERED: methylPREDNISolone Depo 80 mg/ml Inj ONE (08:59)
[2018-02-06] MEDS ORDERED: Bacitracin Ointment 30 GM TUBE ONE (09:00)
[2018-02-06] MEDS ORDERED: Absorbable Gelatin Sponge Size 100 ONE (09:01)
[2018-02-06] MEDS ORDERED: Thrombin Topical 5,000 Int Units Spray Kit ONE (09:01)
[2018-02-06] MEDS ORDERED: Succinylcholine 200 mg/10 ml Inj IV ONE (11:42)
[2018-02-06] MEDS ORDERED: Neostigmine 1:1000 (1 mg/ml) Inj ONE (11:42)
[2018-02-06] MEDS ORDERED: Midazolam 2 MG/2 ML VIAL ONE (11:42)
[2018-02-06] MEDS ORDERED: Propofol 10 mg/ml Inj (20 ML) ONE ×2 (11:42→13:21)
[2018-02-06] MEDS ORDERED: Lidocaine 4% (Laryng-O-Jet) Kit MM ONE (11:42)
[2018-02-06] MEDS ORDERED: Rocuronium 10 mg/ml (5 ml) ONE ×3 (11:43→15:53)
[2018-02-06 11:57] LABS: INR 1.4 (0.9-1.2); PARTIAL THROMBOPLASTIN TIME 27.2 Seconds (25.6-37.1); PROTHROMBIN TIME 15.7 Seconds (9.8-13.1)
--- NOTE | 2018-02-06 12:21 | CP.PCM.CON ---
History of Present Illness - History of Present Illness History of Present Illness: Orthopedic consultation Dr. Hunter 62M complains of left knee pain and swelling that is worsening. Patient approx 5 years s/p pleft TKR. +Fever/chills Patient s/p aspiration/arthrogram 2017 that was negative for infection, and revision of left knee (poly and patellar components) 11/21/2017. All intraoperative cultures at that time were negative except 1 (+coag neg staph, likely contaminant) Since that time, the swelling and pain have been getting worse despite course of IV antibiotics Per Dr. Hunter, patient for removal of prosthesis and implantation of antibiotic spacer. Past Patient History - Past Medical History & Family History Past Medical History?: Yes - Past Social History Smoking Status: Former Smoker - CARDIAC Hx Cardiac Disorders: No - PULMONARY Hx Respiratory Disorders: No - NEUROLOGICAL Hx Neurological Disorder: No - HEENT Hx HEENT Problems: No - RENAL Hx Chronic Kidney Disease: No - ENDOCRINE/METABOLIC Hx Endocrine Disorders: Yes (DM) - HEMATOLOGICAL/ONCOLOGICAL Hx Blood Disorders: Yes - INTEGUMENTARY Hx Dermatological Problems: No - MUSCULOSKELETAL/RHEUMATOLOGICAL Hx Musculoskeletal Disorders: Yes - GASTROINTESTINAL Hx Gastrointestinal Disorders: No - GENITOURINARY/GYNECOLOGICAL Hx Genitourinary Disorders: No - PSYCHIATRIC Hx Psychophysiologic Disorder: Yes - SURGICAL HISTORY Hx Surgeries: Yes Hx Herniorrhaphy: Yes (bilateral inguinal (3 surgeries)) Hx Orthopedic Surgery: Yes (left knee replacement 3.5 yr ago and revision ) Other/Comment: Hx varicose veins sx. Hx skin graft on right index finger - ANESTHESIA Hx Anesthesia: Yes Hx Anesthesia Reactions: No Hx Malignant Hyperthermia: No Meds Allergies/Adverse Reactions: Allergies Allergy/AdvReac Type Severity Reaction Status Date / Time aspirin Allergy RASH Verified 11/21/17 07:24 vancomycin AdvReac FEVER Verified 02/06/18 08:39 Results - Vital Signs Recent Vital Signs: Last Vital Signs Temp 98 F 02/06/18 10:00 Pulse 86 02/06/18 10:00 Resp 16 02/06/18 10:00 BP 122/85 02/06/18 10:00 Pulse Ox 96 02/06/18 10:00 - Labs Result Diagrams: 02/06/18 07:08 02/06/18 07:08 Labs: Laboratory Results - last 24 hr 02/06/18 02/06/18 02/06/18 07:08 07:08 07:08 WBC 5.7 D RBC 4.15 L Hgb 11.8 L Hct 34.7 L MCV 83.8 MCH 28.4 MCHC 33.9 RDW 18.0 H Plt Count 249 D MPV 6.3 L Neut % (Auto) 72.6 Lymph % (Auto) 18.3 L [place] % (Auto) 6.7 Eos % (Auto) 1.1 Baso % (Auto) 1.3 Neut # (Auto) 4.1 Lymph # (Auto) 1.0 [place] # (Auto) 0.4 Eos # (Auto) 0.1 Baso # (Auto) 0.1 PT 16.9 H INR 1.5 H APTT pO2 VBG pH VBG pCO2 VBG HCO3 VBG Total CO2 VBG O2 Sat (Calc) VBG Base Excess VBG Potassium Glucose Lactate FiO2 Sodium 140 Potassium 4.1 Chloride 102 Carbon Dioxide 21 L Anion Gap 21 H BUN 14 Creatinine 0.9 Est GFR ( Amer) > 60 Est GFR (Non-Af Amer) > 60 Random Glucose 134 H Calcium 9.2 Total Bilirubin 1.3 AST 26 ALT 39 Alkaline Phosphatase 37 L D Total Protein 7.9 Albumin 4.1 Globulin 3.7 Albumin/Globulin Ratio 1.1 Venous Blood Potassium Blood Type Antibody Screen BBK History Checked 02/06/18 02/06/18 02/06/18 07:08 07:31 11:36 WBC RBC Hgb Hct MCV MCH MCHC RDW Plt Count MPV Neut % (Auto) Lymph % (Auto) [place] % (Auto) Eos % (Auto) Baso % (Auto) Neut # (Auto) Lymph # (Auto) [place] # (Auto) Eos # (Auto) Baso # (Auto) PT 15.7 H INR 1.4 H APTT 27.2 pO2 57 H VBG pH 7.45 H VBG pCO2 36 L VBG HCO3 25.8 VBG Total CO2 26.1 VBG O2 Sat (Calc) 93.5 H VBG Base Excess 1.3 VBG Potassium 3.8 Glucose 139 H Lactate 1.2 FiO2 21.0 Sodium 136.0 Potassium Chloride 105.0 Carbon Dioxide Anion Gap BUN Creatinine Est GFR ( Amer) Est GFR (Non-Af Amer) Random Glucose Calcium Total Bilirubin AST ALT Alkaline Phosphatase Total Protein Albumin Globulin Albumin/Globulin Ratio Venous Blood Potassium 3.8 Blood Type A POSITIVE Antibody Screen Negative BBK History Checked Patient has bt Assessment & Plan (1) Infection associated with internal left knee prosthesis Assessment and Plan: T&C explant NPO d/w Dr. Hunter, agrees with above Status: Acute
[2018-02-06] MEDS ORDERED: Ropivacaine 0.5% 30ML IV ONE ×2 (12:49→15:58)
[2018-02-06] MEDS ORDERED: EPINEPHrine 1 mg/ml (1:1000) Inj ONE (13:01)
[2018-02-06] MEDS ORDERED: Bupivacaine HCl 0.5% PF (30 ml) Inj ONE (13:01)
[2018-02-06] MEDS ORDERED: Lactated Ringer's 1,000 ML IV ONE ×3 (13:15→17:30)
[2018-02-06] MEDS ORDERED: Tranexamic Acid 1,000 MG in Sodium Chloride 0.9% 100 ML IVPB ONE (13:49)
[2018-02-06] MEDS ORDERED: Tranexamic Acid 100 mg/ml IV ONE (13:55)
[2018-02-06] MEDS ORDERED: ePHEDrine 50 mg/ml Inj ONE (14:04)
[2018-02-06] MEDS ORDERED: Sterile Water 10 ML IV ONE (14:05)
[2018-02-06 14:37] LABS: FLUID TYPE SYNOVIAL FLUID
[2018-02-06 14:53] LABS: FLUID TYPE SYNOVIAL FLUID
[2018-02-06 14:54] LABS: FLUID TYPE SYNOVIAL FLUID
[2018-02-06 15:34] LABS: SF GROSS APPEARANCE TURBID (CLEAR); SYNOVIAL FLUID COMMENT SLIGHTLY BLOODY
[2018-02-06 15:39] LABS: SYNOVIAL FLUID MONO/MACROPHAGE 2 % (0-0)
[2018-02-06 16:15] LABS: SF GROSS APPEARANCE TURBID (CLEAR); SYNOVIAL FLUID COMMENT MODERATELY BLOODY; SYNOVIAL FLUID MONO/MACROPHAGE 5 % (0-0)
[2018-02-06] MEDS ORDERED: Clindamycin 300 MG in Sodium Chloride 0.9% 50 ML IVPB SCH (18:15)
--- NOTE | 2018-02-06 18:44 | PCM.ANESB3 ---
Femoral Nerve Block - Femoral Nerve Block Date of Procedure: 02/06/18 Anesthesiologist: Lior Pre-Procedure Diagnosis: Left knee pain Post-Procedure Diagnosis: Same Procedure Performed: Femoral Nerve Block Left - Procedure Femoral Nerve Block: The procedure was explained to the patient that it is for the post-operative pain management. Consent was obtained after a thorough discussion with the patient regarding the benefits and possible complications of local anesthetic block of the femoral nerve at the inguinal crease area. The patient was brought to the operating room and standard monitors were applied. Time-out was held with the circulating nurse to confirm the correct surgery and the appropriate block. After applying oxygen by nasal cannula and administering IV Sedation, patient was placed in supine position with fully extended lower extremities and the __left groin exposed. The femoral artery was then carefully palpated. The ultrasound transducer was then applied to this area in the transverse plane and the femoral nerve was visualized lateral to the femoral artery and underneath the fascia iliaca. After thorough identification, the inguinal crease area was prepped with Betadine solution three times and 1 % Lidocaine was injected subcutaneously for topical anesthesia. At this point, a #22 gauge Stimuplex 2-inch needle was inserted immediately lateral to the femoral artery pulse at the inguinal crease and advanced perpendicularly. The needle was inserted to the ultrasound transducer in-plane towards the femoral nerve in a [id number] direction. Needle advancement was performed carefully under direct ultrasound visualization. Nerve stimulator was used and twitch of the quadriceps muscle was obtained at current of __0.4___ MA. After negative aspiration, __20___cc of __.5___% bupivacaine ____was injected. Under ultrasound guidance the local anesthetics were observed spreading below fascia iliaca and around the femoral nerve. The needle was removed intact and sterile dressing was applied. The patient had stable vital signs, was conscious and in no apparent distress. The patient tolerated the femoral nerve block well with stable vital signs and was prepared for subsequent surgery. At the end of the surgery, it was decided to supplement above block with fascia iliaca block to cover lateral femoral cutaneous distrubtion. Under ultrasound guidance, the border of fascia iliaca and ilacus muscle was identified. After sterile prep and drape, a 4-inch 20G needle was inserted lateral to the probe until the tip of the needle is in the compartment plane between the landmark above. After negative aspiration, approximately 2cc of .5% ropivacaine was injected, confirming the needle to be in the right plane. Then a total of 38cc of .5% ropivacaine was gradually injected, after negative aspiration for blood at 5cc intervals. The local anesthetics was observed spreading both medially and laterally. The needle was then removed. Patient tolerated procedure well.
--- NOTE | 2018-02-06 18:45 | PCM.ANESB2 ---
Popliteal Nerve Block - Popliteal Nerve Block Date of Procedure: 02/06/18 Anesthesiologist: Lior Pre-Procedure Diagnosis: Left knee pain Post-Procedure Diagnosis: Same Procedure Performed: Popliteal Nerve Block Left - Procedure Popliteal Nerve Block: This procedure was explained to the patient that it is for post-operative pain management. Consent was obtained after a thorough discussion with the patient regarding the benefits and possible complications of local anesthetic block of the sciatic nerve at the popliteal level. The patient was brought to the operating room and standard monitors are applied. Time-out was held with the circulating nurse to confirm the correct surgery and the appropriate block. After applying oxygen by nasal cannula and administering IV Sedation, patient's operative leg was gently raised and supported and the groove in between the biceps femoris and vastus lateralis muscles was carefully palpated. The skin approximately 8cm above the popliteal crease was then marked. The ultrasound transducer was then applied to the posterior thigh approximately 8cm above the popliteal crease in the transverse plane and the sciatic nerve before its division was visualized lateral to the popliteal artery and in between the bicep femoris and semimembranosus/semitendinosus muscles. After identification, the lateral portion of the thigh was prepped with Betadine solution three times and Lidocaine 1% was injected subcutaneously for topical anesthesia. At this point, a # 21 gauge Stimuplex insulated 4 inch needle was inserted into pre-marked area and advanced in a perpendicular direction. The needle was inserted above the ultrasound transducer in-plane towards the sciatic nerve in a [id number] direction. Needle advancement was performed carefully under direct ultrasound visualization. Nerve stimulator was used and dorsiflexion of the foot was elicited at a current of MA. After repeated negative aspiration, __20___cc of ___.5__ % ___bupivacaine was injected. Under ultrasound guidance the local anesthetics were observed surrounding sciatic nerve . The needle was removed intact and sterile dressing was applied. The patient tolerated the popliteal nerve block well with stable vital signs and was subsequently prepared for the surgery.
--- NOTE | 2018-02-06 18:46 | PCM.SURG1 ---
Surgeon's Initial Post Op Note - Surgeon's Notes Surgeon: Dale First Leveler: ELDON Gonzáles/ 2nd assist tamia Jimenez PA-C Type of Anesthesia: General Endo, Block Regional Anesthesia Administered By: DR Tinajero/DR Jarvis Pre-Operative Diagnosis: Septic L TKR Operative Findings: as above. marked hypertrophic synovitis Post-Operative Diagnosis: as above. posterior capsular contracture Operation Performed: Removal septic L TKR and insertion of abio impreganted spacer. tricompartmental synovitis. posterior capsular release. lateral patella release. excsiion skin/subcutaneous tissue/muscle Specimen/Specimens Removed: TKR cvomponent. synovium Estimated Blood Loss: EBL {In ML}: 300 Blood Products Given: N/A Drains Used: No Drains Post-Op Condition: Fair Date of Surgery/Procedure: 02/06/18 Time of Surgery/Procedure: 14:30 (time in room 1315)
[2018-02-06 18:58] LABS: HEMOGLOBIN 11.2 g/dL (12.0-18.0); MEAN CELL VOLUME 85.4 fl (80.0-94.0); MEAN CORPUSCULAR HEMOGLOBIN 27.7 pg (27.0-31.0); MEAN CORPUSCULAR HGB CONC 32.5 g/dL (33.0-37.0); RBC 4.05 Mil/uL (4.40-5.90); RED CELL DISTRIBUTION WIDTH 17.5 % (11.5-14.5); WHITE BLOOD COUNT 6.1 K/uL (4.8-10.8)
[2018-02-06] MEDS ORDERED: Acetaminophen IV IVPB PRN (18:59)
[2018-02-06] MEDS: Insulin Lispro (humaLOG) 100 Units/ml Inj SC SCH (21:42)
[2018-02-07] MEDS: ceFAZolin 2 GM in Sodium Chloride 0.9% 100 ML IVPB SCH ×2 (00:29→09:27)
[2018-02-07] MEDS: Clindamycin in NS 300 MG/50 ML BAG IVPB SCH ×2 (01:32→09:27)
[2018-02-07] MEDS: Sodium Chloride 0.9% 1,000 ML IV SCH ×4 (01:40→17:15)
[2018-02-07 06:37] LABS: BASO % 0.3 % (0.0-2.0); EOS # 0.1 K/uL (0.0-0.7); EOS % 1.1 % (0.0-4.0); LYMPH # 0.9 K/uL (1.0-4.3); LYMPH % 16.8 % (20.0-40.0); MEAN CELL VOLUME 84.8 fl (80.0-94.0); MEAN CORPUSCULAR HEMOGLOBIN 28.9 pg (27.0-31.0); MEAN CORPUSCULAR HGB CONC 34.1 g/dL (33.0-37.0); MEAN PLATELET VOLUME 6.5 fl (7.2-11.7); MONO # 0.4 K/uL (0.0-0.8); MONO % 7.6 % (0.0-10.0); NEUT # 4.1 K/uL (1.8-7.0); NEUT % 74.2 % (50.0-75.0); NRBC % 0.1 % (0.0-0.0); RBC 3.44 Mil/uL (4.40-5.90); RED CELL DISTRIBUTION WIDTH 17.2 % (11.5-14.5); WHITE BLOOD COUNT 5.5 K/uL (4.8-10.8)
[2018-02-07 06:54] LABS: BLOOD UREA NITROGEN 10 mg/dl (9-20); CALCIUM 8.1 mg/dL (8.4-10.2); GFR AFRICAN-AMERICAN > 60; GFR NON-AFRICAN AMERICAN > 60
[2018-02-07] MEDS: Insulin Lispro (humaLOG) 100 Units/ml Inj SC SCH ×4 (07:13→21:37)
--- NOTE | 2018-02-07 08:20 | CP.PCM.PN ---
Subjective - Date & Time of Evaluation Date of Evaluation: 02/07/18 Time of Evaluation: 08:18 - Subjective Subjective: Patient seen and examined at bedside comfortable. Pain well controlled with nerve block and tylenol. Yuni diet. No acute events overnight. Objective - Vital Signs/Intake and Output Vital Signs (last 24 hours): Temp Pulse Resp BP Pulse Ox 98.2 F 103 H 20 100/62 96 02/07/18 08:08 02/07/18 08:08 02/07/18 08:08 02/07/18 08:08 02/07/18 08:08 Intake and Output: 02/07/18 02/07/18 06:59 18:59 Intake Total 1350 Output Total 800 Balance 550 - Medications Medications: Current Medications Acetaminophen (Ofirmev) 1,000 mg IVPB ONCE PRN PRN Reason: Pain, severe (8-10) Stop: 02/08/18 19:00 Last Admin: 02/06/18 19:15 Dose: 1,000 mg Acetaminophen (Tylenol 325mg Tab) 650 mg PO Q4 PRN PRN Reason: Fever 101 degrees fahrenheit Acetaminophen (Tylenol 325mg Tab) 975 mg PO Q6 [facility] Last Admin: 02/07/18 03:52 Dose: 975 mg Docusate Sodium (Colace) 100 mg PO BID [facility] Docusate Sodium (Colace) 100 mg PO BID [facility] Enoxaparin Sodium (Lovenox) 40 mg SC DAILY [facility] PRN Reason: Protocol Enoxaparin Sodium (Lovenox) 40 mg SC DAILY [facility] PRN Reason: Protocol Sodium Chloride (Sodium Chloride 0.9%) 1,000 mls @ 100 mls/hr IV .Q10H [facility] Cefazolin Sodium 2 gm/ Sodium (Chloride) 100 mls @ 100 mls/hr IVPB Q8 [facility] PRN Reason: Protocol Stop: 02/07/18 09:59 Last Admin: 02/07/18 00:29 Dose: 100 mls/hr Sodium Chloride (Sodium Chloride 0.9%) 1,000 mls @ 100 mls/hr IV .Q10H [facility] Stop: 02/07/18 19:05 Last Admin: 02/07/18 06:36 Dose: Not Given Clindamycin in NS (Clindamycin 300 Mg/50 Ml-Ns) 300 mg in 50 mls @ 50 mls/hr IVPB Q8 [facility] PRN Reason: Protocol Last Admin: 02/07/18 01:32 Dose: 50 mls/hr Insulin Human Lispro (Humalog) 0 units SC ACHS [facility] PRN Reason: Protocol Last Admin: 02/06/18 21:42 Dose: Not Given Metformin HCl (Glucophage) 1,000 mg PO BID [facility] Ondansetron HCl (Zofran Inj) 4 mg IVP Q6 PRN PRN Reason: Nausea/Vomiting Ondansetron HCl (Zofran Inj) 4 mg IVP ONCE PRN PRN Reason: Nausea/Vomiting Pantoprazole Sodium (Protonix Ec Tab) 40 mg PO DAILY [facility] Sitagliptin Phosphate (Januvia) 100 mg PO DAILY [facility] - Labs Labs: 02/07/18 06:00 02/07/18 06:00 PT 15.7 Seconds (9.8-13.1) H 02/06/18 11:36 INR 1.4 (0.9-1.2) H 02/06/18 11:36 APTT 27.2 Seconds (25.6-37.1) 02/06/18 11:36 - Extremities Exam Additional comments: L knee: Knee immobilizer in place dressings CDI Prevena intact sensation intact SP/DP/TN motor intact EHL/FHL/TA/G pedal pulses intact comp soft NT Assessment and Plan (1) Infection associated with internal left knee prosthesis Assessment & Plan: POD# 1 s/p L knee removal of infected prosthesis and antibiotic spacer placement -pain control with tylenol, past drug abuser -Strict knee imm, keep in extension -PT/OT TTWB LLE -awaiting PICC insertion -operative cultures neg to date, abx as per ID -above d/w Dr. Hunter in agreement Status: Acute
[2018-02-07] MEDS ORDERED: Enoxaparin 40 mg Syringe SC SCH (09:00)
--- NOTE | 2018-02-07 09:09 | RAD ---
PROCEDURE: Left Knee Radiographs. HISTORY: Pain. COMPARISON: Left knee radiographs 12/07/2017. FINDINGS: BONES: Patient status post apparent revision of left total knee replacement with moderate postoperative changes identified in the within local soft tissues. Interval patellar, distal femoral and proximal tibial hardware is identified in position with numerous skin love identified anteriorly. No interval fracture, dislocation or subluxation. JOINTS: As per above. JOINT EFFUSION: Pneumo hemarthrosis appreciated postoperatively. OTHER FINDINGS: None. IMPRESSION: Status post revision of left total knee replacement with moderate postop changes as discussed above. .
--- NOTE | 2018-02-07 09:10 | RAD ---
PROCEDURE: CHEST RADIOGRAPH, 1 VIEW HISTORY: preop COMPARISON: Chest radiographs 12/07/2017. FINDINGS: LUNGS: No interval acute infiltrate bilaterally. Stable chronic fibrosis left base laterally with remaining lung johns clear. PLEURA: No pneumothorax or pleural fluid seen. CARDIOVASCULAR: Normal. OSSEOUS STRUCTURES: No significant abnormalities. VISUALIZED UPPER ABDOMEN: Normal. OTHER FINDINGS: None. IMPRESSION: No interval acute cardiopulmonary disease appreciated. Limited left basilar fibrotic changes unchanged.
[2018-02-07] MEDS: Enoxaparin 40 mg Syringe SC SCH (09:14)
[2018-02-07] MEDS: Pantoprazole 40 mg EC Tab PO SCH (09:25)
[2018-02-07] MEDS ORDERED: LIDOCAINE 2% 10ML 20 MG/ML VIAL IJ ONE (09:42)
--- NOTE | 2018-02-07 10:32 | PCM.SURG1 ---
Surgeon's Initial Post Op Note - Surgeon's Notes Surgeon: Arvin Jurado MD Flat Hammerer: None Type of Anesthesia: Local Pre-Operative Diagnosis: infection Operative Findings: patent left basilic vein. catheter length: 50 cm. catheter tip: cavoatrial junction Post-Operative Diagnosis: same Operation Performed: LUE PICC Insertion Specimen/Specimens Removed: n/a Estimated Blood Loss: EBL {In ML}: 0 Date of Surgery/Procedure: 02/07/18 Time of Surgery/Procedure: 10:15
--- NOTE | 2018-02-07 11:28 | CP.PCM.PN ---
Subjective - Date & Time of Evaluation Date of Evaluation: 02/07/18 Time of Evaluation: 11:00 - Subjective Subjective: Knee pain controlled No fever feels slightly weak denies CP no SOB no abd pain Wound Vac connected to left knee wound Objective - Vital Signs/Intake and Output Vital Signs (last 24 hours): Temp Pulse Resp BP Pulse Ox 99.6 F 111 H 18 122/60 98 02/07/18 10:18 02/07/18 10:18 02/07/18 10:18 02/07/18 10:18 02/07/18 10:18 Intake and Output: 02/07/18 02/07/18 06:59 18:59 Intake Total 1350 Output Total 800 Balance 550 - Medications Medications: Current Medications Acetaminophen (Ofirmev) 1,000 mg IVPB ONCE PRN PRN Reason: Pain, severe (8-10) Stop: 02/08/18 19:00 Last Admin: 02/06/18 19:15 Dose: 1,000 mg Acetaminophen (Tylenol 325mg Tab) 650 mg PO Q4 PRN PRN Reason: Fever 101 degrees fahrenheit Acetaminophen (Tylenol 325mg Tab) 975 mg PO Q6 [facility] Last Admin: 02/07/18 03:52 Dose: 975 mg Docusate Sodium (Colace) 100 mg PO BID [facility] Last Admin: 02/07/18 09:26 Dose: 100 mg Docusate Sodium (Colace) 100 mg PO BID [facility] Enoxaparin Sodium (Lovenox) 40 mg SC DAILY [facility] PRN Reason: Protocol Last Admin: 02/07/18 09:29 Dose: 40 mg Enoxaparin Sodium (Lovenox) 40 mg SC DAILY [facility] PRN Reason: Protocol Sodium Chloride (Sodium Chloride 0.9%) 1,000 mls @ 100 mls/hr IV .Q10H [facility] Sodium Chloride (Sodium Chloride 0.9%) 1,000 mls @ 100 mls/hr IV .Q10H [facility] Stop: 02/07/18 19:05 Last Admin: 02/07/18 06:36 Dose: Not Given Clindamycin in NS (Clindamycin 300 Mg/50 Ml-Ns) 300 mg in 50 mls @ 50 mls/hr IVPB Q8 [facility] PRN Reason: Protocol Last Admin: 02/07/18 09:27 Dose: 50 mls/hr Insulin Human Lispro (Humalog) 0 units SC ACHS [facility] PRN Reason: Protocol Last Admin: 02/06/18 21:42 Dose: Not Given Metformin HCl (Glucophage) 1,000 mg PO BID [facility] Last Admin: 02/07/18 09:26 Dose: 1,000 mg Ondansetron HCl (Zofran Inj) 4 mg IVP Q6 PRN PRN Reason: Nausea/Vomiting Ondansetron HCl (Zofran Inj) 4 mg IVP ONCE PRN PRN Reason: Nausea/Vomiting Pantoprazole Sodium (Protonix Ec Tab) 40 mg PO DAILY [facility] Last Admin: 02/07/18 09:25 Dose: 40 mg Sitagliptin Phosphate (Januvia) 100 mg PO DAILY [facility] Last Admin: 02/07/18 09:26 Dose: 100 mg - Labs Labs: 02/07/18 06:00 02/07/18 06:00 PT 15.7 Seconds (9.8-13.1) H 02/06/18 11:36 INR 1.4 (0.9-1.2) H 02/06/18 11:36 APTT 27.2 Seconds (25.6-37.1) 02/06/18 11:36 - Constitutional Appears: No Acute Distress - Head Exam Head Exam: ATRAUMATIC, NORMAL INSPECTION, NORMOCEPHALIC - Eye Exam Eye Exam: EOMI, Normal appearance, PERRL Pupil Exam: NORMAL ACCOMODATION - ENT Exam ENT Exam: Mucous Membranes Moist, Normal External Ear Exam - Neck Exam Neck Exam: Full ROM. absent: Meningismus - Respiratory Exam Respiratory Exam: NORMAL BREATHING PATTERN. absent: Respiratory Distress - Cardiovascular Exam Cardiovascular Exam: REGULAR RHYTHM, +S1, +S2 - GI/Abdominal Exam GI & Abdominal Exam: Soft, Normal Bowel Sounds. absent: Tenderness - Extremities Exam Extremities Exam: Normal Capillary Refill. absent: Calf Tenderness Additional comments: left knee with dressing and Immobilizer - Back Exam Back Exam: Full ROM, NORMAL INSPECTION. absent: CVA tenderness (L), CVA tenderness (R) - Neurological Exam Neurological Exam: Alert, Awake, CN II-XII Intact, Oriented x3 Neuro motor strength exam: Left Upper Extremity: 5, Right Upper Extremity: 5, Left Lower Extremity: 5, Right Lower Extremity: 5 - Psychiatric Exam Psychiatric exam: Normal Affect, Normal Mood - Skin Skin Exam: Normal Color, Warm Assessment and Plan - Assessment and Plan (Free Text) Assessment: 62 years old male with Hx of DM, Left TKR in 2016 with revision on 10/26/17 and 11/21/17 , treated for infected left TKR for more than 6 weeks with antibiotics ( Daptomycin- previous c/s : Staph coag neg) , presented with worsening left knee swelling , redness and pain Patient currently is afebrile , WBC 5 K but knee is swollen , red and warm. 02/06 : Removal of Hardware < left knee with placement of antibiotic spacer 1.Suspected infection of Left TKR , s/p Removal of [place] and Antibiotic spacer placed Ortho: Dr Hunter ID consulted- discussed case - rec Daptomycin and Ertapenem ( pt allergic to PCN ) PICC line placed as pt would need 6 wks IV antibiotics Pain management Wound Vac in place Patient had allergic reaction to vancomycin last admission . As per prior cultures only 1 specimen was reported positive for staph coag negative PT/OT consulted keep Knee Immobilizer on at all times Tip Toe weight bearing 2.Anemia, chronic stable 3. DM II with Hyperglycemia Regular insulin sliding scale , accuchecks diabetic diet on Metformin and januvia 4. DVt prophylaxis SCD and lovenox
[2018-02-07] MEDS ORDERED: DAPTOmycin 500 mg Inj (Cubicin) IVP SCH (14:15)
--- NOTE | 2018-02-07 14:42 | CP.PCM.PN ---
Subjective - Date & Time of Evaluation Date of Evaluation: 02/07/18 Time of Evaluation: 14:35 - Subjective Subjective: I D NOTE PATIENT WHO HAD COMPONENTS OF TKR REMOVED SURGICALLY ON 02/06/18 DUE TO INFECTION HAS ANTIBIOTIC SPACER AWAIT CULTURES HAVE STARTED IV DAPTOMYCIN/ERTAPENEM WILL NEED IV ANTIBIOTICS INITIALLY FOR 6 WEEKSPRIOR TO PLACING NEW TKR Objective - Vital Signs/Intake and Output Vital Signs (last 24 hours): Temp Pulse Resp BP Pulse Ox 99.6 F 111 H 18 122/60 98 02/07/18 10:18 02/07/18 10:18 02/07/18 10:18 02/07/18 10:18 02/07/18 10:18 Intake and Output: 02/07/18 02/07/18 06:59 18:59 Intake Total 1350 Output Total 800 Balance 550 - Medications Medications: Current Medications Acetaminophen (Ofirmev) 1,000 mg IVPB ONCE PRN PRN Reason: Pain, severe (8-10) Stop: 02/08/18 19:00 Last Admin: 02/06/18 19:15 Dose: 1,000 mg Acetaminophen (Tylenol 325mg Tab) 650 mg PO Q4 PRN PRN Reason: Fever 101 degrees fahrenheit Acetaminophen (Tylenol 325mg Tab) 975 mg PO Q6 [facility] Last Admin: 02/07/18 03:52 Dose: 975 mg Docusate Sodium (Colace) 100 mg PO BID [facility] Last Admin: 02/07/18 09:26 Dose: 100 mg Docusate Sodium (Colace) 100 mg PO BID [facility] Enoxaparin Sodium (Lovenox) 40 mg SC DAILY [facility] PRN Reason: Protocol Last Admin: 02/07/18 09:29 Dose: 40 mg Enoxaparin Sodium (Lovenox) 40 mg SC DAILY [facility] PRN Reason: Protocol Sodium Chloride (Sodium Chloride 0.9%) 1,000 mls @ 100 mls/hr IV .Q10H [facility] Sodium Chloride (Sodium Chloride 0.9%) 1,000 mls @ 100 mls/hr IV .Q10H [facility] Stop: 02/07/18 19:05 Last Admin: 02/07/18 06:36 Dose: Not Given Daptomycin 710 mg/ Sodium (Chloride) 100 mls @ 100 mls/hr IV DAILY@1500 [facility] Stop: 02/12/18 15:01 Ertapenem 1 gm/ Sodium (Chloride) 100 mls @ 100 mls/hr IVPB DAILY [facility] PRN Reason: Protocol Insulin Human Lispro (Humalog) 0 units SC ACHS [facility] PRN Reason: Protocol Last Admin: 02/06/18 21:42 Dose: Not Given Metformin HCl (Glucophage) 1,000 mg PO BID [facility] Last Admin: 02/07/18 09:26 Dose: 1,000 mg Ondansetron HCl (Zofran Inj) 4 mg IVP Q6 PRN PRN Reason: Nausea/Vomiting Ondansetron HCl (Zofran Inj) 4 mg IVP ONCE PRN PRN Reason: Nausea/Vomiting Pantoprazole Sodium (Protonix Ec Tab) 40 mg PO DAILY [facility] Last Admin: 02/07/18 09:25 Dose: 40 mg Sitagliptin Phosphate (Januvia) 100 mg PO DAILY [facility] Last Admin: 02/07/18 09:26 Dose: 100 mg - Labs Labs: 02/07/18 06:00 02/07/18 06:00 PT 15.7 Seconds (9.8-13.1) H 02/06/18 11:36 INR 1.4 (0.9-1.2) H 02/06/18 11:36 APTT 27.2 Seconds (25.6-37.1) 02/06/18 11:36
--- NOTE | 2018-02-07 16:18 | VASCULAR ---
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 COMPARISON: PICC insertion performed 11/28/2017 PROCEDURE: 1. Focused ultrasound of the left upper extremity vasculature. 2. Ultrasound-guided access. 3. Insertion of peripherally inserted central venous catheter. 4. Fluoroscopic localization of catheter tip. PRE-PROCEDURE FINDINGS: 1. Patent left basilic vein. POST-PROCEDURE FINDINGS: 1. Placement of 4 Fijian single-lumen PICC. 2. Catheter length: 50 cm. 3. Catheter tip at cavoatrial junction. INTERVENTIONAL RADIOLOGIST: Arvin Jurado M.D. (the attending was present for the entire procedure) ANESTHESIA: None. MEDICATION: Lidocaine 1% for local subcutaneous analgesia. COMPLICATIONS: None. RADIATION DOSE: Fluoroscopy Time: 56.8 seconds Cumulative Dose: 10.51 mGy PROCEDURE DESCRIPTION AND FINDINGS: The risks, benefits, alternatives and possible complications of the procedure were fully discussed; all questions were answered and informed consent was obtained. The patient was brought into the interventional suite and a pre-procedure 'time-out' was performed. The patient was placed on the fluoroscopy table in the supine position. The left upper extremity was prepped and draped in the usual sterile fashion. Maximum sterile barrier precautions were maintained throughout the entire procedure. Preliminary ultrasound images of the left upper extremity vasculature demonstrate patency of the left basilic vein. Following subcutaneous infiltration of 1% lidocaine for local analgesia, under ultrasound guidance, a 21-gauge needle was advanced into the left basilic vein with real-time visualization of needle entry. The ultrasound images were permanently recorded and submitted to the PACS. A 0.018 guidewire was advanced centrally to the cavoatrial junction. A 4.5 Fijian peel-away sheath was advanced over the guidewire. After obtaining length measurement, a 4 Fijian single-lumen PICC was placed with the tip of the catheter at the cavoatrial junction. The total length of the catheter is 50 cm. The hub of the PICC was secured to the skin using a sterile adhesive bandage. The patient tolerated the procedure well without immediate post-procedure complications and was transferred back to the floor in stable condition. IMPRESSION: SUCCESSFUL INSERTION OF LEFT UPPER EXTREMITY PICC. PICC OK TO USE.
[2018-02-08 06:17] LABS: HEMOGLOBIN 9.7 g/dL (12.0-18.0); MEAN CORPUSCULAR HEMOGLOBIN 28.3 pg (27.0-31.0); MEAN CORPUSCULAR HGB CONC 33.3 g/dL (33.0-37.0); RBC 3.43 Mil/uL (4.40-5.90); RED CELL DISTRIBUTION WIDTH 17.8 % (11.5-14.5); WHITE BLOOD COUNT 6.5 K/uL (4.8-10.8)
[2018-02-08] MEDS: Sodium Chloride 0.9% 1,000 ML IV SCH (07:00)
[2018-02-08 07:14] LABS: ALB/GLOB RATIO 1.1 (1.0-2.1); ALBUMIN 3.2 g/dL (3.5-5.0); ALT/SGPT 31 U/L (21-72); AST/SGOT 20 U/L (17-59); BLOOD UREA NITROGEN 9 mg/dl (9-20); CALCIUM 8.4 mg/dL (8.4-10.2); GFR AFRICAN-AMERICAN > 60; GFR NON-AFRICAN AMERICAN > 60
[2018-02-08] MEDS: Insulin Lispro (humaLOG) 100 Units/ml Inj SC SCH ×3 (07:31→15:45)
--- NOTE | 2018-02-08 07:55 | CON ---
INFECTIOUS DISEASE CONSULT DATE: HISTORY OF PRESENT ILLNESS: The patient is a 62-year-old male with history of diabetes, hypertension ,and had a left total knee replacement in 2016 and he has had multiple revisions since, one being in 10/2017 and then 11/2017. He has been treated with IV antibiotics during this period intravenously with vancomycin, which he subsequently had an issue , possible allergy and then daptomycin. After completion of 6 weeks of his therapy, he was put on p.o. Zyvox by Dr. Hunter after discussion with me and was doing well physically, but developed an infection of the knee with swelling, chills and fever, and also had drainage from the wound site. The patient was brought to the ER for treatment and Dr. Hunter advised admission to the admission to the hospital.The patient was brought to the operating room yesterday, which was 02/06/2018. The patient had removal of the hardware and he had a placement of an antibiotic-impregnated spacer. Discussed the case with the patient and stated during the period, he received the IV daptomycin, he had no swelling or evidence of infection and also said the same thing while he was on vancomycin, it was the period when he started on oral antibiotics that he began to develop signs of infection. Micro, probably had a history of Staph epidermidis in one of the cultures; otherwise, most of the cultures have been negative despite the persistence of this infection. LABORATORY DATA: White count is 5.7, hemoglobin is 11.8, and platelet count 249. He has 72% polys. GFR is greater than 60, creatinine is 0.8, and BUN is 10. PHYSICAL EXAMINATION: GENERAL: The patient is alert, cooperative, and oriented to time and place. HEENT: Within normal limits. NECK: Supple. HEART: Regular sinus rhythm. LUNGS: Some decreased breath sounds at the bases. ABDOMEN: Soft. Positive bowel sounds. EXTREMITIES: Right lower extremity within normal limits and left has the dressing in place. IMPRESSION AND PLAN: Continued infection of total knee replacement, has antibiotic-impregnated spacer, and will need IV antibiotics 6 weeks just for the period of the spacer, which will be daptomycin and ertapenem until possibly return of cultures in which case, we will reevaluate for antibiotic treatment after replacement with knee, he will also need a followup every 4 to 6 weeks of IV antibiotics. Cameron Mondragon MD [facility]
[2018-02-08] MEDS: Pantoprazole 40 mg EC Tab PO SCH (11:14)
[2018-02-08] MEDS: Enoxaparin 40 mg Syringe SC SCH (11:16)
--- NOTE | 2018-02-08 14:12 | CP.PCM.DIS ---
Provider - Provider Date of Admission: 02/06/18 08:20 Attending physician: García Arreola MD Consults: Ortho: DR Hunter ID: [email or web address] Time Spent in preparation of Discharge (in minutes): 40 Diagnosis - Discharge Diagnosis (1) Infection associated with internal left knee prosthesis Status: Acute (2) DM type 2 (diabetes mellitus, type 2) Status: Chronic (3) Painful total knee replacement, left Status: Chronic Hospital Course - Lab Results Lab Results: Micro Results 02/06/18 14:00 Abscess - Third Gram Stain - Final 02/06/18 14:00 Abscess - Third Wound Culture - Preliminary Gram Negative Pablo 02/06/18 14:30 Body Fluid - Knee-Left Gram Stain - Final 02/06/18 14:30 Body Fluid - Knee-Left Anaerobic Culture - Final NO ANAEROBES ISOLATED. 02/06/18 14:30 Body Fluid - Knee-Left Body Fluid Culture - Preliminary NO GROWTH AFTER 2 DAYS 02/06/18 14:30 Body Fluid - Knee-Left Gram Stain - Final 02/06/18 14:30 Body Fluid - Knee-Left Anaerobic Culture - Final NO ANAEROBES ISOLATED. 02/06/18 14:30 Body Fluid - Knee-Left Body Fluid Culture - Preliminary Gram Negative Pablo 02/06/18 14:45 Knee - Left Gram Stain - Final 02/06/18 14:45 Knee - Left Wound Culture - Preliminary No growth. 02/06/18 14:45 Knee - Left Gram Stain - Final 02/06/18 14:45 Knee - Left Wound Culture - Preliminary No growth. 02/06/18 14:45 Knee - Left Gram Stain - Final 02/06/18 14:45 Knee - Left Wound Culture - Preliminary No growth. 02/06/18 14:45 Knee - Left Gram Stain - Final 02/06/18 14:45 Knee - Left Wound Culture - Preliminary No growth. 02/06/18 14:45 Knee - Left Gram Stain - Final 02/06/18 14:45 Knee - Left Wound Culture - Preliminary No growth. 02/06/18 14:45 Knee - Left Gram Stain - Final 02/06/18 14:45 Knee - Left Wound Culture - Preliminary No growth. 02/06/18 14:45 Knee - Left Gram Stain - Final 02/06/18 14:45 Knee - Left Wound Culture - Preliminary No growth. 02/06/18 14:45 Knee - Left Gram Stain - Final 02/06/18 14:45 Knee - Left Anaerobic Culture - Final NO ANAEROBES ISOLATED. 02/06/18 14:45 Knee - Left Wound Culture - Preliminary No growth. 02/06/18 14:45 Knee - Left Gram Stain - Final 02/06/18 14:45 Knee - Left Wound Culture - Preliminary No growth. 02/06/18 14:45 Knee - Left Gram Stain - Final 02/06/18 14:45 Knee - Left Wound Culture - Preliminary No growth. 02/06/18 14:45 Knee - Left Gram Stain - Final 02/06/18 14:45 Knee - Left Wound Culture - Preliminary No growth. 02/06/18 14:45 Knee - Left Gram Stain - Final 02/06/18 14:45 Knee - Left Wound Culture - Preliminary No growth. 02/06/18 14:45 Knee - Left Gram Stain - Final 02/06/18 14:45 Knee - Left Wound Culture - Preliminary No growth. 02/06/18 14:45 Knee - Left Gram Stain - Final 02/06/18 14:45 Knee - Left Wound Culture - Preliminary No growth. 02/06/18 14:15 Knee - Left Gram Stain - Final 02/06/18 14:15 Knee - Left Anaerobic Culture - Final NO ANAEROBES ISOLATED. 02/06/18 14:15 Knee - Left Wound Culture - Preliminary No growth. 02/06/18 14:15 Body Fluid - Knee-Left Gram Stain - Final 02/06/18 14:15 Body Fluid - Knee-Left Body Fluid Culture - Preliminary NO GROWTH AFTER 24 HOURS 02/06/18 08:31 Blood-Venous Blood Culture - Preliminary NO GROWTH AFTER 48 HOURS 02/06/18 07:19 Blood-Venous Blood Culture - Preliminary NO GROWTH AFTER 48 HOURS 02/06/18 14:15 Other: Please Indicate Mycobacterial Culture - Preliminary 02/06/18 14:30 Other: Please Indicate Mycobacterial Culture - Preliminary 02/06/18 14:30 Other: Please Indicate Mycobacterial Culture - Preliminary 02/06/18 14:15 Knee Left Fungal Culture - Preliminary 02/06/18 14:30 Knee Left Fungal Culture - Preliminary 02/06/18 14:00 Abscess - Third Fungal Culture - Preliminary 02/06/18 14:45 Knee - Left Gram Stain - Final 02/06/18 14:45 Knee - Left Wound Culture - Preliminary NO GROWTH AFTER 24 HOURS Most Recent Lab Values WBC 6.5 K/uL (4.8-10.8) 02/08/18 05:50 RBC 3.43 Mil/uL (4.40-5.90) L 02/08/18 05:50 Hgb 9.7 g/dL (12.0-18.0) L 02/08/18 05:50 Hct 29.1 % (35.0-51.0) L 02/08/18 05:50 MCV 85.0 fl (80.0-94.0) 02/08/18 05:50 MCH 28.3 pg (27.0-31.0) 02/08/18 05:50 MCHC 33.3 g/dL (33.0-37.0) 02/08/18 05:50 RDW 17.8 % (11.5-14.5) H 02/08/18 05:50 Plt Count 217 K/uL (130-400) 02/08/18 05:50 MPV 6.5 fl (7.2-11.7) L 02/07/18 06:00 Neut % (Auto) 74.2 % (50.0-75.0) 02/07/18 06:00 Lymph % (Auto) 16.8 % (20.0-40.0) L 02/07/18 06:00 [place] % (Auto) 7.6 % (0.0-10.0) 02/07/18 06:00 Eos % (Auto) 1.1 % (0.0-4.0) 02/07/18 06:00 Baso % (Auto) 0.3 % (0.0-2.0) 02/07/18 06:00 Neut # (Auto) 4.1 K/uL (1.8-7.0) 02/07/18 06:00 Lymph # (Auto) 0.9 K/uL (1.0-4.3) L 02/07/18 06:00 [place] # (Auto) 0.4 K/uL (0.0-0.8) 02/07/18 06:00 Eos # (Auto) 0.1 K/uL (0.0-0.7) 02/07/18 06:00 Baso # (Auto) 0.0 K/uL (0.0-0.2) 02/07/18 06:00 ESR 82 mm/hr (0-20) H 02/08/18 05:50 PT 15.7 Seconds (9.8-13.1) H 02/06/18 11:36 INR 1.4 (0.9-1.2) H 02/06/18 11:36 APTT 27.2 Seconds (25.6-37.1) 02/06/18 11:36 pO2 57 mm/Hg (30-55) H 02/06/18 07:31 VBG pH 7.45 (7.32-7.43) H 02/06/18 07:31 VBG pCO2 36 mmHg (40-60) L 02/06/18 07:31 VBG HCO3 25.8 mmol/L 02/06/18 07:31 VBG Total CO2 26.1 mmol/L (22-28) 02/06/18 07:31 VBG O2 Sat (Calc) 93.5 % (40-65) H 02/06/18 07:31 VBG Base Excess 1.3 mmol/L (0.0-2.0) 02/06/18 07:31 VBG Potassium 3.8 mmol/L (3.6-5.2) 02/06/18 07:31 Sodium 136.0 mmol/L (132-148) 02/06/18 07:31 Chloride 105.0 mmol/L (98-107) 02/06/18 07:31 Glucose 139 mg/dL (75-110) H 02/06/18 07:31 Lactate 1.2 mmol/L (0.7-2.1) 02/06/18 07:31 FiO2 21.0 % 02/06/18 07:31 Sodium 140 mmol/l (132-148) 02/08/18 05:50 Potassium 4.3 MMOL/L (3.6-5.0) 02/08/18 05:50 Chloride 103 mmol/L (98-107) 02/08/18 05:50 Carbon Dioxide 24 mmol/L (22-30) 02/08/18 05:50 Anion Gap 17 (10-20) 02/08/18 05:50 BUN 9 mg/dl (9-20) 02/08/18 05:50 Creatinine 0.8 mg/dl (0.8-1.5) 02/08/18 05:50 Est GFR ( Amer) > 60 02/08/18 05:50 Est GFR (Non-Af Amer) > 60 02/08/18 05:50 POC Glucose (mg/dL) 148 mg/dL (65-110) H 02/08/18 11:10 Random Glucose 127 mg/dL (75-110) H 02/08/18 05:50 Calcium 8.4 mg/dL (8.4-10.2) 02/08/18 05:50 Total Bilirubin 1.0 mg/dl (0.2-1.3) 02/08/18 05:50 AST 20 U/L (17-59) 02/08/18 05:50 ALT 31 U/L (21-72) 02/08/18 05:50 Alkaline Phosphatase 33 U/L (38-126) L 02/08/18 05:50 Total Creatine Kinase 164 U/L (55-170) 02/08/18 05:50 Total Protein 6.3 G/DL (6.3-8.2) 02/08/18 05:50 Albumin 3.2 g/dL (3.5-5.0) L D 02/08/18 05:50 Globulin 3.1 gm/dL (2.2-3.9) 02/08/18 05:50 Albumin/Globulin Ratio 1.1 (1.0-2.1) 02/08/18 05:50 25-OH Vitamin D Total 15.4 NG/ML (30.0-100.0) L 02/07/18 06:00 Venous Blood Potassium 3.8 mmol/L (3.6-5.2) 02/06/18 07:31 Fluid Type Synovial fluid 02/06/18 14:30 Synovial WBC 85511.0 /mm3 (0.0-150.0) H 02/06/18 14:30 Synovial RBC 75020.0 /mm3 (0.0-0.0) H 02/06/18 14:30 Synovial Neutrophils 86.0 % (0-0) H 02/06/18 14:30 Synovial Lymphocytes 9.0 % (0-0) H 02/06/18 14:30 Synov Monos/Macrophage 5 % (0-0) H 02/06/18 14:30 Synovial Fluid Comment Moderately bloody 02/06/18 14:30 Blood Type A POSITIVE 02/06/18 07:08 Antibody Screen Negative 02/06/18 07:08 Crossmatch See Detail 02/06/18 07:08 BBK History Checked Patient has bt 02/06/18 07:08 - Hospital Course Hospital Course: 62 years old male with Hx of DM, Left TKR in 2016 with revision on 10/26/17 and 11/21/17 , treated for infected left TKR for more than 6 weeks with antibiotics ( Daptomycin- previous c/s : Staph coag neg) , presented with worsening left knee swelling , redness and pain Patient currently is afebrile , WBC 5 K but knee is swollen , red and warm. 02/06 : Removal of Hardware of left knee with placement of antibiotic spacer 1. Septic left TKR , s/p Removal of Hardware and Antibiotic spacer placed Ortho: Dr Dale WANG consulted- discussed case - rec Daptomycin and Ertapenem ( pt allergic to PCN ) PICC line placed as pt would need 6 wks IV antibiotics Pain management Wound Vac Patient had allergic reaction to vancomycin last admission . As per prior cultures only 1 specimen was reported positive for staph coag negative PT/OT consulted keep Knee Immobilizer on at all times Tip Toe weight bearing 2.Anemia, chronic stable 3. DM II with Hyperglycemia Regular insulin sliding scale , accuchecks diabetic diet on Metformin and januvia 4. DVt prophylaxis SCD and lovenox Discharge Exam - Head Exam Head Exam: ATRAUMATIC, NORMAL INSPECTION, NORMOCEPHALIC - Eye Exam Eye Exam: EOMI, Normal appearance, PERRL Pupil Exam: NORMAL ACCOMODATION - ENT Exam ENT Exam: Mucous Membranes Moist, Normal External Ear Exam - Neck Exam Neck exam: Full Rom - Respiratory Exam Respiratory Exam: NORMAL BREATHING PATTERN. absent: Respiratory Distress - Cardiovascular Exam Cardiovascular Exam: REGULAR RHYTHM, +S1, +S2 - GI/Abdominal Exam GI & Abdominal Exam: Normal Bowel Sounds, Soft. absent: Tenderness - Extremities Exam Extremities exam: full ROM, normal capillary refill, pedal pulses present Additional comments: no calf tenderness left knee with Immobilizer and Wound Vac - Back Exam Back exam: FULL ROM. absent: CVA tenderness (L), CVA tenderness (R) - Neurological Exam Neurological exam: Alert, CN II-XII Intact, Oriented x3, Reflexes Normal - Psychiatric Exam Psychiatric exam: Normal Affect, Normal Mood - Skin Skin Exam: Dry, Normal Color, Warm Discharge Plan - Discharge Medications Prescriptions: Daptomycin 710 mg IV DAILY 42 Days #42 vial Docusate [Colace] 100 mg PO BID #60 cap Enoxaparin [Lovenox] 40 mg SQ DAILY #30 syr Ertapenem 1gm in NS 50ml [Invanz] 1 gm IVPB DAILY 42 Days #42 bag Ferrous Sulfate [Feosol] 325 mg PO BID #60 tab Lactobacillus Acidophilus [Bacid Acidophilus] 1 cap PO BID #100 cap - Follow Up Plan Condition: GOOD Disposition: HOME/ ROUTINE Instructions: Cellulitis (Skin Infection), Adult (DC), Wound Infection, Negative Pressure Wound Therapy Additional Instructions: follow up with Dr Hunter in 1 wk [facility] [phone] Visiting Nurse [facility] [phone] Home RN and Home PT IV Dapto and Ertapenem daily x 6 wks Weekly CBC, CMP, CPK , ESR -send results to Dr Mosher Keep Immobilizer on Tip Toe weight bearing only Referrals: Cameron Mosher MD [Medical Doctor] -
[2018-02-08 15:55] VITALS: RESP 18; O2SAT 95
--- NOTE | 2018-02-08 17:31 | CP.PCM.PN ---
Subjective - Date & Time of Evaluation Date of Evaluation: 02/08/18 Time of Evaluation: 12:00 - Subjective Subjective: Patient seen and examined at bedside comfortable. pain well controlled. Yuni diet. No new complaints Objective - Vital Signs/Intake and Output Vital Signs (last 24 hours): Temp Pulse Resp BP Pulse Ox 98.2 F 104 H 18 105/74 95 02/08/18 15:54 02/08/18 15:54 02/08/18 15:54 02/08/18 15:54 02/08/18 15:54 Intake and Output: 02/08/18 02/08/18 06:59 18:59 Output Total 0 Balance 0 - Medications Medications: Current Medications Acetaminophen (Ofirmev) 1,000 mg IVPB ONCE PRN PRN Reason: Pain, severe (8-10) Stop: 02/08/18 19:00 Last Admin: 02/06/18 19:15 Dose: 1,000 mg Acetaminophen (Tylenol 325mg Tab) 650 mg PO Q4 PRN PRN Reason: Fever 101 degrees fahrenheit Acetaminophen (Tylenol 325mg Tab) 975 mg PO Q6 [facility] Last Admin: 02/08/18 11:21 Dose: 975 mg Docusate Sodium (Colace) 100 mg PO BID [facility] Last Admin: 02/08/18 16:13 Dose: 100 mg Enoxaparin Sodium (Lovenox) 40 mg SC DAILY [facility] PRN Reason: Protocol Last Admin: 02/08/18 11:16 Dose: 40 mg Ferrous Sulfate (Feosol) 325 mg PO BID [facility] Last Admin: 02/08/18 16:13 Dose: 325 mg Sodium Chloride (Sodium Chloride 0.9%) 1,000 mls @ 100 mls/hr IV .Q10H [facility] Last Admin: 02/08/18 07:00 Dose: Not Given Daptomycin 710 mg/ Sodium (Chloride) 100 mls @ 100 mls/hr IV DAILY@1500 [facility] Stop: 02/12/18 15:01 Last Admin: 02/08/18 16:28 Dose: 100 mls/hr Ertapenem 1 gm/ Sodium (Chloride) 100 mls @ 100 mls/hr IVPB DAILY [facility] PRN Reason: Protocol Last Admin: 02/08/18 11:22 Dose: 100 mls/hr Insulin Human Lispro (Humalog) 0 units SC ACHS [facility] PRN Reason: Protocol Last Admin: 02/08/18 15:45 Dose: Not Given Metformin HCl (Glucophage) 1,000 mg PO BID [facility] Last Admin: 02/08/18 16:13 Dose: 1,000 mg Ondansetron HCl (Zofran Inj) 4 mg IVP Q6 PRN PRN Reason: Nausea/Vomiting Ondansetron HCl (Zofran Inj) 4 mg IVP ONCE PRN PRN Reason: Nausea/Vomiting Pantoprazole Sodium (Protonix Ec Tab) 40 mg PO DAILY [facility] Last Admin: 02/08/18 11:14 Dose: 40 mg Sitagliptin Phosphate (Januvia) 100 mg PO DAILY [facility] Last Admin: 02/08/18 11:13 Dose: 100 mg - Labs Labs: 02/08/18 05:50 02/08/18 05:50 PT 15.7 Seconds (9.8-13.1) H 02/06/18 11:36 INR 1.4 (0.9-1.2) H 02/06/18 11:36 APTT 27.2 Seconds (25.6-37.1) 02/06/18 11:36 - Extremities Exam Additional comments: L knee: Knee immobilizer in place dressings CDI Prevena intact sensation intact SP/DP/TN motor intact EHL/FHL/TA/G pedal pulses intact comp soft NT Assessment and Plan (1) Infection associated with internal left knee prosthesis Assessment & Plan: POD# 2 s/p L knee removal of infected prosthesis and antibiotic spacer placement -pain control -Strict knee imm, keep in extension -PT/OT TTWB LLE -abx as per ID -orthopedically stable for d/c, f/u in office on Saturday 02/10 -above d/w Dr. Hunter in agreement Status: Acute
[2018-02-08 20:21] VITALS: BP 114/76; PULSE 99; TEMP 98.4
--- NOTE | 2018-02-09 08:42 | OP ---
PROCEDURE DATE: 02/06/18 PREOPERATIVE DIAGNOSIS: Septic left knee replacement. POSTOPERATIVE DIAGNOSIS: Septic left knee replacement (greater than 55 white cells per high-power field on stat Gram stain). OPERATIVE PROCEDURE: 1. Removal of left total knee replacement components and insertion of antibiotic impregnated spacer. 2. Repair/reinforcement of left patellar ligament. 3. Arthrotomy and extensive synovectomy. 4. Posterior capsular release. 5. Lateral patellar retinacular release. 6. Excision of skin, subcutaneous tissue, and muscle. SURGEON: Tyree Hunter MD COMMUNICATIONS AND SIGNALS SUPERVISOR: ROHAN Jules, certified nursing first responder. SECOND ASSISTANTS: Jocelin Pan PA-C/German Jimenez PA-C COMPLICATIONS: No complications. DRAINS: Prevena wound VAC/drainage. TYPE OF ANESTHESIA: General and regional anesthesia. ANESTHESIA ADMINISTERED BY: Leon Tinajero MD ESTIMATED BLOOD LOSS: Approximately 175 mL. BLOOD REPLACEMENT: None. OPERATIVE INDICATIONS: German Hagen is a gentleman well known to my practice, who underwent left revision knee replacement arthroplasty several months ago. The findings in surgery allowed polyethylene exchange and patellar revision. The patient was treated with intravenous antibiotics and was managed by Infectious Disease steam and power superintendent by Dr. Mondragon. The patient presents to the emergency room at [facility] on 02/05/2018 with severe pain, effusion, marked erythema around the left knee incision, and inability to ambulate. The patient presents as an emergency, he is evaluated and is admitted. X-rays were obtained, which do reveal evidence of loosening of tibial plateau. The patient is admitted. Pros, cons, risks, and benefits of surgical approach were discussed. Since the patient had already had a polyethylene exchange, the concept of arthrotomy, exploration, stat Gram stain, number of white cells per high-powered field and shown at surgery that the white cells indicating sepsis, it is expected that components will be removed and antibiotic impregnated spacer would be introduced. Pros, cons, risks, and benefits of the same were discussed. Possibility of mechanical failure, infection, recurrent infection, thromboembolic disease, secondary or tertiary surgery was discussed. The patient wishes the surgery will be accomplished as an emergency. OPERATIVE PROCEDURE: After medical stabilization, after having obtained informed consent in the above fashion, after the satisfactory induction of general and regional anesthesia, after having identified side, site, and procedure left knee and a critical pause/time-out, the patient identified as German Hagen in the supine position with all bony prominences well padded, and the left lower extremity was prepped and free draped in the usual fashion for lower extremity surgery. The tourniquet had been applied. After exsanguinating the limb using 6-inch Esmarch bandage, the tourniquet which had been applied is inflated to 350 mmHg. The initial incision is likely two fingerbreadths distal and two fingerbreadths proximal. An ellipse of skin is removed. The skin incision was carried down through the skin and subcutaneous tissue. Dissection is carried down to the level of the prepatellar bursa and there is exuberant synovitis and gelatinous purulent material in the knee joint. This is identified. This having been accomplished, a medial arthrotomy is accomplished. Great care was taken to performing medial arthrotomy. The fluid at this point is found to be purulent and it is in fact pus. This is aspirated and sent to the lab for a number of white cells per high-powered field and stat Gram stain. This having been accomplished, debulking of the knee began as there is a terrific amount of purulence somewhat marbled synovitis. A thorough anterior synovectomy is accomplished. There was found to be marked scarring in synovitis beneath the quadriceps tendon and in the lateral gutter and in the posterior compartment. This having been accomplished, great care was taken to elevate a portion of the patellar ligament. Patellar ligament remains intact. Dissection was carried around posterolaterally to the iliotibial band insertion, which is released. The tibia is identified and the tibia is dislocated anteriorly. The tibia having been dislocated anteriorly, the polyethylene is removed. This having been accomplished, there was found to be loosening of the tibial component. An aggressive extensive anterior and posterior synovectomy is accomplished. Synovectomy in the lateral gutter is accomplished. Synovectomy deep to the quadriceps tendon is accomplished and as well as the exuberant tissue around the patella. This having been accomplished. Tyree Hunter MD
--- NOTE | 2018-02-09 11:57 | CARD ---
APPROVED REPORT EXAM: Two-dimensional and M-mode echocardiogram with Doppler and color Doppler. Other Information Quality : GoodRhythm : NSR INDICATION Infection: 2D DIMENSIONS IVSd1.21 (0.7-1.1cm)LVDd4.75 (3.9-5.9cm) LVOT Diameter2.24 (1.8-2.4cm)PWd1.29 (0.7-1.1cm) IVSs1.14 (0.8-1.2cm)LVDs4.21 (2.5-4.0cm) FS (%) 11.4 %PWs1.62 (0.8-1.2cm) M-Mode DIMENSIONS Left Atrium (MM)3.38 (2.5-4.0cm)IVSd1.16 (0.7-1.1cm) Aortic Root4.17 (2.2-3.7cm)LVDd7.28 (4.0-5.6cm) Aortic Cusp Exc.2.35 (1.5-2.0cm)PWd1.16 (0.7-1.1cm) IVSs1.69 cmFS (%) 45 % LVDs4.04 (2.0-3.8cm)PWs2.08 cm Mitral Valve E/A ratio0.0 TDI E/Lateral E'0.0E/Medial E'0.0 Pulmonary Valve PV Peak Revxwbtd07.2cm/s LEFT VENTRICLE The left ventricle is normal size. There is normal left ventricular wall thickness. The left ventricular function is normal. The left ventricular ejection fraction is within the normal range. There is normal LV segmental wall motion. Transmitral Doppler flow pattern is Grade I-abnormal relaxation pattern. No left ventricle thrombus noted on this study. There is no ventricular septal defect visualized. There is no left ventricular aneurysm. There is no mass noted in the left ventricle. RIGHT VENTRICLE The right ventricle is normal size. There is normal right ventricular wall thickness. The right ventricular systolic function is normal. ATRIA The left atrium size is normal. The right atrium size is normal. The interatrial septum is intact with no evidence for an atrial septal defect. AORTIC VALVE The aortic valve is normal in structure. No aortic regurgitation is present. There is no aortic valvular stenosis. There is no aortic valvular vegetation. MITRAL VALVE The mitral valve is normal in structure. There is no evidence of mitral valve prolapse. . There is no mitral valve stenosis. There is no mitral valve regurgitation noted. TRICUSPID VALVE The tricuspid valve is normal in structure. There is no tricuspid valve regurgitation noted. There is no tricuspid valve prolapse or vegetation. There is no tricuspid valve stenosis. PULMONIC VALVE The pulmonary valve is normal in structure. There is no pulmonic valvular regurgitation. There is no pulmonic valvular stenosis. GREAT VESSELS The aortic root is normal in size. The ascending aorta is normal in size. The IVC is normal in size and collapses >50% with inspiration. PERICARDIAL EFFUSION The pericardium appears normal. There is no pleural effusion. <Conclusion> Normal Echocardiogram No vegitations visualized
== END 2018-02-08 20:10 | disposition home health service (06) | DRG 465 ==
LOC: H.ER 05:55 → H.ERHOLD 08:20 → H.MEDSURG1 09:52
PROVIDERS: ADMIT Hospitalist; ATTEND Hospitalist
PROC: 02HV33Z Insertion of Infusion Device into Superior Vena Cava, Percutaneous Approach (ICD-10-PCS; 2018-02-06)
PROC: B548ZZA Ultrasonography of Superior Vena Cava, Guidance (ICD-10-PCS; 2018-02-06)
PROC: 3E04329 Introduction of Other Anti-infective into Central Vein, Percutaneous Approach (ICD-10-PCS; 2018-02-06)
PROC: 30233N1 Transfusion of Nonautologous Red Blood Cells into Peripheral Vein, Percutaneous Approach (ICD-10-PCS; 2018-02-06)
PROC: 0SPD0JZ Removal of Synthetic Substitute from Left Knee Joint, Open Approach (ICD-10-PCS; principal; 2018-02-06 11:15)
PROC: 0SHD08Z Insertion of Spacer into Left Knee Joint, Open Approach (ICD-10-PCS; 2018-02-06 11:15)
PROC: 3E0T3BZ Introduction of Anesthetic Agent into Peripheral Nerves and Plexi, Percutaneous Approach (ICD-10-PCS; 2018-02-06 11:15)
PROC: 3E0T33Z Introduction of Anti-inflammatory into Peripheral Nerves and Plexi, Percutaneous Approach (ICD-10-PCS; 2018-02-06 11:15)
DX: T84.54XA Infection and inflammatory reaction due to internal left knee prosthesis, initial encounter (principal); B96.89 Other specified bacterial agents as the cause of diseases classified elsewhere; E11.65 Type 2 diabetes mellitus with hyperglycemia; M65.862 Other synovitis and tenosynovitis, left lower leg; Z96.652 Presence of left artificial knee joint; I10 Essential (primary) hypertension; D64.9 Anemia, unspecified; Y83.1 Surgical operation with implant of artificial internal device as the cause of abnormal reaction of the patient, or of later complication, without mention of misadventure at the time of the procedure; Z87.891 Personal history of nicotine dependence; Z79.84 Long term (current) use of oral hypoglycemic drugs; Z88.0 Allergy status to penicillin; Z88.6 Allergy status to analgesic agent

== ENCOUNTER 2018-04-10 06:24 | Day surgery (SDC) | payer BC ==
[2018-04-04 09:44] VITALS: BMI 31.2
[2018-04-10] MEDS ORDERED: Lactated Ringer's 1,000 ML IV ONE (07:04)
[2018-04-10] MEDS ORDERED: Propofol 10 mg/ml Inj (20 ML) ONE (07:10)
[2018-04-10] MEDS ORDERED: methylPREDNISolone Depo 80 mg/ml Inj ONE (07:18)
[2018-04-10] MEDS ORDERED: Iohexol 300 10 ML ONE (07:19)
[2018-04-10] MEDS ORDERED: Bupivacaine HCl 0.5% PF (10 ml) Inj ONE (07:19)
[2018-04-10] MEDS ORDERED: ceFAZolin IV 2 gm in Dextrose 0 GM/0 ML BAG IVPB ONE (07:20)
[2018-04-10] MEDS ORDERED: Bacitracin Ointment 30 GM TUBE ONE (07:21)
--- NOTE | 2018-04-10 07:30 | CP.PCM.CON ---
History of Present Illness - History of Present Illness History of Present Illness: Orthopedic consultation Dr. Hunter 62M s/p left removal of prosthesis 02/06/2018, admitted for OR for aspiration/ culture of left knee for possible revision TKR. Patient denies pain, drainage, fever, chills. 11/21/2017 I&D, poly exchange 10/28/2017 primary L TKR PMH: DM, arthritis All: aspirin Past Patient History - Tetanus Immunizations Tetanus Immunization: Unknown - Past Medical History & Family History Past Medical History?: Yes - Past Social History Smoking Status: Never Smoked - PULMONARY Hx Respiratory Disorders: No - NEUROLOGICAL Hx Neurological Disorder: No - HEENT Hx HEENT Problems: No - RENAL Hx Chronic Kidney Disease: No - ENDOCRINE/METABOLIC Hx Endocrine Disorders: Yes (DM) Hx Diabetes Mellitus Type 2: Yes - HEMATOLOGICAL/ONCOLOGICAL Hx Blood Disorders: Yes Hx Blood Transfusions: Yes Hx Blood Transfusion Reaction: No - INTEGUMENTARY Hx Dermatological Problems: No - MUSCULOSKELETAL/RHEUMATOLOGICAL Hx Musculoskeletal Disorders: Yes Hx Arthritis: Yes (hands) Hx Falls: No - GASTROINTESTINAL Hx Gastrointestinal Disorders: No - GENITOURINARY/GYNECOLOGICAL Hx Genitourinary Disorders: No - PSYCHIATRIC Hx Psychophysiologic Disorder: Yes Hx Emotional Abuse: No Hx Physical Abuse: No Hx Substance Use: No Other/Comment: history of alcoholism, sober for years - SURGICAL HISTORY Hx Surgeries: Yes Hx Herniorrhaphy: Yes (bilateral inguinal (3 surgeries)) Hx Joint Replacement: Yes (left knee) Hx Orthopedic Surgery: Yes (left knee replacement 3.5 yr ago and revision ) Other/Comment: Hx varicose veins sx. Hx skin graft on right index finger - ANESTHESIA Hx Anesthesia: Yes Hx Anesthesia Reactions: No Hx Malignant Hyperthermia: No Meds Allergies/Adverse Reactions: Allergies Allergy/AdvReac Type Severity Reaction Status Date / Time aspirin Allergy RASH Verified 11/21/17 07:24 vancomycin AdvReac FEVER Verified 02/06/18 08:39 - Medications Medications: Current Medications Acetaminophen (Ofirmev) 100 mls @ 400 mls/hr IVPB ONCE ONE PRN Reason: Protocol Stop: 04/10/18 07:44 Physical Exam - Constitutional Appears: Well, No Acute Distress - Head Exam Head Exam: ATRAUMATIC - Neck Exam Neck exam: Positive for: Full Rom, Normal Inspection - Respiratory Exam Respiratory Exam: NORMAL BREATHING PATTERN - Cardiovascular Exam Additional comments: +DP/PT - Extremities Exam Additional comments: +ROM ankle/toes, incision well healed, calves soft NT neg homans +DP/PT pulses - Neurological Exam Neurological exam: Alert, Oriented x3 - Psychiatric Exam Psychiatric exam: Normal Affect, Normal Mood - Skin Skin Exam: Dry, Intact, Normal Color, Warm Results - Vital Signs Recent Vital Signs: Last Vital Signs Temp 97.7 F 04/10/18 07:03 Pulse 71 04/10/18 07:03 Resp 20 04/10/18 07:03 BP 118/85 04/10/18 07:03 Pulse Ox 98 04/10/18 07:03 - Labs Labs: Laboratory Results - last 24 hr 04/10/18 06:50 POC Glucose (mg/dL) 103 Assessment & Plan (1) Infection associated with internal left knee prosthesis Assessment and Plan: s/p 8 weeks IV antibiotics for aspiration of knee/culture/possible revision f/u culture results d/c home today post procedure will schedule OR for revision based on intraop specimen results as per Dr. Hunter Status: Acute
[2018-04-10] MEDS ORDERED: Midazolam 2 MG/2 ML VIAL ONE (07:55)
[2018-04-10] MEDS ORDERED: Phenylephrine 10 mg/ml Inj ONE (08:11)
[2018-04-10] MEDS ORDERED: Iohexol 300 10 ML IJ ONE ×2 (08:40)
[2018-04-10 09:07] LABS: FLUID TYPE SYNOVIAL FLUID
[2018-04-10] MEDS ORDERED: HYDROmorphone 0.5 mg/0.5 ml ISec IVP PRN (09:07)
[2018-04-10] MEDS ORDERED: Lactated Ringer's 1,000 ML IV SCH (09:15)
[2018-04-10] MEDS ORDERED: Oxycodone/Acetaminophen 5/325 mg Tab PO PRN (09:27)
--- NOTE | 2018-04-10 09:27 | CP.SDSHP ---
Same Day Surgery H & P - History Proposed Procedure: Left knee aspiration/culture s/p explant Pre-Op Diagnosis: left knee prosthetic joint infection - Previous Medical/Surgical History Endocrine/Metabolic: Diabetes - Allergies Allergies: Allergies aspirin Allergy (Verified 11/21/17 07:24) RASH vancomycin Adverse Reaction (Verified 02/06/18 08:39) FEVER - Physical Exam Vital Signs: Vital Signs 04/10/18 07:03 Temperature 97.7 F Pulse Rate 71 Respiratory 20 Rate Blood Pressure 118/85 O2 Sat by Pulse 98 Oximetry Neuro: WNL Heart: WNL Lungs: WNL GI: WNL - {Optional Preform as Required} Ortho: Other (left knee incision well healed, no drainage) - Impression Impression: see full consultation. NPO. for aspiration left knee. plan upcoming revision if specimen sterile Pt. Evaluated Today:Candidate for Anesthesia & Procedure: Yes - Date & Time Date: 04/10/18 Time: 09:26 Short Stay Discharge - Short Stay Discharge Admitting Diagnosis/Reason for Visit: Z96.651/ T84.53XA/ Disposition: HOME/ ROUTINE Referrals: Tyree Hunter III, MD [Primary Care Provider] - Past Patient History - Tetanus Immunizations Tetanus Immunization: Unknown - Past Medical History & Family History Past Medical History?: Yes - Past Social History Smoking Status: Never Smoked - PULMONARY Hx Respiratory Disorders: No - NEUROLOGICAL Hx Neurological Disorder: No - HEENT Hx HEENT Problems: No - RENAL Hx Chronic Kidney Disease: No - ENDOCRINE/METABOLIC Hx Endocrine Disorders: Yes (DM) Hx Diabetes Mellitus Type 2: Yes - HEMATOLOGICAL/ONCOLOGICAL Hx Blood Disorders: Yes Hx Blood Transfusions: Yes Hx Blood Transfusion Reaction: No - INTEGUMENTARY Hx Dermatological Problems: No - MUSCULOSKELETAL/RHEUMATOLOGICAL Hx Musculoskeletal Disorders: Yes Hx Arthritis: Yes (hands) Hx Falls: No - GASTROINTESTINAL Hx Gastrointestinal Disorders: No - GENITOURINARY/GYNECOLOGICAL Hx Genitourinary Disorders: No - PSYCHIATRIC Hx Psychophysiologic Disorder: Yes Hx Emotional Abuse: No Hx Physical Abuse: No Hx Substance Use: No Other/Comment: history of alcoholism, sober for years - SURGICAL HISTORY Hx Surgeries: Yes Hx Herniorrhaphy: Yes (bilateral inguinal (3 surgeries)) Hx Joint Replacement: Yes (left knee) Hx Orthopedic Surgery: Yes (left knee replacement 3.5 yr ago and revision ) Other/Comment: Hx varicose veins sx. Hx skin graft on right index finger - ANESTHESIA Hx Anesthesia: Yes Hx Anesthesia Reactions: No Hx Malignant Hyperthermia: No
[2018-04-10 09:29] LABS: FLUID TYPE SYNOVIAL FLUID
[2018-04-10 09:38] VITALS: RESP 18
[2018-04-10 09:42] LABS: SF GROSS APPEARANCE TURBID (CLEAR)
[2018-04-10 09:43] LABS: SYNOVIAL FLUID COMMENT GROSSLY BLOODY
[2018-04-10 10:50] LABS: SF GROSS APPEARANCE BLOODY (CLEAR); SYNOVIAL FLUID COMMENT TURBID
[2018-04-10 11:01] LABS: SYNOVIAL FLUID MONO/MACROPHAGE 18 % (0-0)
[2018-04-10 11:02] LABS: SYNOVIAL FLUID MONO/MACROPHAGE 20 % (0-0)
[2018-04-10] MEDS ORDERED: ERTAPENEM 1 GM IVPB ONE (15:00)
[2018-04-10] MEDS ORDERED: DAPTOmycin 700 MG in Sodium Chloride 0.9% 100 ML IV ONE (15:30)
--- NOTE | 2018-04-10 16:25 | RAD ---
Date of service: 04/10/2018 PROCEDURE: HISTORY: KNEE ARTHROGRAM COMPARISON: None TECHNIQUE: Standard protocol for this study/examination. FINDINGS: Total fluoroscopic time (continuous mode) utilized during the procedure (seconds) 7.3. IMPRESSION: Total exam DLP: 0.37 (mGy)
[2018-04-10 17:09] VITALS: TEMP 97.9; O2SAT 96
[2018-04-10 17:10] VITALS: BP 113/79; PULSE 79
--- NOTE | 2018-04-10 17:19 | PCM.SURG1 ---
Surgeon's Initial Post Op Note - Surgeon's Notes Surgeon: Dale Office Machine Service Supervisor: ELDON Gonzáles Type of Anesthesia: General Endo Anesthesia Administered By: Pre-Operative Diagnosis: s/p septic L TKR (with prostheis explant and insertion of abio impreganted spacer). wound dehiscience distally Operative Findings: wound dehiscience distal wound Post-Operative Diagnosis: as above Operation Performed: incision skin/irrigation, debridemnt and primary closure. aspiration arthrogram L Knee. manipulation L knee under anaesthesia. posiitoning of fluoro/interpretation of video images Specimen/Specimens Removed: skin/ subcutaneous tissue. synovial fluid Estimated Blood Loss: EBL {In ML}: 5 Blood Products Given: N/A Drains Used: No Drains Post-Op Condition: Fair Date of Surgery/Procedure: 04/10/18 Time of Surgery/Procedure: 08:35 (time in room 7:50)
--- NOTE | 2018-04-13 11:33 | OP ---
PROCEDURE DATE: 04/10/2018 OPERATIVE INDICATIONS: The patient is a 62-year-old gentleman who had undergone a successful knee replacement arthroplasty. The patient unfortunately developed a late hematogenous infection, was taken back to Surgery where a thorough irrigation and debridement was accomplished as well as removal of the components and insertion of antibiotic-impregnated spacer. This having been accomplished, the patient had undergone six weeks to the seven weeks of IV antibiotics under the management of Dr. Cameron Mondragon. The patient is admitted at this point in time for aspiration, arthrogram, and evaluation under anesthesia. Pros, cons, risks, and benefits of the surgical aspiration arthrogram were discussed. The possibility of further delay of the reimplantation was discussed. The possibility of mechanical failure, infection, thromboembolic disease, nerve injury was discussed. PREOPERATIVE DIAGNOSES: Status post septic left total knee replacement arthroplasty with explantation of the original prosthesis and insertion of antibiotic-impregnated spacer. POSTOPERATIVE DIAGNOSES: Status post septic left total knee replacement arthroplasty with explantation of the original prosthesis and insertion of antibiotic-impregnated spacer. PROCEDURES: 1. Aspiration arthrogram left knee. 2. Evaluation and manipulation of the knee under anesthesia. 3. Positioning of fluoroscope and interpretation of video images. SURGEON: Tyree Hunter MD BANK BOSS: ROHAN Jules, certified registered nursing behavioral modification assistant. ANESTHESIA: General endotracheal anesthesia. COMPLICATIONS: No complications. DRAINS: No drains. OPERATIVE INDICATIONS: As above. OPERATIVE PROCEDURE: After having obtained informed consent, after having identified side, site and procedure and a critical pause/time-out, after the satisfactory induction of the anesthetic, the patient identified as [place] Hagen in the supine position with all bony prominences well padded, the left lower extremity was prepped and free draped in usual fashion for lower extremity surgery. Under the surgeon's direction, the fluoroscope was positioned, video images were generated, therapeutic decisions were made therefrom. This having been accomplished using an 18-gauge spinal needle after the satisfactory induction of the anesthetic, after evaluating the position of the antibiotic-impregnated spacer on AP and lateral image intensification views, the needle was introduced in a superolateral approach to the suprapatellar pouch. There was an egress of fluid, which was nonpurulent. It was bloody tinged. At this point in time, 30 mL of high opaque radiopaque contrast were introduced into the knee. The initial aspirate was sent for stat Gram stain, number of white cells per high-power field, aerobic, anaerobic, AFB and fungal cultures. After insertion of the radiopaque contrast under the surgeon's direction, the fluoroscope was positioned, video images were generated, therapeutic decisions were made therefrom. Flexion and extension were accomplished and recorded with image intensification views. At this point in time, the radiopaque contrast was aspirated and that is sent down for stat Gram stain, number of white cells per high-power field, aerobic, anaerobic, AP and fungal cultures. Compression dressing was applied. The intraoperative videographs are maintained. It should be noted that incision and drainage of a distal wound dehiscence was accomplished as well using #15 blade. There were two small areas in the distal aspect of incision, which were nonpurulent. The skin incision was carried down through the skin and subcutaneous tissue. At this point in time, the wound was thoroughly irrigated and this was after the aspiration has occurred. Skin and subcutaneous tissue were excised. Irrigation and debridement of the wound with primary closure was accomplished. [place] compression dressing was applied as well as a knee immobilizer. OPERATIVE PROCEDURE: 1. Incision and drainage of the distal wound dehiscence. 2. Excision of skin and subcutaneous tissue. 3. Aspiration arthrogram left knee. 4. Manipulation and evaluation of the left knee under anesthesia. 5. Positioning of fluoroscope and interpretation of video images. The patient left the operating room in stable condition. Cultures to be reviewed and planning for reimplantation will be accomplished with the coordination with the infectious disease heritage consultant, Dr. Mondragon. Tyree Hunter MD
== END 2018-04-10 17:20 | disposition home or self-care (01) ==
LOC: H.OPSURG 06:24
PROVIDERS: ATTEND Orthopaedic Surgery
DX: T84.54XA Infection and inflammatory reaction due to internal left knee prosthesis, initial encounter (principal); E11.9 Type 2 diabetes mellitus without complications; Y83.1 Surgical operation with implant of artificial internal device as the cause of abnormal reaction of the patient, or of later complication, without mention of misadventure at the time of the procedure
CPT/HCPCS: 20610; 27570; 82948; 87015; 87070; 87075; 87101; 87116; 87206; 88304; 89051; 96365; 97161; G8978; G8979; G8980; J0131; J0878; J1040; J1335; J2001; J2250; J2370; J2405; J2704; J2765; J3010; J7030; J7120; Q9967

== ENCOUNTER 2018-04-19 10:41 | Inpatient (IN) | payer BC ==
[2018-04-14 14:26] VITALS: BMI 30.6
[2018-04-19 12:09] LABS: BASO % 0.4 % (0.0-2.0); EOS # 0.1 K/uL (0.0-0.7); EOS % 2.2 % (0.0-4.0); HEMOGLOBIN 13.6 g/dL (12.0-18.0); LYMPH # 1.7 K/uL (1.0-4.3); LYMPH % 30.6 % (20.0-40.0); MEAN CELL VOLUME 83.1 fl (80.0-94.0); MEAN CORPUSCULAR HEMOGLOBIN 27.8 pg (27.0-31.0); MEAN CORPUSCULAR HGB CONC 33.5 g/dL (33.0-37.0); MEAN PLATELET VOLUME 7.9 fl (7.2-11.7); MONO # 0.4 K/uL (0.0-0.8); MONO % 7.3 % (0.0-10.0); NEUT # 3.3 K/uL (1.8-7.0); NEUT % 59.5 % (50.0-75.0); NRBC % 0.1 % (0.0-0.0); RBC 4.91 Mil/uL (4.40-5.90); RED CELL DISTRIBUTION WIDTH 16.3 % (11.5-14.5); WHITE BLOOD COUNT 5.6 K/uL (4.8-10.8)
[2018-04-19] MEDS ORDERED: Gentamicin 80 mg/2mL Inj. ONE (12:13)
[2018-04-19] MEDS ORDERED: Bacitracin Ointment 30 GM TUBE ONE (12:14)
[2018-04-19] MEDS ORDERED: GELATIN SPONGE,ABSORB/PORCINE 1 EACH SPONGE TP ONE (12:14)
[2018-04-19] MEDS ORDERED: ceFAZolin IV 1 gm in Dextrose 2 GM/100 ML BAG IVPB ONE (12:14)
[2018-04-19] MEDS ORDERED: Thrombin Topical 5,000 Int Units Spray Kit ONE (12:14)
[2018-04-19 12:18] LABS: ALB/GLOB RATIO 1.4 (1.0-2.1); ALBUMIN 4.6 g/dL (3.5-5.0); ALT/SGPT 72 U/L (21-72); AST/SGOT 63 U/L (17-59); BLOOD UREA NITROGEN 10 mg/dl (9-20); CALCIUM 9.6 mg/dL (8.4-10.2); GFR AFRICAN-AMERICAN > 60; GFR NON-AFRICAN AMERICAN > 60
--- NOTE | 2018-04-19 12:18 | CP.PCM.CON ---
History of Present Illness - History of Present Illness History of Present Illness: Orthopedic H&P Patient is a 62 y/o male with PMH of NIDDM presents for removal of antibiotic spacer and revision L TKA. The patient has history of L TKA in 2016 and revision L TKA on 11/21/17 for persistent pain. A removal of hardware and placement of antibiotic spacer on 02/06/18 after ooperative cultures resulted positive for infection. He was placed on IV and PO antibiotics infused through LUE PICC managed by ID. On 04/10/18, a sterile aspiration of the knee was performed in the OR and cultures were resulted negative for infection. Currently he has no complaints of pain. He denies CP/SOB/N/V/D/fever/dysuria/ melena. Review of Systems - Review of Systems All systems: reviewed and no additional remarkable complaints except Review of Systems: as per HPI Past Patient History - Tetanus Immunizations Tetanus Immunization: Unknown - Past Medical History & Family History Past Medical History?: Yes Past Family History: Reviewed and not pertinent - Past Social History Smoking Status: Former Smoker Alcohol: None Drugs: Denies - CARDIAC Hx Cardiac Disorders: No - PULMONARY Hx Respiratory Disorders: No - NEUROLOGICAL Hx Neurological Disorder: No - HEENT Hx HEENT Problems: No - RENAL Hx Chronic Kidney Disease: No - ENDOCRINE/METABOLIC Hx Endocrine Disorders: Yes (DM) Hx Diabetes Mellitus Type 2: Yes - HEMATOLOGICAL/ONCOLOGICAL Hx Blood Disorders: Yes Hx Blood Transfusions: Yes Hx Blood Transfusion Reaction: No - INTEGUMENTARY Hx Dermatological Problems: No - MUSCULOSKELETAL/RHEUMATOLOGICAL Hx Musculoskeletal Disorders: Yes Hx Arthritis: Yes (hands) Hx Falls: No - GASTROINTESTINAL Hx Gastrointestinal Disorders: No - GENITOURINARY/GYNECOLOGICAL Hx Genitourinary Disorders: No - PSYCHIATRIC Hx Psychophysiologic Disorder: Yes Hx Emotional Abuse: No Hx Physical Abuse: No Hx Substance Use: No Other/Comment: history of alcoholism, sober for years - SURGICAL HISTORY Hx Surgeries: Yes Hx Herniorrhaphy: Yes (bilateral inguinal (3 surgeries)) Hx Joint Replacement: Yes (left knee) Hx Orthopedic Surgery: Yes (left knee replacement, L revision TKA 11/21/17, L knee antibiotic spacer) Other/Comment: Hx varicose veins sx. Hx skin graft on right index finger picc-line, revision of left knee - ANESTHESIA Hx Anesthesia: Yes Hx Anesthesia Reactions: No Hx Malignant Hyperthermia: No Meds Allergies/Adverse Reactions: Allergies Allergy/AdvReac Type Severity Reaction Status Date / Time aspirin Allergy RASH Verified 04/19/18 12:37 vancomycin AdvReac FEVER Verified 04/19/18 12:37 Physical Exam - Constitutional Appears: Well, No Acute Distress - Head Exam Head Exam: ATRAUMATIC, NORMOCEPHALIC - Eye Exam Eye Exam: EOMI, Normal appearance, PERRL - ENT Exam ENT Exam: Mucous Membranes Moist - Respiratory Exam Respiratory Exam: Clear to Auscultation Bilateral, NORMAL BREATHING PATTERN - Cardiovascular Exam Cardiovascular Exam: REGULAR RHYTHM - GI/Abdominal Exam GI & Abdominal Exam: Normal Bowel Sounds, Soft - Extremities Exam Additional comments: L knee: Knee immobilizer intact, dressings intact TKA wound well healed sensation intact SP/DP/TN motor intact EHL/FHL/TA/G pedal pulses intact comps soft NT - Neurological Exam Neurological exam: Alert, Oriented x3 - Psychiatric Exam Psychiatric exam: Normal Affect, Normal Mood - Skin Skin Exam: Normal Color, Warm Results - Vital Signs Recent Vital Signs: Last Vital Signs Temp 97.5 F L 04/19/18 11:40 Pulse 61 04/19/18 11:40 Resp 20 04/19/18 11:40 BP 132/80 04/19/18 11:40 Pulse Ox 96 04/19/18 11:40 - Labs Result Diagrams: 04/19/18 11:44 04/19/18 11:44 Labs: Laboratory Results - last 24 hr 04/19/18 04/19/18 11:44 11:44 WBC 5.6 RBC 4.91 Hgb 13.6 D Hct 40.8 MCV 83.1 MCH 27.8 MCHC 33.5 RDW 16.3 H Plt Count 162 MPV 7.9 Neut % (Auto) 59.5 Lymph % (Auto) 30.6 [place] % (Auto) 7.3 Eos % (Auto) 2.2 Baso % (Auto) 0.4 Neut # (Auto) 3.3 Lymph # (Auto) 1.7 [place] # (Auto) 0.4 Eos # (Auto) 0.1 Baso # (Auto) 0.0 Crossmatch See Detail BBK History Checked Patient has bt Assessment & Plan (1) Infection associated with internal left knee prosthesis Assessment and Plan: -OR today for removal of left knee antibiotic spacer and revision left TKA -NPO, admit to Hospitalist -Pros/cons/benefits/risks of procedure were explained to the patient in detail. He expresses understanding and agrees to proceed with above procedure. -above d/w Dr. Hunter in agreement Status: Acute
[2018-04-19 12:38] LABS: INR 1.2 (0.9-1.2); PARTIAL THROMBOPLASTIN TIME 29.1 Seconds (25.6-37.1); PROTHROMBIN TIME 12.9 Seconds (9.8-13.1)
--- NOTE | 2018-04-19 12:59 | CP.PCM.HP ---
History of Present Illness - History of Present Illness History of Present Illness: Medicine Consult for clearance patient in Same day surgery for Dr. Hunter CC: Left knee pain - 4th operation for replacement - medicine consulted for management for Medical conditions including DM-2 HPI: 62 years old male with Hx of DM-2, Left TKR in 2016 with operations x 3 as well as 2 aspirations, treated for septic knee left TKR in the past with Vanco and daptomycin. Here for planned OR today with Dr. Hunter for replacement of left Knee. He feels well denies recent illness, no fever, no cough, nausea, vomiting, chest pain, diarrhea, dysuri, no urinary frequency. Denies any chest pain , SOB, palpitations, PND, orthopnea. Complains of chronic pain to left knee especially with ambulation. METS limited by pain of knee. PMHx: DM, arthritis, no HTN, No CT, No Chf, no cva, no ckd, no liver disease, no history of bleeding, no copd PSH: left TKR, left knee aspiration, hernia repairs x 3 (2 inguinal hernias), varcoise veins bilaterally, skin graft R index finger, s/p revision of left knee 10/20 and 11/20 MEDS: reviewed ALL: Aspirin- rash, swells, Vano possible red man syndrome not true allergy FH: denies SH: former smoker (quit 6.5 years ago), has 60pack year history, denies drinking or illicit drug use, lives at home with stairs. Used to drink heavy before - now part of AA Code status; Full Present on Admission - Present on Admission Any Indicators Present on Admission: Yes History of DVT/PE: No History of Uncontrolled Diabetes: Yes Urinary Catheter: No Decubitus Ulcer Present: No History Surgical Site Infection Following: Orthopedic Procedures (left knee) Review of Systems - Review of Systems All systems: reviewed and no additional remarkable complaints except Review of Systems: as noted in HPI Past Patient History - Tetanus Immunizations Tetanus Immunization: Unknown - Past Medical History & Family History Past Medical History?: Yes - Past Social History Smoking Status: Former Smoker Alcohol: Other Drugs: Denies Home Situation {Lives}: With Family - CARDIAC Hx Cardiac Disorders: No - PULMONARY Hx Respiratory Disorders: No - NEUROLOGICAL Hx Neurological Disorder: No - HEENT Hx HEENT Problems: No - RENAL Hx Chronic Kidney Disease: No - ENDOCRINE/METABOLIC Hx Endocrine Disorders: Yes (DM) Hx Diabetes Mellitus Type 2: Yes - HEMATOLOGICAL/ONCOLOGICAL Hx Blood Disorders: Yes - INTEGUMENTARY Hx Dermatological Problems: No - MUSCULOSKELETAL/RHEUMATOLOGICAL Hx Musculoskeletal Disorders: Yes Hx Arthritis: Yes (hands) Hx Falls: No - GASTROINTESTINAL Hx Gastrointestinal Disorders: No - GENITOURINARY/GYNECOLOGICAL Hx Genitourinary Disorders: No - PSYCHIATRIC Hx Emotional Abuse: No Hx Physical Abuse: No - SURGICAL HISTORY Hx Surgeries: Yes Hx Herniorrhaphy: Yes (bilateral inguinal (3 surgeries)) Hx Joint Replacement: Yes (left knee) Hx Orthopedic Surgery: Yes (left knee replacement 3.5 yr ago and revision ) Other/Comment: Hx varicose veins sx. Hx skin graft on right index finger picc-line, revision of left knee. aspiration left knee x2 - ANESTHESIA Hx Anesthesia: Yes Hx Anesthesia Reactions: No Hx Malignant Hyperthermia: No Meds Allergies/Adverse Reactions: Allergies Allergy/AdvReac Type Severity Reaction Status Date / Time aspirin Allergy RASH Verified 04/19/18 12:37 vancomycin AdvReac FEVER Verified 04/19/18 12:37 Physical Exam - Constitutional Appears: Well, Non-toxic, No Acute Distress - Head Exam Head Exam: ATRAUMATIC, NORMAL INSPECTION - Eye Exam Eye Exam: Normal appearance Pupil Exam: PERRL - ENT Exam ENT Exam: Mucous Membranes Dry - Neck Exam Neck exam: Positive for: Normal Inspection - Respiratory Exam Respiratory Exam: Clear to Auscultation Bilateral. absent: Accessory Muscle Use , Rales, Rhonchi, Wheezes, Respiratory Distress, NORMAL BREATHING PATTERN - Cardiovascular Exam Cardiovascular Exam: REGULAR RHYTHM, +S1, +S2. absent: Systolic Murmur - GI/Abdominal Exam GI & Abdominal Exam: Normal Bowel Sounds, Soft. absent: Organomegaly, Rebound, Tenderness - Extremities Exam Extremities exam: Negative for: pedal edema Additional comments: left knee in immobilizer and dressing - Neurological Exam Neurological exam: Alert, Oriented x3 - Psychiatric Exam Psychiatric exam: Normal Affect - Skin Skin Exam: Normal Color Results - Vital Signs Recent Vital Signs: Last Vital Signs Temp 97.5 F L 04/19/18 11:40 Pulse 61 04/19/18 12:29 Resp 20 04/19/18 11:40 BP 132/80 04/19/18 11:40 Pulse Ox 96 04/19/18 11:40 - Labs Result Diagrams: 04/19/18 11:44 04/19/18 11:44 Labs: Laboratory Results - last 24 hr 04/19/18 04/19/18 04/19/18 11:44 11:44 11:44 WBC 5.6 RBC 4.91 Hgb 13.6 D Hct 40.8 MCV 83.1 MCH 27.8 MCHC 33.5 RDW 16.3 H Plt Count 162 MPV 7.9 Neut % (Auto) 59.5 Lymph % (Auto) 30.6 Bacon % (Auto) 7.3 Eos % (Auto) 2.2 Baso % (Auto) 0.4 Neut # (Auto) 3.3 Lymph # (Auto) 1.7 Bacon # (Auto) 0.4 Eos # (Auto) 0.1 Baso # (Auto) 0.0 PT 12.9 INR 1.2 APTT 29.1 Sodium Potassium Chloride Carbon Dioxide Anion Gap BUN Creatinine Est GFR ( Amer) Est GFR (Non-Af Amer) Random Glucose Calcium Total Bilirubin AST ALT Alkaline Phosphatase Total Protein Albumin Globulin Albumin/Globulin Ratio Crossmatch See Detail BBK History Checked Patient has bt 04/19/18 11:44 WBC RBC Hgb Hct MCV MCH MCHC RDW Plt Count MPV Neut % (Auto) Lymph % (Auto) Bacon % (Auto) Eos % (Auto) Baso % (Auto) Neut # (Auto) Lymph # (Auto) Bacon # (Auto) Eos # (Auto) Baso # (Auto) PT INR APTT Sodium 141 Potassium 4.5 Chloride 104 Carbon Dioxide 26 Anion Gap 16 BUN 10 Creatinine 1.0 Est GFR ( Amer) > 60 Est GFR (Non-Af Amer) > 60 Random Glucose 109 Calcium 9.6 Total Bilirubin 2.0 H AST 63 H D ALT 72 D Alkaline Phosphatase 53 Total Protein 7.9 Albumin 4.6 Globulin 3.3 Albumin/Globulin Ratio 1.4 Crossmatch BBK History Checked Assessment & Plan - Assessment and Plan (Free Text) Assessment: HPI: 62 years old male with Hx of DM-2, Left TKR in 2016 with operations x 3 as well as 2 aspirations, treated for septic knee left TKR in the past with Vanco and daptomycin. Here for planned OR today with Dr. Hunter for replacement of left Knee. 1. Patient previously cleared and may continue with OR. Age and DM-2 are risk factors. Mild to Mod risk for OR. patient and at bedside aware. 2. DM-2 - monitor accuchecks post op d5w recommended hold metformin for now 3. Post op dvt proph per Orthopedics.
[2018-04-19] MEDS ORDERED: Bisacodyl 5mg EC Tab PO PRN (13:14)
[2018-04-19] MEDS ORDERED: Dextrose 5%/0.45% NS 1,000 ML IV SCH (13:15)
[2018-04-19] MEDS ORDERED: Ropivacaine 0.5% 30ML IV ONE (13:17)
[2018-04-19] MEDS ORDERED: Lactated Ringer's 1,000 ML IV ONE ×4 (13:20→17:59)
[2018-04-19] MEDS ORDERED: Midazolam 2 MG/2 ML VIAL ONE (13:24)
[2018-04-19] MEDS ORDERED: Lidocaine 1% 5ml Abboject IV ONE (13:24)
[2018-04-19] MEDS ORDERED: Propofol 10 mg/ml Inj (20 ML) ONE (13:24)
[2018-04-19] MEDS ORDERED: Succinylcholine 200 mg/10 ml Inj IV ONE (13:25)
[2018-04-19] MEDS ORDERED: Tranexamic Acid 1,000 MG in Sodium Chloride 0.9% 100 ML IVPB ONE ×2 (13:28→16:00)
[2018-04-19] MEDS ORDERED: Rocuronium 10 mg/ml (5 ml) ONE ×3 (14:15→16:31)
[2018-04-19] MEDS ORDERED: Phenylephrine 10 mg/ml Inj ONE (14:35)
[2018-04-19] MEDS ORDERED: oxyCODONE 10 mg Immediate Release Tab PO PRN (14:47)
[2018-04-19 15:09] LABS: FLUID TYPE SYNOVIAL FLUID
[2018-04-19 15:17] LABS: FLUID TYPE SYNOVIAL FLUID
[2018-04-19 15:27] LABS: FLUID TYPE SYNOVIAL FLUID
[2018-04-19] MEDS ORDERED: Neostigmine 1:1000 (1 mg/ml) Inj ONE (15:32)
--- NOTE | 2018-04-19 15:43 | PCM.ANESB2 ---
Popliteal Nerve Block - Popliteal Nerve Block Date of Procedure: 04/19/18 Anesthesiologist: Dr. Tinajero Pre-Procedure Diagnosis: Revision of left total knee arthroplasty Post-Procedure Diagnosis: Revision of left total knee arthroplasty Procedure Performed: Popliteal Nerve Block Left - Procedure Popliteal Nerve Block: This procedure was explained to the patient that it is for post-operative pain management. Consent was obtained after a thorough discussion with the patient regarding the benefits and possible complications of local anesthetic block of the sciatic nerve at the popliteal level. The patient was brought to the operating room and standard monitors are applied. Time-out was held with the circulating nurse to confirm the correct surgery and the appropriate block. After applying oxygen by nasal cannula and administering IV Sedation, patient's operative leg was gently raised and supported and the groove in between the biceps femoris and vastus lateralis muscles was carefully palpated. The skin approximately 8cm above the popliteal crease was then marked. The ultrasound transducer was then applied to the posterior thigh approximately 8cm above the popliteal crease in the transverse plane and the sciatic nerve before its division was visualized lateral to the popliteal artery and in between the bicep femoris and semimembranosus/semitendinosus muscles. After identification, the lateral portion of the thigh was prepped with Chloraprep solution. At this point, a # 21 gauge Stimuplex insulated 4 inch needle was inserted into pre-marked area and advanced in a perpendicular direction. The needle was inserted above the ultrasound transducer in-plane towards the sciatic nerve in a [id number] direction. Needle advancement was performed carefully under direct ultrasound visualization. Nerve stimulator was used and dorsiflexion of the left foot was elicited at a current of 0.3 MA. After repeated negative aspiration, 2cc of 0.5% Ropivacaine was injected and this was flowed with 18cc of 0.5% Ropivacaine. Under ultrasound guidance the local anesthetics were observed surrounding sciatic nerve . The needle was removed intact and sterile dressing was applied. The patient tolerated the popliteal nerve block well with stable vital signs and was subsequently prepared for the surgery.
[2018-04-19 16:42] LABS: SF GROSS APPEARANCE TURBID (CLEAR)
[2018-04-19 16:43] LABS: SF GROSS APPEARANCE TURBID (CLEAR); SYNOVIAL FLUID COMMENT GROSSLY BLOODY
[2018-04-19 16:44] LABS: SF GROSS APPEARANCE CLOUDY (CLEAR)
[2018-04-19 16:48] LABS: SYNOVIAL FLUID COMMENT COLORLESS
[2018-04-19] MEDS ORDERED: HEMOSTATIC MATRIX 10 ML DIS.NEEDLE TOP ONE (17:35)
[2018-04-19 17:59] LABS: SYNOVIAL FLUID MONO/MACROPHAGE 13 % (0-0)
[2018-04-19] MEDS ORDERED: HYDROmorphone 0.5 mg/0.5 ml ISec IVP PRN (18:06)
[2018-04-19 18:08] LABS: SYNOVIAL FLUID MONO/MACROPHAGE 15 % (0-0)
[2018-04-19] MEDS ORDERED: Lactated Ringer's 1,000 ML IV SCH (18:15)
--- NOTE | 2018-04-19 18:21 | PCM.SURG1 ---
Surgeon's Initial Post Op Note - Surgeon's Notes Surgeon: Dale Management And Budget Analyst: ELDON Gonzáles/2nd didier Pan Type of Anesthesia: General Endo, Block Regional Anesthesia Administered By: DR iSngh Pre-Operative Diagnosis: Septic L TKR- s/p prosthesis explant/insertion of abio imprgnated spacer Operative Findings: resolved sepsis(3 negative gram stains) s/p septic TKR with explant tkr components and insertion of abio impregnated spacer. marked synovitis. posterior capsular contracture. lateral patella retinacular release. excsision skin,subcutaneous tissue and muscle. \ Post-Operative Diagnosis: as above Operation Performed: Revbision L TKR. removal abio impregantesd spacer. Primary repair patella ligament. posterior csapsdular release. lateral patella release. excision sjkin,subcutaneous tissue and muscle. computer navigation Specimen/Specimens Removed: synovium/skin/subcutaneous tissue and muscle. prior abio impregnated spacer Estimated Blood Loss: EBL {In ML}: 150 Blood Products Given: PRBC Drains Used: Wound Vac Date of Surgery/Procedure: 04/19/18 Time of Surgery/Procedure: 14:40 (time in room/anesthesiai indcution rtime 1320)
--- NOTE | 2018-04-19 18:21 | PCM.ANESB3 ---
Femoral Nerve Block - Femoral Nerve Block Date of Procedure: 04/19/18 Anesthesiologist: Nedra Pre-Procedure Diagnosis: Revision Left TKA Post-Procedure Diagnosis: Same Procedure Performed: Femoral Nerve Block Left - Procedure Femoral Nerve Block: The procedure was explained to the patient that it is for the post-operative pain management. Consent was obtained after a thorough discussion with the patient regarding the benefits and possible complications of local anesthetic block of the femoral nerve at the inguinal crease area. The patient was brought to the operating room and standard monitors were applied. Time-out was held with the circulating nurse to confirm the correct surgery and the appropriate block. Under general anesthesia, patient was placed in supine position with fully extended lower extremities and the ____left____ groin exposed. The femoral artery was then carefully palpated. The ultrasound transducer was then applied to this area in the transverse plane and the femoral nerve was visualized lateral to the femoral artery and underneath the fascia iliaca. After thorough identification, the inguinal crease area was prepped with Chloraprep. During scanning, a 2 cm x 1cm echodense structure was seen within a lumen superficial and medial to the femoral vessels. The structure was not compressible and no appreciable flow was seen within the lumen using color Doppler. The location of the structure was marked on the skin. Consultation was sought with Dr. Curran from the Department of Radiology. After reviewing the images taken with the ultrasound, she stated that the structure was most likely a lymph node and was not concerned for deep vein thrombosis. The left groin was again prepped with Chloraprep. At this point, a #22 gauge Stimuplex 2-inch needle was inserted immediately lateral to the femoral artery pulse at the inguinal crease and advanced perpendicularly. The needle was inserted to the ultrasound transducer in-plane towards the femoral nerve in a [id number] direction. Needle advancement was performed carefully under direct ultrasound visualization. Nerve stimulator was used and twitch of the quadriceps muscle was obtained at current of ___0.4__MA. After negative aspiration, __2___cc of _0.5____% ropivacaine was injected and this was followed with ____18__ cc of ___0.5____ % ____ropivacaine . Under ultrasound guidance the local anesthetics were observed spreading below fascia iliaca and around the femoral nerve. The needle was removed intact. The patient had stable vital signs, was conscious and in no apparent distress. The patient tolerated the femoral nerve block well with stable vital signs and was prepared for subsequent surgery. Prior to emergence the marked area of the groin was again visualized with ultrasound. The echodense structure was identified and appeared unchanged from both its preoperative position and appearance.
[2018-04-19 19:38] LABS: SYNOVIAL FLUID MONO/MACROPHAGE 0 % (0-0)
[2018-04-20] MEDS: Sodium Chloride 0.9% 1,000 ML IV SCH ×2 (01:05→01:08)
[2018-04-20] MEDS: ceFAZolin IV 2 gm in Dextrose 2 GM/50 ML BAG IVPB SCH ×2 (01:34→08:23)
[2018-04-20 06:34] LABS: HEMOGLOBIN 11.9 g/dL (12.0-18.0); MEAN CELL VOLUME 83.3 fl (80.0-94.0); MEAN CORPUSCULAR HEMOGLOBIN 28.1 pg (27.0-31.0); MEAN CORPUSCULAR HGB CONC 33.7 g/dL (33.0-37.0); RBC 4.23 Mil/uL (4.40-5.90); RED CELL DISTRIBUTION WIDTH 16.2 % (11.5-14.5)
[2018-04-20 06:51] LABS: ALB/GLOB RATIO 1.3 (1.0-2.1); ALBUMIN 3.4 g/dL (3.5-5.0); ALT/SGPT 55 U/L (21-72); AST/SGOT 39 U/L (17-59); BLOOD UREA NITROGEN 10 mg/dl (9-20); CALCIUM 8.3 mg/dL (8.4-10.2); GFR AFRICAN-AMERICAN > 60; GFR NON-AFRICAN AMERICAN > 60
--- NOTE | 2018-04-20 08:06 | CP.PCM.PN ---
Subjective - Date & Time of Evaluation Date of Evaluation: 04/20/18 Time of Evaluation: 07:15 - Subjective Subjective: Patient seen and examined at bedside comfortable. No complaints of pain due to the active nerve block. No acute events overnight. Objective - Vital Signs/Intake and Output Vital Signs (last 24 hours): Temp Pulse Resp BP Pulse Ox 97.8 F 92 H 16 119/61 94 L 04/20/18 04:18 04/20/18 04:18 04/20/18 04:18 04/20/18 04:18 04/20/18 04:18 Intake and Output: 04/20/18 04/20/18 06:59 18:59 Output Total 790 Balance -790 - Medications Medications: Current Medications Acetaminophen (Tylenol 325mg Tab) 650 mg PO Q6 PRN PRN Reason: Pain, Mild (1-3) Last Admin: 04/19/18 22:27 Dose: 650 mg Acetaminophen (Tylenol 325mg Tab) 975 mg PO Q8 [facility] Last Admin: 04/20/18 01:00 Dose: 975 mg Bisacodyl (Dulcolax) 10 mg PO DAILY PRN PRN Reason: Constipation Cholecalciferol (Vitamin D) 2,000 intlu PO DAILY [facility] Docusate Sodium (Colace) 100 mg PO BID [facility] Enoxaparin Sodium (Lovenox) 40 mg SC DAILY [facility] PRN Reason: Protocol Ferrous Sulfate (Feosol) 325 mg PO BID [facility] Folic Acid (Folic Acid) 1 mg PO DAILY [facility] Dextrose/Sodium Chloride (Dextrose 5%/0.45% Ns 1000 Ml) 1,000 mls @ 60 mls/hr IV .[id number] [facility] Cefazolin Sodium/Dextrose (Ancef Iv 2 Gm Duplex) 2 gm in 50 mls @ 50 mls/hr IVPB Q8 [facility] PRN Reason: Protocol Stop: 04/20/18 09:59 Last Admin: 04/20/18 01:34 Dose: 50 mls/hr Sodium Chloride (Sodium Chloride 0.9%) 1,000 mls @ 100 mls/hr IV .Q10H [facility] Stop: 04/20/18 14:37 Last Admin: 04/20/18 01:08 Dose: Not Given Lactated Ringer's (Lactated Ringer's) 1,000 mls @ 100 mls/hr IV .Q10H [facility] Last Admin: 04/20/18 04:20 Dose: Not Given Morphine Sulfate (Morphine) 2 mg IVP Q4 PRN PRN Reason: Pain, severe (8-10) Multivitamins/Minerals (Therapeutic-M Tab) 1 tab PO DAILY [facility] Ondansetron HCl (Zofran Inj) 4 mg IVP Q6 PRN PRN Reason: Nausea/Vomiting Oxycodone HCl (Oxycodone Immediate Release Tab) 10 mg PO Q4 PRN PRN Reason: Pain, moderate (4-7) Sitagliptin Phosphate (Januvia) 100 mg PO DAILY [facility] - Labs Labs: 04/20/18 05:20 04/20/18 05:20 PT 12.9 Seconds (9.8-13.1) 04/19/18 11:44 INR 1.2 (0.9-1.2) 04/19/18 11:44 APTT 29.1 Seconds (25.6-37.1) 04/19/18 11:44 - Extremities Exam Additional comments: L knee: Knee imm intact, dressings CDI sensation diminished but intact SP/DP/TN 2nd to nerve block motor intact but diminished EHL/FHL/TA/G 2nd to nerve block pedal pulses intact comps soft NT Assessment and Plan (1) Status post revision of total replacement of left knee Assessment & Plan: POD# 1 s/p removal of L knee abx spacer and revision L TKA doing well -pain control, avoid narcotic use -PT/OT WBAT -complete postop abx doses -DVT ppx -Prevena intact, monitor output -orthopedically stable -discharge plan for tomorrow -above d/w Dr. Hunter in agreement Status: Acute
[2018-04-20] MEDS: Cholecalciferol 1,000 INTLU TAB PO SCH (08:36)
[2018-04-20] MEDS: Multivitamin With Minerals Tab PO SCH (08:37)
--- NOTE | 2018-04-20 10:27 | RAD ---
Date of service: 04/19/2018 PROCEDURE: Left Knee Radiographs. HISTORY: Pain. COMPARISON: Left knee portal radiographs 02/06/2018. FINDINGS: BONES: Left shoulder replacement hardware is identified in position replacing apparent antibiotic spacers previously demonstrated. Adequate positioning appears achieved and there is no fracture, subluxation or dislocation appreciated. Skin love are noted anteriorly and postoperative changes are identified in the anterior soft tissues. A surgical drain is identified placed. A small screw component is again seen remaining at the anterior proximal tibia. JOINTS: As above. JOINT EFFUSION: As above. OTHER FINDINGS: None. IMPRESSION: Status post definitive left total knee replacement with hardware in adequate apparent position as discussed above. Postop changes as discussed above anteriorly.
[2018-04-20] MEDS: Enoxaparin 40 mg Syringe SC SCH (12:06)
--- NOTE | 2018-04-20 15:01 | CP.PCM.PN ---
Subjective - Date & Time of Evaluation Date of Evaluation: 04/20/18 Time of Evaluation: 11:15 - Subjective Subjective: Patient seen and examined. No complaint post revision of left TKR. Objective - Vital Signs/Intake and Output Vital Signs (last 24 hours): Temp Pulse Resp BP Pulse Ox 97.8 F 88 18 119/61 93 L 04/20/18 08:26 04/20/18 08:26 04/20/18 08:26 04/20/18 04:18 04/20/18 08:26 Intake and Output: 04/20/18 04/20/18 06:59 18:59 Output Total 790 Balance -790 - Medications Medications: Current Medications Acetaminophen (Tylenol 325mg Tab) 650 mg PO Q6 PRN PRN Reason: Pain, Mild (1-3) Last Admin: 04/19/18 22:27 Dose: 650 mg Acetaminophen (Tylenol 325mg Tab) 975 mg PO Q8 [facility] Last Admin: 04/20/18 08:40 Dose: 975 mg Bisacodyl (Dulcolax) 10 mg PO DAILY PRN PRN Reason: Constipation Cholecalciferol (Vitamin D) 2,000 intlu PO DAILY [facility] Last Admin: 04/20/18 08:36 Dose: 2,000 intlu Docusate Sodium (Colace) 100 mg PO BID [facility] Last Admin: 04/20/18 08:37 Dose: 100 mg Enoxaparin Sodium (Lovenox) 40 mg SC DAILY [facility] PRN Reason: Protocol Last Admin: 04/20/18 12:06 Dose: 40 mg Ferrous Sulfate (Feosol) 325 mg PO BID [facility] Last Admin: 04/20/18 08:37 Dose: 325 mg Folic Acid (Folic Acid) 1 mg PO DAILY [facility] Last Admin: 04/20/18 08:37 Dose: 1 mg Dextrose/Sodium Chloride (Dextrose 5%/0.45% Ns 1000 Ml) 1,000 mls @ 60 mls/hr IV .[id number] [facility] Lactated Ringer's (Lactated Ringer's) 1,000 mls @ 100 mls/hr IV .Q10H [facility] Last Admin: 04/20/18 04:20 Dose: Not Given Morphine Sulfate (Morphine) 2 mg IVP Q4 PRN PRN Reason: Pain, severe (8-10) Multivitamins/Minerals (Therapeutic-M Tab) 1 tab PO DAILY [facility] Last Admin: 04/20/18 08:37 Dose: 1 tab Ondansetron HCl (Zofran Inj) 4 mg IVP Q6 PRN PRN Reason: Nausea/Vomiting Oxycodone HCl (Oxycodone Immediate Release Tab) 10 mg PO Q4 PRN PRN Reason: Pain, moderate (4-7) Sitagliptin Phosphate (Januvia) 100 mg PO DAILY [facility] Last Admin: 04/20/18 08:37 Dose: 100 mg - Labs Labs: 04/20/18 05:20 04/20/18 05:20 PT 12.9 Seconds (9.8-13.1) 04/19/18 11:44 INR 1.2 (0.9-1.2) 04/19/18 11:44 APTT 29.1 Seconds (25.6-37.1) 04/19/18 11:44 - Constitutional Appears: No Acute Distress - Head Exam Head Exam: ATRAUMATIC - Eye Exam Eye Exam: absent: Scleral icterus - ENT Exam ENT Exam: Mucous Membranes Moist - Neck Exam Neck Exam: absent: Meningismus - Respiratory Exam Respiratory Exam: absent: Rales, Rhonchi, Wheezes, Respiratory Distress - Cardiovascular Exam Cardiovascular Exam: REGULAR RHYTHM, +S1, +S2 - GI/Abdominal Exam GI & Abdominal Exam: Soft. absent: Tenderness - Rectal Exam Rectal Exam: Deferred - Extremities Exam Extremities Exam: absent: Normal Inspection (left leg totally wrapped with pau bandage, ALDO drain intact but dry) - Back Exam Back Exam: NORMAL INSPECTION - Neurological Exam Neurological Exam: Alert, Oriented x3 - Psychiatric Exam Psychiatric exam: Normal Affect - Skin Skin Exam: Dry, Intact Assessment and Plan - Assessment and Plan (Free Text) Assessment: 62 yo male with history of DM2 and OA had Left TKR x 3 in 2016 which became septic and was treated with Vanco and Daptomycin. Came back and had revison of TKR and removal of antibiotic spacer on 04/19/18. 1. Post Revision Left TKR drain remained dry PT unable to fully assess patient because of numbness of the left leg for possible DC tomorrow as per ortho depending on PT re-assessment 2. DM-2 BS slightly uncontrolled resume Metformin 1000mg PO q 12hrs Januvia 100mg PO daily 3. DVT prophylaxis Lovenox 40mg SC daily
[2018-04-21 06:22] LABS: HEMOGLOBIN 10.6 g/dL (12.0-18.0); MEAN CELL VOLUME 83.6 fl (80.0-94.0); MEAN CORPUSCULAR HEMOGLOBIN 28.3 pg (27.0-31.0); MEAN CORPUSCULAR HGB CONC 33.8 g/dL (33.0-37.0); RBC 3.75 Mil/uL (4.40-5.90); RED CELL DISTRIBUTION WIDTH 16.8 % (11.5-14.5); WHITE BLOOD COUNT 7.6 K/uL (4.8-10.8)
[2018-04-21 06:46] LABS: BLOOD UREA NITROGEN 13 mg/dl (9-20); CALCIUM 8.5 mg/dL (8.4-10.2); GFR AFRICAN-AMERICAN > 60; GFR NON-AFRICAN AMERICAN > 60
--- NOTE | 2018-04-21 07:28 | OP ---
PROCEDURE DATE: 04/19/2018 PREOPERATIVE DIAGNOSES: Status post septic left total knee replacement with explant of the total knee components and insertion of antibiotic impregnated spacer. POSTOPERATIVE DIAGNOSES: Status post septic left total knee replacement with explant of the total knee components and insertion of antibiotic impregnated spacer with no evidence of residual sepsis. PROCEDURES: 1. Revision total knee replacement, left knee. 2. Primary repair of patellar ligament. 3. Posterior capsular release. 4. Lateral patellar retinacular release. 5. Anterior and posterior synovectomy. 6. Computer navigation. 7. Excision of skin and subcutaneous tissue and muscle. SURGEON: Tyree Hunter MD HYDROELECTRIC SYSTEMS TECHNICIAN: Beatrice Newman, certified registered nursing first responder. SECOND SECONDARY SPECIAL EDUCATION TEACHER: Jocelin Pan PA-C ANESTHESIA: General and regional block anesthesia. ANESTHESIOLOGIST: Farhan Sneed MD COMPLICATIONS: No complications. DRAINS: Prevena wound VAC is employed. BLOOD LOSS: Approximately 135 mL. OPERATIVE INDICATION: German Hagen is a 62-year-old gentleman who underwent a successful total knee replacement arthroplasty. The patient developed a postoperative infection, underwent incision and drainage and removal of components and insertion of antibiotic impregnated spacer. At this point in time, the knee had been aspirated last week. The pros, cons, risks and benefits of replacement arthroplasty were discussed. Possibility of stiffness, mechanical failure, infection, thromboembolic disease, secondary or tertiary surgery was discussed. The patient wished the surgery to be accomplished. OPERATIVE PROCEDURE: After the satisfactory induction of general and regional anesthesia, the patient identified as German Hagen in the supine position with all bony prominences well padded. Left lower extremity was prepped and free draped in usual fashion for lower extremity surgery. It should be noted that during the intubation phase, the patient underwent successful endotracheal intubation. During the regional application under ultrasound control, there was a question of the superficial femoral vein. This was discussed with Radiology. There was no evidence for thrombosis of the superficial femoral vein. This was discussed with Dr. Sneed and with Dr. Marta Curran of Radiology. Because of this, there was a possibility of employing the tourniquet. The tourniquet had been applied, but not yet inflated. After sterilely prepping and draping, after having identified the side, site and procedure and a critical pause/time-out, the patient identified as German Hagen in the supine position, the left lower extremity was exsanguinated using a 6-inch Esmarch bandage, tourniquet which had been applied was inflated to 350 mmHg. At this point in time, initial incision was extended two fingerbreadths distal and two fingerbreadths proximal. Skin incision was carried down through the skin and subcutaneous tissue and some muscle in the vastus medialis. This ellipse of skin was elevated at this point in time. Fluid was identified. A medial arthrotomy was accomplished. The patella was everted. Dissection was carried around posteromedially to the direct head of the semimembranosus tendon, portion of the patellar ligament was elevated. Fluid was sent on three different aliquots for stat Gram stain, number of white cells per high-power field, aerobic, anaerobic, AFB and fungal cultures. This having been accomplished, the cultures were all negative, Gram stain not greater than two white cells per high-power field, and no bacteria. This having been accomplished, the patella was everted. The knee was flexed and the attention was turned to the antibiotic spacers. At this point in time, the tibia was first addressed. The interface between the spacer and the cement was identified and this was carefully developed using an oscillating saw and the Accu-Drive. This having been accomplished, the antibiotic impregnated spacer was removed on the tibial side and using the [employer] computer navigation system, which is accelerometer based, the tibial strut was affixed to the anterior tibia, the sensor was applied and the accelerometer was applied. Cut was set to varus valgus with 0 degrees. There was no evidence of slope in the cut. At this point in time, all cement had been removed from the femur. The tibial cut was accomplished 2 mm below the bony surface using the depth gauge. The cut was found to be acceptable. A 0 degrees varus valgus and 0 degrees anterior and posterior slope. The proximal tibia was sized to a #3 tibial component, reaming was accomplished for the 40 mm peg, the proximal tibia was punched and attention was turned to the femur. At this point in time, there was found to be an exuberant synovitis and anterior and posterior synovectomy was accomplished using the electrocautery. This having been accomplished, the interface again between the prosthesis and the cement was developed using the Accu-Drive and the antibiotic impregnated spacer was removed very expeditiously. Attention was turned to the patella. The patella spacer was removed and the patella was re-cut in a freehand position and sized to a 39 mm Exactech patella. This having been accomplished, attention was turned to the femur. Prior to removal of the antibiotic impregnated spacer, the joint line was established with device on the distal aspect of the femoral component. It was marked on the anterior aspect of the femur. This having been accomplished, the canal was found, exuberant cement was removed and a thorough synovectomy anterior and posterior was accomplished. This having been accomplished, the guide reamer was placed in the canal. The cut is set to 2 degrees of valgus and the joint line was brought down approximately 10 mm medially and 0 laterally. The distal cut was accomplished with 2 degrees of valgus. Anterior and posterior sizing was to #4 femoral component. The distal block was applied. Anterior and posterior osteotomies were accomplished as well as chamfer cuts. At this point in time, there was found to be evidence of a posterior capsular contracture. Posterior capsule was released using the electrocautery and the osteotome. Great care was taken to avoid injury to any neurocirculatory structures. This having been accomplished, the femoral trial was applied. The tibial trial which had been reamed and the proximal tibia having been prepared was placed and the appropriate sized tibial polyethylene was inserted. The patella had been reamed and the femoral trial had been employed. This having been accomplished, the knee was reduced and found to be stable in all planes. The patellofemoral joint was found to be stable as well in flexion and extension. At this point in time, lateral patellar retinacular release was extended and completed. Hemostasis was controlled with the Aquamantys. The femur, tibia, and patella were prepared and #4 stemmed femoral component was cemented. The #3 stemmed tibial tray was cemented with the appropriate size 18 mm polyethylene. The knee was reduced and found to be stable in all planes. It should be noted that no reimplantation was carried out until the Gram stain results were obtained, which revealed that there were no white cells per high-power field. On the stat Gram stain, there was less than 2 white cells per high-power field and no organism seen. Components having been cemented and excess cement debrided and curetted, the wound was thoroughly irrigated, tourniquet was deflated, hemostasis was controlled with the Aquamantys. Primary closure was with #2 FiberWire. It should be noted that the patellar ligament had been elevated and the patellar ligament was repaired using the Arthrex PEEK patellar repair anchor. The aperture was drilled on the posteromedial aspect of the femur, it was punched. The PEEK anchor was introduced. The two suture sets are employed with the knee in extension. The patellar ligament was repaired using the nonabsorbable #2 FiberWire. Patellar ligament repair/reconstruction was excellent. The wound was thoroughly irrigated. Closure was in layers. The arthrotomy was with #2 FiberWire, followed by 0 Vicryl and love for skin. The Prevena wound VAC was applied. The dimensions were measured. The wound VAC was trimmed and the Prevena wound VAC was placed on the anterior aspect of the wound. [place] compression dressing and knee immobilizer was applied. OPERATIVE PROCEDURE: 1. Complex left total knee replacement arthroplasty revision. 2. Repair of patellar ligament. 3. Posterior capsular release. 4. Anterior and posterior synovectomy. 5. Lateral patellar retinacular release. 6. Excision of skin and subcutaneous tissue and muscle. 7. Computer navigation (accelerometer based navigation system, the [employer] system). The operative procedure could not have been achieved without the assistantship of Jocelin STUART and Beatrice Newman. The patient is transferred from the operating table to a stretcher having tolerated the procedure well. Tyree Hunter MD
[2018-04-21] MEDS: Cholecalciferol 1,000 INTLU TAB PO SCH (08:08)
[2018-04-21] MEDS: Enoxaparin 40 mg Syringe SC SCH (08:10)
[2018-04-21] MEDS: Multivitamin With Minerals Tab PO SCH (08:11)
--- NOTE | 2018-04-21 09:19 | CP.PCM.CON ---
History of Present Illness - History of Present Illness History of Present Illness: THE PATIENT IS A 62 YEAR OLD MALE WHO UNDERWENT A LEFT TKR REVISION ON 04/19/18 AND I WAS ASKED TO FOLLOW HIM. HE HAD A LEFT TKR IN 2015 FOR SEVERE OA AND IN NOV 2017 HAD AN INFECTION WITH SURGERY AND IN JANUARY 2018 HAD AN INFECTION WITH HARDWARE REMOVAL AND AN ANTIBIOTIC IMPREGNATED SPACER INSERTION FOLLOWED BY [facility]OT[facility] AND NOW HAD HIS REVISION. HE ALSO HAS TYPE 2 DM. HE DENIES ANY CARDIAC HISTORY, CHEST PAIN OR HYPERTENSION. HE IS AN EX-SMOKER. Past Patient History - Tetanus Immunizations Tetanus Immunization: Unknown - Past Medical History & Family History Past Medical History?: Yes Past Family History: Reviewed and not pertinent - Past Social History Smoking Status: Former Smoker Alcohol: None Drugs: Denies - CARDIAC Hx Cardiac Disorders: No - PULMONARY Hx Respiratory Disorders: No - NEUROLOGICAL Hx Neurological Disorder: No - HEENT Hx HEENT Problems: No - RENAL Hx Chronic Kidney Disease: No - ENDOCRINE/METABOLIC Hx Diabetes Mellitus Type 2: Yes - HEMATOLOGICAL/ONCOLOGICAL Hx Blood Disorders: Yes Hx Blood Transfusions: Yes Hx Blood Transfusion Reaction: No - INTEGUMENTARY Hx Dermatological Problems: No - MUSCULOSKELETAL/RHEUMATOLOGICAL Hx Arthritis: Yes - GASTROINTESTINAL Hx Gastrointestinal Disorders: No - GENITOURINARY/GYNECOLOGICAL Hx Genitourinary Disorders: No - PSYCHIATRIC Hx Psychophysiologic Disorder: Yes Hx Emotional Abuse: No Hx Physical Abuse: No Hx Substance Use: No Other/Comment: history of alcoholism, sober for years - SURGICAL HISTORY Hx Surgeries: Yes Hx Herniorrhaphy: Yes (bilateral inguinal (3 surgeries)) Hx Joint Replacement: Yes (left knee) Hx Orthopedic Surgery: Yes (left knee replacement, L revision TKA 11/21/17, L knee antibiotic spacer) Other/Comment: Hx varicose veins sx. Hx skin graft on right index finger picc-line, revision of left knee - ANESTHESIA Hx Anesthesia: Yes Hx Anesthesia Reactions: No Hx Malignant Hyperthermia: No Meds Allergies/Adverse Reactions: Allergies Allergy/AdvReac Type Severity Reaction Status Date / Time aspirin Allergy RASH Verified 04/19/18 12:37 vancomycin AdvReac FEVER Verified 04/19/18 12:37 - Medications Medications: Current Medications Acetaminophen (Tylenol 325mg Tab) 650 mg PO Q6 PRN PRN Reason: Pain, Mild (1-3) Last Admin: 04/19/18 22:27 Dose: 650 mg Acetaminophen (Tylenol 325mg Tab) 975 mg PO Q8 [facility] Last Admin: 04/21/18 08:12 Dose: 975 mg Bisacodyl (Dulcolax) 10 mg PO DAILY PRN PRN Reason: Constipation Cholecalciferol (Vitamin D) 2,000 intlu PO DAILY [facility] Last Admin: 04/21/18 08:08 Dose: 2,000 intlu Docusate Sodium (Colace) 100 mg PO BID [facility] Last Admin: 04/21/18 08:10 Dose: 100 mg Enoxaparin Sodium (Lovenox) 40 mg SC DAILY [facility] PRN Reason: Protocol Last Admin: 04/21/18 08:10 Dose: 40 mg Ferrous Sulfate (Feosol) 325 mg PO BID [facility] Last Admin: 04/21/18 08:09 Dose: 325 mg Folic Acid (Folic Acid) 1 mg PO DAILY [facility] Last Admin: 04/21/18 08:08 Dose: 1 mg Dextrose/Sodium Chloride (Dextrose 5%/0.45% Ns 1000 Ml) 1,000 mls @ 60 mls/hr IV .[id number] [facility] Lactated Ringer's (Lactated Ringer's) 1,000 mls @ 100 mls/hr IV .Q10H [facility] Last Admin: 04/20/18 04:20 Dose: Not Given Metformin HCl (Glucophage) 1,000 mg PO BIDWM [facility] Last Admin: 04/21/18 08:07 Dose: 1,000 mg Morphine Sulfate (Morphine) 2 mg IVP Q4 PRN PRN Reason: Pain, severe (8-10) Multivitamins/Minerals (Therapeutic-M Tab) 1 tab PO DAILY [facility] Last Admin: 04/21/18 08:11 Dose: 1 tab Ondansetron HCl (Zofran Inj) 4 mg IVP Q6 PRN PRN Reason: Nausea/Vomiting Oxycodone HCl (Oxycodone Immediate Release Tab) 10 mg PO Q4 PRN PRN Reason: Pain, moderate (4-7) Sitagliptin Phosphate (Januvia) 100 mg PO DAILY [facility] Last Admin: 04/21/18 08:10 Dose: 100 mg Physical Exam - Respiratory Exam Respiratory Exam: Clear to Auscultation Bilateral - Cardiovascular Exam Cardiovascular Exam: REGULAR RHYTHM, +S1, +S2 - Extremities Exam Additional comments: RLE NORMAL LLE WITH AN IMMOBILIZER Results - Vital Signs Recent Vital Signs: Last Vital Signs Temp 98.2 F 04/21/18 07:50 Pulse 84 04/21/18 07:50 Resp 19 04/21/18 07:50 BP 113/74 04/21/18 07:50 Pulse Ox 94 L 04/21/18 07:50 - Labs Result Diagrams: 04/21/18 04:00 04/21/18 05:35 Labs: Laboratory Results - last 24 hr 04/19/18 04/19/18 04/19/18 11:45 18:08 22:18 WBC RBC Hgb Hct MCV MCH MCHC RDW Plt Count Sodium Potassium Chloride Carbon Dioxide Anion Gap BUN Creatinine Est GFR ( Amer) Est GFR (Non-Af Amer) POC Glucose (mg/dL) 102 129 H 243 H Random Glucose Calcium 04/20/18 04/20/18 04/20/18 05:26 11:02 15:21 WBC RBC Hgb Hct MCV MCH MCHC RDW Plt Count Sodium Potassium Chloride Carbon Dioxide Anion Gap BUN Creatinine Est GFR ( Amer) Est GFR (Non-Af Amer) POC Glucose (mg/dL) 168 H 181 H 131 H Random Glucose Calcium 04/20/18 04/21/18 04/21/18 21:29 04:00 05:35 WBC 7.6 RBC 3.75 L Hgb 10.6 L Hct 31.3 L MCV 83.6 MCH 28.3 MCHC 33.8 RDW 16.8 H Plt Count 131 Sodium 139 Potassium 4.3 Chloride 103 Carbon Dioxide 26 Anion Gap 14 BUN 13 Creatinine 1.1 Est GFR ( Amer) > 60 Est GFR (Non-Af Amer) > 60 POC Glucose (mg/dL) 125 H Random Glucose 115 H Calcium 8.5 04/21/18 06:11 WBC RBC Hgb Hct MCV MCH MCHC RDW Plt Count Sodium Potassium Chloride Carbon Dioxide Anion Gap BUN Creatinine Est GFR ( Amer) Est GFR (Non-Af Amer) POC Glucose (mg/dL) 116 H Random Glucose Calcium Assessment & Plan - Assessment and Plan (Free Text) Assessment: S/P LEFT TKR REVISION TYPE 2 DM Plan: CONTINUE IV ANTIBIOTICS, JANUVIA, METFORMEN AND LOVENOX FOR REHAB
--- NOTE | 2018-04-21 09:24 | CP.PCM.PN ---
Subjective - Date & Time of Evaluation Date of Evaluation: 04/21/18 Time of Evaluation: 09:23 - Subjective Subjective: Pt states pain is well controlled. TOlerating PT well. No new complaints. Objective - Vital Signs/Intake and Output Vital Signs (last 24 hours): Temp Pulse Resp BP Pulse Ox 98.2 F 84 19 113/74 94 L 04/21/18 07:50 04/21/18 07:50 04/21/18 07:50 04/21/18 07:50 04/21/18 07:50 Intake and Output: 04/21/18 04/21/18 06:59 18:59 Output Total 0 Balance 0 - Medications Medications: Current Medications Acetaminophen (Tylenol 325mg Tab) 650 mg PO Q6 PRN PRN Reason: Pain, Mild (1-3) Last Admin: 04/19/18 22:27 Dose: 650 mg Acetaminophen (Tylenol 325mg Tab) 975 mg PO Q8 [facility] Last Admin: 04/21/18 08:12 Dose: 975 mg Bisacodyl (Dulcolax) 10 mg PO DAILY PRN PRN Reason: Constipation Cholecalciferol (Vitamin D) 2,000 intlu PO DAILY [facility] Last Admin: 04/21/18 08:08 Dose: 2,000 intlu Docusate Sodium (Colace) 100 mg PO BID [facility] Last Admin: 04/21/18 08:10 Dose: 100 mg Enoxaparin Sodium (Lovenox) 40 mg SC DAILY [facility] PRN Reason: Protocol Last Admin: 04/21/18 08:10 Dose: 40 mg Ferrous Sulfate (Feosol) 325 mg PO BID [facility] Last Admin: 04/21/18 08:09 Dose: 325 mg Folic Acid (Folic Acid) 1 mg PO DAILY [facility] Last Admin: 04/21/18 08:08 Dose: 1 mg Dextrose/Sodium Chloride (Dextrose 5%/0.45% Ns 1000 Ml) 1,000 mls @ 60 mls/hr IV .[id number] [facility] Lactated Ringer's (Lactated Ringer's) 1,000 mls @ 100 mls/hr IV .Q10H [facility] Last Admin: 04/20/18 04:20 Dose: Not Given Metformin HCl (Glucophage) 1,000 mg PO BIDWM [facility] Last Admin: 04/21/18 08:07 Dose: 1,000 mg Morphine Sulfate (Morphine) 2 mg IVP Q4 PRN PRN Reason: Pain, severe (8-10) Multivitamins/Minerals (Therapeutic-M Tab) 1 tab PO DAILY [facility] Last Admin: 04/21/18 08:11 Dose: 1 tab Ondansetron HCl (Zofran Inj) 4 mg IVP Q6 PRN PRN Reason: Nausea/Vomiting Oxycodone HCl (Oxycodone Immediate Release Tab) 10 mg PO Q4 PRN PRN Reason: Pain, moderate (4-7) Sitagliptin Phosphate (Januvia) 100 mg PO DAILY [facility] Last Admin: 04/21/18 08:10 Dose: 100 mg - Labs Labs: 04/21/18 04:00 04/21/18 05:35 PT 12.9 Seconds (9.8-13.1) 04/19/18 11:44 INR 1.2 (0.9-1.2) 04/19/18 11:44 APTT 29.1 Seconds (25.6-37.1) 04/19/18 11:44 - Extremities Exam Additional comments: LLE: prevena intact, +ROM ankle/toes, sensation intact, +DP/PT pulses calves soft NT neg homans, prevena intact, functioning Assessment and Plan (1) Status post revision of total replacement of left knee Assessment & Plan: POD#2 s/p revision TKR PT/OT vTE proph plan for TCU placement d/w Dr. Hunter, agrees withlyndsay [email or web address] Status: Acute (2) Acute blood loss anemia Assessment & Plan: monitor h/h Status: Acute (3) Vitamin D deficiency Assessment & Plan: supp Status: Acute
--- NOTE | 2018-04-21 13:56 | CP.PCM.DIS ---
Provider - Provider Date of Admission: 04/19/18 14:35 Attending physician: Angelic Pichardo MD Primary care physician: Tyree Hunter III, MD Consults: Dr Dale Verde Time Spent in preparation of Discharge (in minutes): 25 Diagnosis - Discharge Diagnosis (1) Status post revision of total replacement of left knee Status: Acute Comment: pain tolerable and able to have relief with just Tylenol. did not want to take anything stronger (2) DM type 2 (diabetes mellitus, type 2) Status: Chronic Comment: BS controlled. continue Metformin and [facility] [place] [facility] Course - Lab Results Lab Results: Micro Results 04/19/18 17:46 Knee - Left Gram Stain - Final 04/19/18 17:46 Knee - Left Anaerobic Culture - Final NO ANAEROBES ISOLATED. 04/19/18 17:46 Knee - Left Wound Culture - Preliminary No growth. 04/19/18 15:00 Body Fluid - Knee-Left Anaerobic Culture - Final NO ANAEROBES ISOLATED. 04/19/18 15:00 Body Fluid - Knee-Left Body Fluid Culture - Preliminary NO GROWTH AFTER 2 DAYS 04/19/18 15:15 Body Fluid - Knee-Left Anaerobic Culture - Final NO ANAEROBES ISOLATED. 04/19/18 15:15 Body Fluid - Knee-Left Body Fluid Culture - Preliminary NO GROWTH AFTER 2 DAYS 04/19/18 15:00 Body Fluid - Knee-Left Anaerobic Culture - Final NO ANAEROBES ISOLATED. 04/19/18 15:00 Body Fluid - Knee-Left Body Fluid Culture - Preliminary NO GROWTH AFTER 2 DAYS 04/19/18 17:46 Knee - Left Gram Stain - Final 04/19/18 17:46 Knee - Left Wound Culture - Preliminary No growth. 04/19/18 17:46 Knee - Left Gram Stain - Final 04/19/18 17:46 Knee - Left Wound Culture - Preliminary No growth. 04/19/18 17:46 Knee - Left Gram Stain - Final 04/19/18 17:46 Knee - Left Wound Culture - Preliminary No growth. 04/19/18 17:46 Knee - Left Gram Stain - Final 04/19/18 17:46 Knee - Left Wound Culture - Preliminary No growth. 04/19/18 17:46 Knee - Left Gram Stain - Final 04/19/18 17:46 Knee - Left Wound Culture - Preliminary No growth. 04/19/18 17:46 Knee - Left Gram Stain - Final 04/19/18 17:46 Knee - Left Wound Culture - Preliminary No growth. 04/19/18 17:46 Knee - Left Gram Stain - Final 04/19/18 17:46 Knee - Left Wound Culture - Preliminary No growth. 04/19/18 15:00 Other: Please Indicate Fungal Culture - Preliminary 04/19/18 15:00 Other: Please Indicate Mycobacterial Culture - Preliminary 04/19/18 15:15 Other: Please Indicate Mycobacterial Culture - Preliminary 04/19/18 15:15 Other: Please Indicate Mycobacterial Culture - Preliminary 04/19/18 15:15 Body Fluid - Knee-Left Fungal Culture - Preliminary 04/19/18 15:15 Body Fluid - Knee-Left Fungal Culture - Preliminary Most Recent Lab Values WBC 7.6 K/uL (4.8-10.8) 04/21/18 04:00 RBC 3.75 Mil/uL (4.40-5.90) L 04/21/18 04:00 Hgb 10.6 g/dL (12.0-18.0) L 04/21/18 04:00 Hct 31.3 % (35.0-51.0) L 04/21/18 04:00 MCV 83.6 fl (80.0-94.0) 04/21/18 04:00 MCH 28.3 pg (27.0-31.0) 04/21/18 04:00 MCHC 33.8 g/dL (33.0-37.0) 04/21/18 04:00 RDW 16.8 % (11.5-14.5) H 04/21/18 04:00 Plt Count 131 K/uL (130-400) 04/21/18 04:00 MPV 7.9 fl (7.2-11.7) 04/19/18 11:44 Neut % (Auto) 59.5 % (50.0-75.0) 04/19/18 11:44 Lymph % (Auto) 30.6 % (20.0-40.0) 04/19/18 11:44 Lewis % (Auto) 7.3 % (0.0-10.0) 04/19/18 11:44 Eos % (Auto) 2.2 % (0.0-4.0) 04/19/18 11:44 Baso % (Auto) 0.4 % (0.0-2.0) 04/19/18 11:44 Neut # (Auto) 3.3 K/uL (1.8-7.0) 04/19/18 11:44 Lymph # (Auto) 1.7 K/uL (1.0-4.3) 04/19/18 11:44 Lewis # (Auto) 0.4 K/uL (0.0-0.8) 04/19/18 11:44 Eos # (Auto) 0.1 K/uL (0.0-0.7) 04/19/18 11:44 Baso # (Auto) 0.0 K/uL (0.0-0.2) 04/19/18 11:44 PT 12.9 Seconds (9.8-13.1) 04/19/18 11:44 INR 1.2 (0.9-1.2) 04/19/18 11:44 APTT 29.1 Seconds (25.6-37.1) 04/19/18 11:44 Sodium 139 mmol/l (132-148) 04/21/18 05:35 Potassium 4.3 MMOL/L (3.6-5.0) 04/21/18 05:35 Chloride 103 mmol/L (98-107) 04/21/18 05:35 Carbon Dioxide 26 mmol/L (22-30) 04/21/18 05:35 Anion Gap 14 (10-20) 04/21/18 05:35 BUN 13 mg/dl (9-20) 04/21/18 05:35 Creatinine 1.1 mg/dl (0.8-1.5) 04/21/18 05:35 Est GFR ( Amer) > 60 04/21/18 05:35 Est GFR (Non-Af Amer) > 60 04/21/18 05:35 POC Glucose (mg/dL) 119 mg/dL (65-110) H 04/21/18 10:52 Random Glucose 115 mg/dL (75-110) H 04/21/18 05:35 Calcium 8.5 mg/dL (8.4-10.2) 04/21/18 05:35 Total Bilirubin 1.5 mg/dl (0.2-1.3) H 04/20/18 05:20 AST 39 U/L (17-59) 04/20/18 05:20 ALT 55 U/L (21-72) 04/20/18 05:20 Alkaline Phosphatase 41 U/L (38-126) 04/20/18 05:20 Total Protein 6.0 G/DL (6.3-8.2) L 04/20/18 05:20 Albumin 3.4 g/dL (3.5-5.0) L D 04/20/18 05:20 Globulin 2.6 gm/dL (2.2-3.9) 04/20/18 05:20 Albumin/Globulin Ratio 1.3 (1.0-2.1) 04/20/18 05:20 Fluid Type Synovial fluid 04/19/18 15:15 Synovial WBC 75.0 /mm3 (0.0-150.0) 04/19/18 15:15 Synovial RBC 657.0 /mm3 (0.0-0.0) H 04/19/18 15:15 Synovial Neutrophils 2.0 % (0-0) H 04/19/18 15:15 Synovial Lymphocytes 3.0 % (0-0) H 04/19/18 15:15 Synov Monos/Macrophage 0 % (0-0) 04/19/18 15:15 Synovial Fluid Comment Colorless 04/19/18 15:15 Blood Type A POSITIVE 04/19/18 11:44 Antibody Screen Negative 04/19/18 11:44 Crossmatch See Detail 04/19/18 11:44 BBK History Checked Patient has bt 04/19/18 11:44 - Hospital Course Hospital Course: 62 yo male with history of DM2 and OA had Left TKR x 3 in 2016 which became septic and was treated with Vanco and Daptomycin. Came back and had revison of TKR and removal of antibiotic spacer on 04/19/18. Patient did well post op and now will be transfer to TCU for continuation of PT/OT Discharge Exam - Head Exam Head Exam: ATRAUMATIC - Eye Exam Eye Exam: absent: Scleral icterus - ENT Exam ENT Exam: Mucous Membranes Moist - Respiratory Exam Respiratory Exam: absent: Rales, Rhonchi, Wheezes, Respiratory Distress - Cardiovascular Exam Cardiovascular Exam: REGULAR RHYTHM, +S1, +S2 - GI/Abdominal Exam GI & Abdominal Exam: Soft. absent: Tenderness - Rectal Exam Rectal Exam: Deferred - Neurological Exam Neurological exam: Alert, Oriented x3 - Psychiatric Exam Psychiatric exam: Normal Affect - Skin Skin Exam: Dry, Intact Discharge Plan - Follow Up Plan Condition: GOOD Disposition: REHAB FACILITY/REHAB UNIT Instructions: Total Knee Replacement (DC) Referrals: Tryee Hunter III, MD [Primary Care Provider] -
[2018-04-21 15:57] VITALS: BP 108/73; PULSE 98; RESP 18; TEMP 99.3; O2SAT 95
== END 2018-04-21 16:11 | DRG 467 ==
LOC: H.OPSURG 10:41 → H.MEDSURG1 14:35
PROVIDERS: ADMIT Internal Medicine; ATTEND Internal Medicine
PROC: 3E0T33Z Introduction of Anti-inflammatory into Peripheral Nerves and Plexi, Percutaneous Approach (ICD-10-PCS; 2018-04-19)
PROC: 30233N1 Transfusion of Nonautologous Red Blood Cells into Peripheral Vein, Percutaneous Approach (ICD-10-PCS; 2018-04-19)
PROC: 0SRD0J9 Replacement of Left Knee Joint with Synthetic Substitute, Cemented, Open Approach (ICD-10-PCS; principal; 2018-04-19 13:30)
PROC: 0SPD08Z Removal of Spacer from Left Knee Joint, Open Approach (ICD-10-PCS; 2018-04-19 13:30)
PROC: 3E0T3BZ Introduction of Anesthetic Agent into Peripheral Nerves and Plexi, Percutaneous Approach (ICD-10-PCS; 2018-04-19 13:30)
DX: Z47.33 Aftercare following explantation of knee joint prosthesis (principal); D62 Acute posthemorrhagic anemia; F10.21 Alcohol dependence, in remission; E11.65 Type 2 diabetes mellitus with hyperglycemia; G89.29 Other chronic pain; Z96.652 Presence of left artificial knee joint; E55.9 Vitamin D deficiency, unspecified; Z79.84 Long term (current) use of oral hypoglycemic drugs; Z87.891 Personal history of nicotine dependence; Z88.6 Allergy status to analgesic agent; Z88.1 Allergy status to other antibiotic agents

== ENCOUNTER 2018-04-21 15:44 | Inpatient (IN) | payer BC ==
[2018-04-14 14:26] VITALS: BMI 30.6
[2018-04-21] MEDS ORDERED: DAPTOmycin 500 mg Inj (Cubicin) IVP SCH (16:30)
--- NOTE | 2018-04-21 16:36 | CP.PCM.PN ---
Subjective - Date & Time of Evaluation Date of Evaluation: 04/21/18 Time of Evaluation: 16:20 - Subjective Subjective: I D NOTE PATIENT SEEN,CARE DISCUSSED c HIM HAVE RESTARTED DAPTOMYCIN/ERTAPENEM Objective - Medications Medications: Current Medications Daptomycin (Cubicin) 670 mg 6 mg/kg (670 mg) IVP Q24H [facility] PRN Reason: Protocol Stop: 04/26/18 16:31 Ertapenem 1 gm/ Sodium (Chloride) 100 mls @ 100 mls/hr IVPB DAILY [facility] PRN Reason: Protocol
[2018-04-21 16:38] VITALS: RESP 20
[2018-04-21] MEDS ORDERED: Bisacodyl 5mg EC Tab PO PRN (16:45)
[2018-04-21] MEDS: DAPTOmycin 670 MG in Sodium Chloride 0.9% 100 ML IV SCH (22:01)
[2018-04-22] MEDS: Enoxaparin 40 mg Syringe SC SCH (08:15)
[2018-04-22] MEDS: Cholecalciferol 1,000 INTLU TAB PO SCH (08:17)
[2018-04-22] MEDS: Multivitamin With Minerals Tab PO SCH (08:17)
[2018-04-22] MEDS ORDERED: MULTIVITAMIN PO SCH (09:00)
--- NOTE | 2018-04-22 11:39 | CP.PCM.PN ---
Subjective - Date & Time of Evaluation Date of Evaluation: 04/22/18 Time of Evaluation: 11:20 - Subjective Subjective: S-pt cmfortable at time of eval Objective - Vital Signs/Intake and Output Vital Signs (last 24 hours): Temp Pulse Resp BP Pulse Ox 97.7 F 80 20 104/75 96 04/22/18 08:24 04/22/18 08:24 04/22/18 08:24 04/22/18 08:24 04/22/18 08:24 - Medications Medications: Current Medications Acetaminophen (Tylenol 325mg Tab) 650 mg PO Q6 PRN PRN Reason: Pain, Mild (1-3) Acetaminophen (Tylenol 325mg Tab) 975 mg PO Q8 [facility] Last Admin: 04/22/18 08:15 Dose: 975 mg Bisacodyl (Dulcolax) 10 mg PO DAILY PRN PRN Reason: Constipation Cholecalciferol (Vitamin D) 2,000 intlu PO DAILY [facility] Last Admin: 04/22/18 08:17 Dose: 2,000 intlu Docusate Sodium (Colace) 100 mg PO BID [facility] Last Admin: 04/22/18 08:16 Dose: 100 mg Enoxaparin Sodium (Lovenox) 40 mg SC DAILY [facility] PRN Reason: Protocol Last Admin: 04/22/18 08:15 Dose: 40 mg Ferrous Sulfate (Feosol) 325 mg PO BID [facility] Last Admin: 04/22/18 08:16 Dose: 325 mg Folic Acid (Folic Acid) 1 mg PO DAILY [facility] Last Admin: 04/22/18 08:16 Dose: 1 mg Daptomycin 670 mg/ Sodium (Chloride) 100 mls @ 100 mls/hr IV DAILY@2100 [facility] Stop: 04/26/18 21:01 Last Admin: 04/21/18 22:01 Dose: 100 mls/hr Ertapenem 1 gm/ Sodium (Chloride) 100 mls @ 100 mls/hr IVPB DAILY@1700 [facility] PRN Reason: Protocol Metformin HCl (Glucophage) 1,000 mg PO BID [facility] Last Admin: 04/22/18 08:16 Dose: 1,000 mg Multivitamins/Minerals (Therapeutic-M Tab) 1 tab PO DAILY [facility] Last Admin: 04/22/18 08:17 Dose: 1 tab Sitagliptin Phosphate (Januvia) 100 mg PO DAILY [facility] Last Admin: 04/22/18 08:16 Dose: 100 mg - Additional Findings Additional findings: Systemic O/E systemic exam wnl Musculoskekletal stance/gait- deferred L knee immobilizer intact orthopedicallys atble No evidence for local or systemic sepsis Assessment and Plan - Assessment and Plan (Free Text) Assessment: A- s/p Revision L TKR P- Dr Yrn longkt read and appreciated IV abios per DR Mondragon
--- NOTE | 2018-04-22 13:51 | CP.PCM.HP ---
History of Present Illness - History of Present Illness History of Present Illness: This is a 62 yo male with history of DM2 and OA had Left TKR x 3 in 2016 which became septic and was treated with Vanco and Daptomycin. Came back and had revison of TKR and removal of antibiotic spacer on 04/19/18. Patient did well post op and was transferred to TCU yesterday for continuation of PT/OT. This morning, the patient tolerated PT well. He states that his pain ranges from 1-3 on a pain scale and is controlled with medication. No new events overnight. Patient denies chest pain, shortness of breath, fevers, chills, nausea, vomiting , diarrhea, headache. All of the patient's and/or family's questions were answered at the bedside. PMHx: DM, arthritis, no HTN, No MS, No Chf, no cva, no ckd, no liver disease, no history of bleeding, no copd PSH: left TKR, left knee aspiration, hernia repairs x 3 (2 inguinal hernias), varcoise veins bilaterally, skin graft R index finger, s/p revision of left knee 10/20 and 11/20 MEDS: reviewed ALL: Aspirin- rash, swells, Vano possible red man syndrome not true allergy FH: denies SH: former smoker (quit 6.5 years ago), has 60pack year history, denies drinking or illicit drug use, lives at home with stairs. Used to drink heavy before - now part of AA Code status; Full Present on Admission - Present on Admission Any Indicators Present on Admission: No Review of Systems - Review of Systems Review of Systems: A 12 point review of systems was conducted and found to be negative other than what was mentioned in the HPI. Past Patient History - Infectious Disease Hx of Infectious Diseases: None - Tetanus Immunizations Tetanus Immunization: Unknown - Past Medical History & Family History Past Medical History?: Yes - Past Social History Smoking Status: Former Smoker - CARDIAC Hx Cardiac Disorders: No - PULMONARY Hx Respiratory Disorders: No - NEUROLOGICAL Hx Neurological Disorder: No - HEENT Hx HEENT Problems: No - RENAL Hx Chronic Kidney Disease: No - ENDOCRINE/METABOLIC Hx Diabetes Mellitus Type 2: Yes - HEMATOLOGICAL/ONCOLOGICAL Hx Blood Disorders: Yes Hx Blood Transfusions: Yes Hx Blood Transfusion Reaction: No - INTEGUMENTARY Hx Dermatological Problems: No - MUSCULOSKELETAL/RHEUMATOLOGICAL Hx Arthritis: Yes Hx Falls: No - GASTROINTESTINAL Hx Gastrointestinal Disorders: No - GENITOURINARY/GYNECOLOGICAL Hx Genitourinary Disorders: No - PSYCHIATRIC Hx Psychophysiologic Disorder: Yes Hx Emotional Abuse: No Hx Physical Abuse: No Hx Substance Use: No Other/Comment: history of alcoholism, sober for years - SURGICAL HISTORY Hx Surgeries: Yes Hx Herniorrhaphy: Yes (bilateral inguinal (3 surgeries)) Hx Joint Replacement: Yes (left knee) Hx Orthopedic Surgery: Yes (left knee replacement, L revision TKA 11/21/17, L knee antibiotic spacer) Other/Comment: Hx varicose veins sx. Hx skin graft on right index finger picc-line, revision of left knee. s/p left knee revision 04/19/18 - ANESTHESIA Hx Anesthesia: Yes Hx Anesthesia Reactions: No Hx Malignant Hyperthermia: No Meds Allergies/Adverse Reactions: Allergies Allergy/AdvReac Type Severity Reaction Status Date / Time aspirin Allergy RASH Verified 04/21/18 16:23 vancomycin AdvReac FEVER Verified 04/21/18 16:23 Physical Exam - Additional Findings Additional findings: Physical exam: Constitutional- cooperative, awake, alert Head- NCAT, PERRL Eye- PERRL, EOMI ENT- normal exam, MMM. Neck- normal inspection, supple, no JVD Respiratory- CTAB, no wheezes rales rhonchi Cardiovascular- RRR, +S1, +S2 no MRG GI/Abdominal- normal bowel sounds, soft, no mass, no hsm Skin- warm, dry Extremities Exam- + Limited ROM of left knee, dressing intact. normal capillary refill, normal inspection Neurological Exam- alert, awake, oriented Psych- normal mood, normal affect Results - Vital Signs Recent Vital Signs: Last Vital Signs Temp 97.7 F 04/22/18 08:24 Pulse 80 04/22/18 08:24 Resp 20 04/22/18 08:24 BP 104/75 04/22/18 08:24 Pulse Ox 96 04/22/18 08:24 - Labs Labs: Laboratory Results - last 24 hr 04/21/18 04/22/18 04/22/18 20:51 05:30 05:47 POC Glucose (mg/dL) 109 120 H Total Creatine Kinase 69 Assessment & Plan - Assessment and Plan (Free Text) Plan: This is a 62 yo male with history of DM2 and OA had Left TKR x 3 in 2015 which became septic and was treated with Vanco and Daptomycin. Came back and had revison of TKR and removal of antibiotic spacer on 04/19/18. Patient did well post op and was transferred to TCU yesterday for continuation of PT/OT. (1) Status post revision of total replacement of left knee, with hx wound infection Status: Acute - Admit to TCU for further PT/OT - Consultation with Dr. Mondragon for antibiotic guidance- continuing Daptomycin and Ertapenem - Consult Dr. Hunter for follow up care - Consult Dr. Phillips for physiatry Comment: pain tolerable and able to have relief with just Tylenol. did not want to take anything stronger (2) DM type 2 (diabetes mellitus, type 2) Status: Chronic Comment: BS controlled. continue Metformin and Januvia (3) DVT prophylaxis - Lovenox 40 mg sc daily
[2018-04-22] MEDS: DAPTOmycin 670 MG in Sodium Chloride 0.9% 100 ML IV SCH (22:29)
[2018-04-23] MEDS: Enoxaparin 40 mg Syringe SC SCH (08:39)
[2018-04-23] MEDS: Cholecalciferol 1,000 INTLU TAB PO SCH (08:40)
[2018-04-23] MEDS: Multivitamin With Minerals Tab PO SCH (08:41)
--- NOTE | 2018-04-23 19:27 | CP.PCM.CON ---
History of Present Illness - History of Present Illness History of Present Illness: 62 year old male admitted after revision of left total knee replacement, status post infection, now for rehab, history of OA, DM Review of Systems - Musculoskeletal Musculoskeletal: Muscle Weakness Past Patient History - Infectious Disease Hx of Infectious Diseases: None - Tetanus Immunizations Tetanus Immunization: Unknown - Past Medical History & Family History Past Medical History?: Yes - Past Social History Smoking Status: Former Smoker - CARDIAC Hx Cardiac Disorders: No - PULMONARY Hx Respiratory Disorders: No - NEUROLOGICAL Hx Neurological Disorder: No - HEENT Hx HEENT Problems: No - RENAL Hx Chronic Kidney Disease: No - ENDOCRINE/METABOLIC Hx Diabetes Mellitus Type 2: Yes - HEMATOLOGICAL/ONCOLOGICAL Hx Blood Disorders: Yes Hx Blood Transfusions: Yes Hx Blood Transfusion Reaction: No - INTEGUMENTARY Hx Dermatological Problems: No - MUSCULOSKELETAL/RHEUMATOLOGICAL Hx Arthritis: Yes Hx Falls: No - GASTROINTESTINAL Hx Gastrointestinal Disorders: No - GENITOURINARY/GYNECOLOGICAL Hx Genitourinary Disorders: No - PSYCHIATRIC Hx Psychophysiologic Disorder: Yes Hx Emotional Abuse: No Hx Physical Abuse: No Hx Substance Use: No Other/Comment: history of alcoholism, sober for years - SURGICAL HISTORY Hx Surgeries: Yes Hx Herniorrhaphy: Yes (bilateral inguinal (3 surgeries)) Hx Joint Replacement: Yes (left knee) Hx Orthopedic Surgery: Yes (left knee replacement, L revision TKA 11/21/17, L knee antibiotic spacer) Other/Comment: Hx varicose veins sx. Hx skin graft on right index finger picc-line, revision of left knee. s/p left knee revision 04/19/18 - ANESTHESIA Hx Anesthesia: Yes Hx Anesthesia Reactions: No Hx Malignant Hyperthermia: No Meds Allergies/Adverse Reactions: Allergies Allergy/AdvReac Type Severity Reaction Status Date / Time aspirin Allergy RASH Verified 04/21/18 16:23 vancomycin AdvReac FEVER Verified 04/21/18 16:23 - Medications Medications: Current Medications Acetaminophen (Tylenol 325mg Tab) 650 mg PO Q6 PRN PRN Reason: Pain, Mild (1-3) Acetaminophen (Tylenol 325mg Tab) 975 mg PO Q8 [facility] Last Admin: 04/23/18 17:09 Dose: Not Given Bisacodyl (Dulcolax) 10 mg PO DAILY PRN PRN Reason: Constipation Cholecalciferol (Vitamin D) 2,000 intlu PO DAILY [facility] Last Admin: 04/23/18 08:40 Dose: 2,000 intlu Docusate Sodium (Colace) 100 mg PO BID [facility] Last Admin: 04/23/18 16:47 Dose: 100 mg Enoxaparin Sodium (Lovenox) 40 mg SC DAILY [facility] PRN Reason: Protocol Last Admin: 04/23/18 08:39 Dose: 40 mg Ferrous Sulfate (Feosol) 325 mg PO BID [facility] Last Admin: 04/23/18 17:41 Dose: 325 mg Folic Acid (Folic Acid) 1 mg PO DAILY [facility] Last Admin: 04/23/18 08:41 Dose: 1 mg Daptomycin 670 mg/ Sodium (Chloride) 100 mls @ 100 mls/hr IV DAILY@2100 [facility] Stop: 04/26/18 21:01 Last Admin: 04/22/18 22:29 Dose: 100 mls/hr Ertapenem 1 gm/ Sodium (Chloride) 100 mls @ 100 mls/hr IVPB DAILY@1700 [facility] PRN Reason: Protocol Last Admin: 04/23/18 16:46 Dose: 100 mls/hr Metformin HCl (Glucophage) 1,000 mg PO BID [facility] Last Admin: 04/23/18 16:49 Dose: 1,000 mg Multivitamins/Minerals (Therapeutic-M Tab) 1 tab PO DAILY [facility] Last Admin: 04/23/18 08:41 Dose: 1 tab Sitagliptin Phosphate (Januvia) 100 mg PO DAILY [facility] Last Admin: 04/23/18 08:40 Dose: 100 mg Physical Exam - Head Exam Head Exam: ATRAUMATIC, NORMAL INSPECTION, NORMOCEPHALIC - Eye Exam Eye Exam: EOMI, Normal appearance Pupil Exam: NORMAL ACCOMODATION, PERRL - ENT Exam ENT Exam: Mucous Membranes Moist, Normal Exam - Neck Exam Neck exam: Positive for: Normal Inspection - Respiratory Exam Respiratory Exam: Clear to Auscultation Bilateral, NORMAL BREATHING PATTERN - Cardiovascular Exam Cardiovascular Exam: REGULAR RHYTHM - GI/Abdominal Exam GI & Abdominal Exam: Normal Bowel Sounds, Soft - Rectal Exam Rectal Exam: NORMAL INSPECTION - Exam External exam: NORMAL EXTERNAL EXAM - Extremities Exam Extremities exam: Positive for: normal inspection Additional comments: left leg weakness - Back Exam Back exam: NORMAL INSPECTION - Neurological Exam Neurological exam: Alert, CN II-XII Intact - Psychiatric Exam Psychiatric exam: Normal Affect, Normal Mood - Skin Skin Exam: Dry, Normal Color Results - Vital Signs Recent Vital Signs: Last Vital Signs Temp 97.7 F 04/23/18 16:39 Pulse 83 04/23/18 08:39 Resp 20 04/23/18 16:39 BP 97/78 L 04/23/18 16:39 Pulse Ox 95 04/23/18 16:39 Assessment & Plan (1) Acute blood loss anemia Status: Acute (2) Cellulitis Status: Acute (3) Fever in adult Status: Acute (4) Leukocytosis Status: Acute (5) Status post revision of total replacement of left knee Assessment and Plan: plan for physical, occupational therapy for range of motion, strengthening transfers and gait training. Monitor infection and pain. Status: Acute (6) Synovitis of knee Status: Acute (7) Vitamin D deficiency Status: Acute (8) DM type 2 (diabetes mellitus, type 2) Status: Chronic
[2018-04-23] MEDS: DAPTOmycin 670 MG in Sodium Chloride 0.9% 100 ML IV SCH (22:01)
--- NOTE | 2018-04-24 08:56 | CP.PCM.PN ---
Subjective - Date & Time of Evaluation Date of Evaluation: 04/24/18 Time of Evaluation: 07:45 - Subjective Subjective: Patient seen and examined at bedside comfortable. Pain is well controlled. No new complaints. Objective - Vital Signs/Intake and Output Vital Signs (last 24 hours): Temp Pulse Resp BP Pulse Ox 97.7 F 89 20 101/75 95 04/24/18 08:22 04/24/18 08:22 04/24/18 08:22 04/24/18 08:22 04/24/18 08:22 - Medications Medications: Current Medications Acetaminophen (Tylenol 325mg Tab) 650 mg PO Q6 PRN PRN Reason: Pain, Mild (1-3) Acetaminophen (Tylenol 325mg Tab) 975 mg PO Q8 [facility] Last Admin: 04/24/18 00:43 Dose: 975 mg Bisacodyl (Dulcolax) 10 mg PO DAILY PRN PRN Reason: Constipation Cholecalciferol (Vitamin D) 2,000 intlu PO DAILY [facility] Last Admin: 04/23/18 08:40 Dose: 2,000 intlu Docusate Sodium (Colace) 100 mg PO BID [facility] Last Admin: 04/23/18 16:47 Dose: 100 mg Enoxaparin Sodium (Lovenox) 40 mg SC DAILY [facility] PRN Reason: Protocol Last Admin: 04/23/18 08:39 Dose: 40 mg Ferrous Sulfate (Feosol) 325 mg PO BID [facility] Last Admin: 04/23/18 17:41 Dose: 325 mg Folic Acid (Folic Acid) 1 mg PO DAILY [facility] Last Admin: 04/23/18 08:41 Dose: 1 mg Daptomycin 670 mg/ Sodium (Chloride) 100 mls @ 100 mls/hr IV DAILY@2100 [facility] Stop: 04/26/18 21:01 Last Admin: 04/23/18 22:01 Dose: 100 mls/hr Ertapenem 1 gm/ Sodium (Chloride) 100 mls @ 100 mls/hr IVPB DAILY@1700 [facility] PRN Reason: Protocol Last Admin: 04/23/18 16:46 Dose: 100 mls/hr Metformin HCl (Glucophage) 1,000 mg PO BID [facility] Last Admin: 04/23/18 16:49 Dose: 1,000 mg Multivitamins/Minerals (Therapeutic-M Tab) 1 tab PO DAILY [facility] Last Admin: 04/23/18 08:41 Dose: 1 tab Sitagliptin Phosphate (Januvia) 100 mg PO DAILY [facility] Last Admin: 04/23/18 08:40 Dose: 100 mg - Extremities Exam Additional comments: Left knee: Knee immobilizer intact , dressings CDI, Prevena intact with no drainage, prevena removed revealing wound intact w/scant bloody drainage mid wound large diffuse effusion sensation intact SP/DP/TN motor intact EHL/FHL/TA/G pedal pulses intact comps soft NT Assessment and Plan (1) Status post revision of total replacement of left knee Assessment & Plan: POD#4 s/p L knee removal of abx spacer and L revision TKA -Dressings removed, Prevena removed -Wet to dry betadine dressings applied, to be changed daily by ortho -will monitor knee effusion, compressive dressings for now -PT/OT WBAT, continue knee imm and CPM as per order -DVT ppx -above d/w Dr. Hunter in agreement Status: Acute
[2018-04-24] MEDS: Multivitamin With Minerals Tab PO SCH (09:18)
[2018-04-24] MEDS: Enoxaparin 40 mg Syringe SC SCH (09:18)
[2018-04-24] MEDS: Cholecalciferol 1,000 INTLU TAB PO SCH (09:19)
[2018-04-24] MEDS: DAPTOmycin 670 MG in Sodium Chloride 0.9% 100 ML IV SCH (21:57)
[2018-04-25] MEDS: Enoxaparin 40 mg Syringe SC SCH (08:27)
[2018-04-25] MEDS: Cholecalciferol 1,000 INTLU TAB PO SCH (08:28)
[2018-04-25] MEDS: Multivitamin With Minerals Tab PO SCH (08:28)
--- NOTE | 2018-04-25 12:05 | CP.PCM.PN ---
Subjective - Date & Time of Evaluation Date of Evaluation: 04/25/18 Time of Evaluation: 10:30 - Subjective Subjective: Patient seen and examined at bedside comfortable. Tolerating PT well. No new complaints. Objective - Vital Signs/Intake and Output Vital Signs (last 24 hours): Temp Pulse Resp BP Pulse Ox 97.5 F L 80 20 103/67 95 04/25/18 08:32 04/25/18 08:32 04/25/18 08:32 04/24/18 20:55 04/25/18 08:32 - Medications Medications: Current Medications Acetaminophen (Tylenol 325mg Tab) 650 mg PO Q6 PRN PRN Reason: Pain, Mild (1-3) Acetaminophen (Tylenol 325mg Tab) 975 mg PO Q8 [facility] Last Admin: 04/25/18 08:26 Dose: 975 mg Bisacodyl (Dulcolax) 10 mg PO DAILY PRN PRN Reason: Constipation Cholecalciferol (Vitamin D) 2,000 intlu PO DAILY [facility] Last Admin: 04/25/18 08:28 Dose: 2,000 intlu Docusate Sodium (Colace) 100 mg PO BID [facility] Last Admin: 04/25/18 08:28 Dose: 100 mg Ferrous Sulfate (Feosol) 325 mg PO BID [facility] Last Admin: 04/24/18 17:32 Dose: 325 mg Folic Acid (Folic Acid) 1 mg PO DAILY [facility] Last Admin: 04/25/18 08:27 Dose: 1 mg Daptomycin 670 mg/ Sodium (Chloride) 100 mls @ 100 mls/hr IV DAILY@2100 [facility] Stop: 04/26/18 21:01 Last Admin: 04/24/18 21:57 Dose: 100 mls/hr Ertapenem 1 gm/ Sodium (Chloride) 100 mls @ 100 mls/hr IVPB DAILY@1700 [facility] PRN Reason: Protocol Last Admin: 04/24/18 17:39 Dose: 100 mls/hr Metformin HCl (Glucophage) 1,000 mg PO BID [facility] Last Admin: 04/25/18 08:27 Dose: 1,000 mg Multivitamins/Minerals (Therapeutic-M Tab) 1 tab PO DAILY [facility] Last Admin: 04/25/18 08:28 Dose: 1 tab Sitagliptin Phosphate (Januvia) 100 mg PO DAILY [facility] Last Admin: 04/25/18 08:27 Dose: 100 mg - Extremities Exam Additional comments: Left knee: wet to dry betadine dressings intact, wound intact w/scant bloody drainage mid wound large diffuse effusion sensation intact SP/DP/TN motor intact EHL/FHL/TA/G pedal pulses intact comps soft NT Assessment and Plan (1) Status post revision of total replacement of left knee Assessment & Plan: POD#5 s/p L knee removal of abx spacer and L revision TKA -Dressings changed -will monitor knee effusion, compressive dressings applied -PT/OT WBAT, continue knee imm and CPM as per order -DVT ppx -abx as per ID -orthopedically stable for discharge tomorrow -f/u in office 7-10 days from discharge -above d/w Dr. Hunter in agreement Status: Acute
[2018-04-25 19:40] VITALS: TEMP 98.1
[2018-04-25] MEDS: DAPTOmycin 670 MG in Sodium Chloride 0.9% 100 ML IV SCH (21:22)
[2018-04-26 06:00] LABS: HEMOGLOBIN 10.9 g/dL (12.0-18.0); MEAN CELL VOLUME 84.3 fl (80.0-94.0); MEAN CORPUSCULAR HGB CONC 33.2 g/dL (33.0-37.0); RBC 3.89 Mil/uL (4.40-5.90); RED CELL DISTRIBUTION WIDTH 16.2 % (11.5-14.5); WHITE BLOOD COUNT 4.5 K/uL (4.8-10.8)
[2018-04-26 06:46] LABS: BLOOD UREA NITROGEN 16 mg/dl (9-20); CALCIUM 9.1 mg/dL (8.4-10.2); GFR AFRICAN-AMERICAN > 60; GFR NON-AFRICAN AMERICAN > 60
--- NOTE | 2018-04-26 07:25 | CP.PCM.PN ---
Subjective - Date & Time of Evaluation Date of Evaluation: 04/26/18 Time of Evaluation: :25 - Subjective Subjective: Patient seen and examined at bedside comfortable. Pain well controlled. No new complaints. Objective - Vital Signs/Intake and Output Vital Signs (last 24 hours): Temp Pulse Resp BP Pulse Ox 98.1 F 94 H 20 97/66 L 95 04/25/18 19:40 04/25/18 19:40 04/25/18 19:40 04/25/18 19:40 04/25/18 19:40 - Medications Medications: Current Medications Acetaminophen (Tylenol 325mg Tab) 650 mg PO Q6 PRN PRN Reason: Pain, Mild (1-3) Acetaminophen (Tylenol 325mg Tab) 975 mg PO Q8 [facility] Last Admin: 04/26/18 01:19 Dose: 975 mg Bisacodyl (Dulcolax) 10 mg PO DAILY PRN PRN Reason: Constipation Cholecalciferol (Vitamin D) 2,000 intlu PO DAILY [facility] Last Admin: 04/25/18 08:28 Dose: 2,000 intlu Docusate Sodium (Colace) 100 mg PO BID [facility] Last Admin: 04/25/18 16:07 Dose: 100 mg Enoxaparin Sodium (Lovenox) 40 mg SC DAILY [facility] PRN Reason: Protocol Ferrous Sulfate (Feosol) 325 mg PO BID [facility] Last Admin: 04/25/18 16:07 Dose: 325 mg Folic Acid (Folic Acid) 1 mg PO DAILY [facility] Last Admin: 04/25/18 08:27 Dose: 1 mg Ertapenem 1 gm/ Sodium (Chloride) 100 mls @ 100 mls/hr IVPB DAILY [facility] PRN Reason: Protocol Stop: 04/26/18 17:01 Daptomycin 670 mg/ Sodium (Chloride) 100 mls @ 100 mls/hr IV DAILY@1000 [facility] Stop: 04/26/18 21:01 Metformin HCl (Glucophage) 1,000 mg PO BID [facility] Last Admin: 04/25/18 16:07 Dose: 1,000 mg Multivitamins/Minerals (Therapeutic-M Tab) 1 tab PO DAILY [facility] Last Admin: 04/25/18 08:28 Dose: 1 tab Sitagliptin Phosphate (Januvia) 100 mg PO DAILY [facility] Last Admin: 04/25/18 08:27 Dose: 100 mg - Labs Labs: 04/26/18 05:24 04/26/18 05:24 - Extremities Exam Additional comments: Left knee: wet to dry betadine dressings intact, wound intact w/ no drainage large diffuse effusion slighlty improved with compressive wrap sensation intact SP/DP/TN motor intact EHL/FHL/TA/G pedal pulses intact comps soft NT Assessment and Plan (1) Status post revision of total replacement of left knee Assessment & Plan: POD#6 s/p L knee removal of abx spacer and L revision TKA -Dressings changed to dry dressings -continue compressive dressings, reapplied -PT/OT WBAT, continue knee imm and CPM as per order -DVT ppx, ASA 81 mg BID -abx as per ID -orthopedically stable for discharge -f/u in office 7-10 days from discharge -above d/w Dr. Hunter in agreement Status: Acute
[2018-04-26 08:18] VITALS: BP 122/63; PULSE 75; O2SAT 97
[2018-04-26] MEDS ORDERED: Enoxaparin 40 mg Syringe SC SCH (09:00)
[2018-04-26] MEDS: Cholecalciferol 1,000 INTLU TAB PO SCH (09:43)
[2018-04-26] MEDS: Multivitamin With Minerals Tab PO SCH (09:43)
[2018-04-26] MEDS ORDERED: DAPTOmycin 670 MG in Sodium Chloride 0.9% 100 ML IV SCH (10:00)
--- NOTE | 2018-04-26 11:11 | CP.PCM.DIS ---
Provider - Provider Date of Admission: 04/21/18 16:23 Attending physician: Lola Johnson DO Consults: Dr Dale Phillips Time Spent in preparation of Discharge (in minutes): 25 Diagnosis - Discharge Diagnosis (1) Status post revision of total replacement of left knee Status: Acute Comment: for discharge today and will follow with Dr Griffith on May 05. continue IV Ertapenem and Daptomycin. continue outpatient PT (2) DM type 2 (diabetes mellitus, type 2) Status: Chronic Comment: continue Metformin and [facility] Course - Lab Results Lab Results: Most Recent Lab Values WBC 4.5 K/uL (4.8-10.8) L 04/26/18 05:24 RBC 3.89 Mil/uL (4.40-5.90) L 04/26/18 05:24 Hgb 10.9 g/dL (12.0-18.0) L 04/26/18 05:24 Hct 32.8 % (35.0-51.0) L 04/26/18 05:24 MCV 84.3 fl (80.0-94.0) 04/26/18 05:24 MCH 28.0 pg (27.0-31.0) 04/26/18 05:24 MCHC 33.2 g/dL (33.0-37.0) 04/26/18 05:24 RDW 16.2 % (11.5-14.5) H 04/26/18 05:24 Plt Count 170 K/uL (130-400) 04/26/18 05:24 Sodium 139 mmol/l (132-148) 04/26/18 05:24 Potassium 4.2 MMOL/L (3.6-5.0) 04/26/18 05:24 Chloride 102 mmol/L (98-107) 04/26/18 05:24 Carbon Dioxide 25 mmol/L (22-30) 04/26/18 05:24 Anion Gap 16 (10-20) 04/26/18 05:24 BUN 16 mg/dl (9-20) 04/26/18 05:24 Creatinine 0.9 mg/dl (0.8-1.5) 04/26/18 05:24 Est GFR ( Amer) > 60 04/26/18 05:24 Est GFR (Non-Af Amer) > 60 04/26/18 05:24 POC Glucose (mg/dL) 94 mg/dL (65-110) 04/26/18 05:37 Random Glucose 106 mg/dL (75-110) 04/26/18 05:24 Calcium 9.1 mg/dL (8.4-10.2) 04/26/18 05:24 Total Creatine Kinase 39 U/L (55-170) L 04/26/18 05:24 - Hospital Course Hospital Course: 62 yo male with history of DM2 and OA had Left TKR x 3 in 2016 which became septic and was treated with Vanco and Daptomycin. Came back and had revison of TKR and removal of antibiotic spacer on 04/19/18. Patient was put back on Daptomycin and Ertapenem. Post op he was transferred to TCU for PT/OT and continuation of IV antibiotics. He did well with PT/OT but needed continuation of IV antibiotics at home. Discharge Exam - Head Exam Head Exam: ATRAUMATIC, NORMAL INSPECTION, NORMOCEPHALIC - Eye Exam Eye Exam: absent: Scleral icterus - ENT Exam ENT Exam: Mucous Membranes Moist - Respiratory Exam Respiratory Exam: absent: Rales, Rhonchi, Wheezes, Respiratory Distress - Cardiovascular Exam Cardiovascular Exam: REGULAR RHYTHM, +S1, +S2 - GI/Abdominal Exam GI & Abdominal Exam: Soft. absent: Tenderness - Rectal Exam Rectal Exam: Deferred - Back Exam Back exam: NORMAL INSPECTION - Neurological Exam Neurological exam: Alert, Oriented x3 - Psychiatric Exam Psychiatric exam: Normal Affect - Skin Skin Exam: Dry, Intact Discharge Plan - Follow Up Plan Condition: GOOD Disposition: HOME/ ROUTINE
== END 2018-04-26 14:05 | disposition home health service (06) | DRG 561 ==
LOC: H.TCU 16:23
PROVIDERS: ADMIT Student in an Organized Health Care Education/Training Program; ATTEND Student in an Organized Health Care Education/Training Program
PROC: F07Z9FZ Gait Training/Functional Ambulation Treatment using Assistive, Adaptive, Supportive or Protective Equipment (ICD-10-PCS; principal; 2018-04-21)
PROC: F08Z4FZ Home Management Treatment using Assistive, Adaptive, Supportive or Protective Equipment (ICD-10-PCS; 2018-04-21)
PROC: F07L6FZ Therapeutic Exercise Treatment of Musculoskeletal System - Lower Back / Lower Extremity using Assistive, Adaptive, Supportive or Protective Equipment (ICD-10-PCS; 2018-04-21)
DX: Z47.33 Aftercare following explantation of knee joint prosthesis (principal); E11.9 Type 2 diabetes mellitus without complications; F10.21 Alcohol dependence, in remission; E55.9 Vitamin D deficiency, unspecified; Z96.652 Presence of left artificial knee joint; M19.90 Unspecified osteoarthritis, unspecified site; Z86.19 Personal history of other infectious and parasitic diseases; Z79.84 Long term (current) use of oral hypoglycemic drugs; Z87.891 Personal history of nicotine dependence; Z88.6 Allergy status to analgesic agent; Z88.1 Allergy status to other antibiotic agents

== ENCOUNTER 2018-06-21 06:27 | Day surgery (SDC) | payer BC ==
[2018-06-21 06:43] VITALS: BMI 31.8
[2018-06-21 07:09] LABS: BASO % 0.4 % (0.0-2.0); EOS # 0.1 K/uL (0.0-0.7); EOS % 2.1 % (0.0-4.0); HEMOGLOBIN 12.5 g/dL (12.0-18.0); INR 1.1; LYMPH # 1.6 K/uL (1.0-4.3); LYMPH % 25.6 % (20.0-40.0); MEAN CELL VOLUME 84.4 fl (80.0-94.0); MEAN CORPUSCULAR HEMOGLOBIN 28.3 pg (27.0-31.0); MEAN CORPUSCULAR HGB CONC 33.5 g/dL (33.0-37.0); MEAN PLATELET VOLUME 7.4 fl (7.2-11.7); MONO # 0.5 K/uL (0.0-0.8); MONO % 8.3 % (0.0-10.0); NEUT # 3.9 K/uL (1.8-7.0); NEUT % 63.6 % (50.0-75.0); PROTHROMBIN TIME 12.6 Seconds (9.8-13.1); RBC 4.43 Mil/uL (4.40-5.90); RED CELL DISTRIBUTION WIDTH 16.3 % (11.5-14.5); WHITE BLOOD COUNT 6.1 K/uL (4.8-10.8)
[2018-06-21 07:11] LABS: PARTIAL THROMBOPLASTIN TIME 32.2 Seconds (25.6-37.1)
[2018-06-21 07:28] VITALS: RESP 18
[2018-06-21 07:35] LABS: ALB/GLOB RATIO 1.1 (1.0-2.1); ALBUMIN 4.2 g/dL (3.5-5.0); ALT/SGPT 43 U/L (21-72); AST/SGOT 35 U/L (17-59); BLOOD UREA NITROGEN 14 mg/dl (9-20); CALCIUM 9.4 mg/dL (8.4-10.2); GFR NON-AFRICAN AMERICAN > 60
--- NOTE | 2018-06-21 08:38 | CP.PCM.CON ---
History of Present Illness - History of Present Illness History of Present Illness: Orthopedic consultation: Dr. Hunter Patient is a 62 y/o male with PMH of NIDDM presents for L knee I&D possible poly exchange and antibiotic bead implantation. The patient has had complaints of consistent inferior wound drainage for the past few weeks following his trip to [facility]. A L revision TKA with antibiotic bead replacement was then performed on 04/19/18. He was placed on IV antibiotics infused through LUE PICC managed by ID. The patient has history of L TKA in 2016 and revision L TKA on for persistent pain. A removal of hardware and placement of antibiotic spacer on 02/06/18 after operative cultures resulted positive for infection. On 04/10/18, a sterile aspiration of the knee was performed in the OR and cultures were resulted negative for infection. Currently he has no complaints of pain. He denies CP/SOB/N/V/D/fever/dysuria/melena. Review of Systems - Review of Systems All systems: reviewed and no additional remarkable complaints except Review of Systems: as per HPI Past Patient History - Infectious Disease Hx of Infectious Diseases: None - Tetanus Immunizations Tetanus Immunization: Unknown - Past Medical History & Family History Past Medical History?: Yes Past Family History: Reviewed and not pertinent - Past Social History Smoking Status: Former Smoker Alcohol: None Drugs: Denies - CARDIAC Hx Cardiac Disorders: No - PULMONARY Hx Respiratory Disorders: No - NEUROLOGICAL Hx Neurological Disorder: No - HEENT Hx HEENT Problems: No - RENAL Hx Chronic Kidney Disease: No - ENDOCRINE/METABOLIC Hx Endocrine Disorders: Yes (DM) Hx Diabetes Mellitus Type 2: Yes - HEMATOLOGICAL/ONCOLOGICAL Hx Blood Disorders: Yes Hx Blood Transfusions: Yes Hx Blood Transfusion Reaction: No - INTEGUMENTARY Hx Dermatological Problems: No - MUSCULOSKELETAL/RHEUMATOLOGICAL Hx Musculoskeletal Disorders: Yes Hx Arthritis: Yes Hx Falls: No - GASTROINTESTINAL Hx Gastrointestinal Disorders: No - GENITOURINARY/GYNECOLOGICAL Hx Genitourinary Disorders: No - PSYCHIATRIC Hx Emotional Abuse: No Hx Physical Abuse: No - SURGICAL HISTORY Hx Surgeries: Yes Hx Herniorrhaphy: Yes (bilateral inguinal (3 surgeries)) Hx Joint Replacement: Yes (left knee) Hx Orthopedic Surgery: Yes (left knee replacement, L revision TKA 11/21/17, L knee antibiotic spacer) Other/Comment: Hx varicose veins sx. Hx skin graft on right index finger picc-line, revision of left knee. s/p left knee revision 04/19/18 - ANESTHESIA Hx Anesthesia: Yes Hx Anesthesia Reactions: No Hx Malignant Hyperthermia: No Has any member of the family had a problem w/ anesthesia?: No Meds Allergies/Adverse Reactions: Allergies Allergy/AdvReac Type Severity Reaction Status Date / Time aspirin Allergy RASH Verified 06/21/18 07:41 vancomycin AdvReac FEVER Verified 06/21/18 07:41 - Medications Medications: as per med rec Physical Exam - Constitutional Appears: Well, No Acute Distress - Head Exam Head Exam: ATRAUMATIC, NORMOCEPHALIC - Eye Exam Eye Exam: EOMI, Normal appearance, PERRL - ENT Exam ENT Exam: Mucous Membranes Moist - Respiratory Exam Respiratory Exam: Clear to Auscultation Bilateral, NORMAL BREATHING PATTERN - Cardiovascular Exam Cardiovascular Exam: +S1, +S2 - Extremities Exam Additional comments: Left knee: sensation intact SP/DP/TN motor intact EHL/FHL/TA/G pedal pulses intact comps soft NT - Neurological Exam Neurological exam: Alert, Oriented x3 - Psychiatric Exam Psychiatric exam: Normal Affect, Normal Mood - Skin Skin Exam: Normal Color, Warm Results - Vital Signs Recent Vital Signs: Last Vital Signs Temp 98.4 F 06/21/18 07:26 Pulse 81 06/21/18 07:32 Resp 18 06/21/18 07:26 BP 115/75 06/21/18 07:26 Pulse Ox 95 06/21/18 07:26 - Labs Result Diagrams: 06/21/18 06:50 06/21/18 06:50 Labs: Laboratory Results - last 24 hr 06/21/18 06/21/18 06/21/18 06:50 06:50 06:50 WBC 6.1 RBC 4.43 Hgb 12.5 Hct 37.4 MCV 84.4 MCH 28.3 MCHC 33.5 RDW 16.3 H Plt Count 215 MPV 7.4 Neut % (Auto) 63.6 Lymph % (Auto) 25.6 [place] % (Auto) 8.3 Eos % (Auto) 2.1 Baso % (Auto) 0.4 Neut # (Auto) 3.9 Lymph # (Auto) 1.6 [place] # (Auto) 0.5 Eos # (Auto) 0.1 Baso # (Auto) 0.0 PT 12.6 INR 1.1 APTT 32.2 Sodium 142 Potassium 4.4 Chloride 107 Carbon Dioxide 25 Anion Gap 14 BUN 14 Creatinine 0.9 Est GFR ( Amer) > 60 Est GFR (Non-Af Amer) > 60 POC Glucose (mg/dL) Random Glucose 140 H Calcium 9.4 Total Bilirubin 0.5 AST 35 ALT 43 Alkaline Phosphatase 39 Total Protein 7.8 Albumin 4.2 Globulin 3.7 Albumin/Globulin Ratio 1.1 Crossmatch BBK History Checked 06/21/18 06/21/18 06:50 07:22 WBC RBC Hgb Hct MCV MCH MCHC RDW Plt Count MPV Neut % (Auto) Lymph % (Auto) [place] % (Auto) Eos % (Auto) Baso % (Auto) Neut # (Auto) Lymph # (Auto) [place] # (Auto) Eos # (Auto) Baso # (Auto) PT INR APTT Sodium Potassium Chloride Carbon Dioxide Anion Gap BUN Creatinine Est GFR ( Amer) Est GFR (Non-Af Amer) POC Glucose (mg/dL) 134 H Random Glucose Calcium Total Bilirubin AST ALT Alkaline Phosphatase Total Protein Albumin Globulin Albumin/Globulin Ratio Crossmatch See Detail BBK History Checked Patient has bt Assessment & Plan (1) Wound drainage Assessment and Plan: -OR today for L knee I&D possible poly exchange, antibiotic bead implantation -Risks/benefits/alternatives were explained to the patient who understands and agrees to proceed with above procedure -Medical/cardiac clearance in chart -NPO -Admit to hospitalist -above d/w Dr. Hunter in agreement Status: Acute
[2018-06-21 12:04] LABS: SQUAMOUS EPITHIAL < 1 /hpf (0-5); URINE BILIRUBIN NEGATIVE (NEGATIVE); URINE BLOOD NEGATIVE (NEGATIVE); URINE CLARITY CLEAR (Clear); URINE COLOR YELLOW (YELLOW); URINE GLUCOSE (UA) NEG (Normal); URINE LEUKOCYTE ESTERASE NEG Leu/uL (Negative); URINE PROTEIN NEGATIVE (NEGATIVE); URINE UROBILINOGEN 0.2-1.0 mg/dL (0.2-1.0)
[2018-06-21] MEDS ORDERED: Thrombin Topical 5,000 Int Units Spray Kit ONE (12:25)
[2018-06-21] MEDS ORDERED: Gentamicin 80 mg/2mL Inj. ONE (12:25)
[2018-06-21] MEDS ORDERED: Absorbable Gelatin Sponge Size 12-7 ONE (12:25)
[2018-06-21] MEDS ORDERED: Bacitracin Ointment 30 GM TUBE ONE (12:26)
--- NOTE | 2018-06-21 12:58 | CP.PCM.HP ---
<Luana Hassan - Last Filed: 06/21/18 13:45> History of Present Illness - History of Present Illness History of Present Illness: 62 y/o male with PMH of NIDDM on Metformin admitted to [facility] for L knee I&D and possible hardware exchange. The patient has had complaints of consistent inferior wound drainage for the past few weeks. Patient has h/o multiple L Knee revision, last TKA with antibiotic bead replacement was then performed on . He was placed on IV antibiotics infused through LUE PICC managed by ID. A removal of hardware and placement of antibiotic spacer on 02/06/18 after operative cultures resulted positive for infection. Today he denies knee pain and also denies fever, chest pain, shortness of breath, chills, nausea, vomiting , diarrhea, headache. No urinary symptoms. PMHx: DM, arthritis. PSH: left TKR, hernia repairs x 3 (2 inguinal hernias), varicose veins bilaterally, skin graft R index finger, s/p revision of left knee 10/20 and 11/20 MEDS: reviewed ALL: Aspirin- rash, swells, Vanco possible red man syndrome not true allergy FH: denies SH: former smoker (quit 6.5 years ago), has 60 pack year history, denies drinking or illicit drug use, lives at home with stairs. Used to drink heavy before - now part of AA Present on Admission - Present on Admission Any Indicators Present on Admission: No Review of Systems - Review of Systems All systems: reviewed and no additional remarkable complaints except (HPI) Past Patient History - Infectious Disease Hx of Infectious Diseases: None - Tetanus Immunizations Tetanus Immunization: Unknown - Past Medical History & Family History Past Medical History?: Yes Past Family History: Reviewed and not pertinent - Past Social History Smoking Status: Former Smoker Alcohol: None Drugs: Denies - CARDIAC Hx Cardiac Disorders: No - PULMONARY Hx Respiratory Disorders: No - NEUROLOGICAL Hx Neurological Disorder: No - HEENT Hx HEENT Problems: No - RENAL Hx Chronic Kidney Disease: No - ENDOCRINE/METABOLIC Hx Endocrine Disorders: Yes (DM) Hx Diabetes Mellitus Type 2: Yes - HEMATOLOGICAL/ONCOLOGICAL Hx Blood Disorders: Yes Hx Blood Transfusions: Yes Hx Blood Transfusion Reaction: No - INTEGUMENTARY Hx Dermatological Problems: No - MUSCULOSKELETAL/RHEUMATOLOGICAL Hx Musculoskeletal Disorders: Yes Hx Arthritis: Yes Hx Falls: No - GASTROINTESTINAL Hx Gastrointestinal Disorders: No - GENITOURINARY/GYNECOLOGICAL Hx Genitourinary Disorders: No - PSYCHIATRIC Hx Emotional Abuse: No Hx Physical Abuse: No - SURGICAL HISTORY Hx Surgeries: Yes Hx Herniorrhaphy: Yes (bilateral inguinal (3 surgeries)) Hx Joint Replacement: Yes (left knee) Hx Orthopedic Surgery: Yes (left knee replacement, L revision TKA 11/21/17, L knee antibiotic spacer) Other/Comment: Hx varicose veins sx. Hx skin graft on right index finger picc-line, revision of left knee. s/p left knee revision 04/19/18 - ANESTHESIA Hx Anesthesia: Yes Hx Anesthesia Reactions: No Hx Malignant Hyperthermia: No Has any member of the family had a problem w/ anesthesia?: No Meds Allergies/Adverse Reactions: Allergies Allergy/AdvReac Type Severity Reaction Status Date / Time aspirin Allergy RASH Verified 06/21/18 07:41 vancomycin AdvReac FEVER Verified 06/21/18 07:41 Physical Exam - Constitutional Appears: No Acute Distress - Head Exam Head Exam: NORMAL INSPECTION - Eye Exam Eye Exam: EOMI, PERRL - ENT Exam ENT Exam: Mucous Membranes Moist - Respiratory Exam Respiratory Exam: Clear to Auscultation Bilateral. absent: Rhonchi, Wheezes - Cardiovascular Exam Cardiovascular Exam: REGULAR RHYTHM. absent: Tachycardia, Systolic Murmur - GI/Abdominal Exam GI & Abdominal Exam: Normal Bowel Sounds, Soft. absent: Distended, Tenderness - Extremities Exam Extremities exam: Negative for: calf tenderness Additional comments: L leg cast noted. - Neurological Exam Neurological exam: Alert, CN II-XII Intact, Oriented x3 - Psychiatric Exam Psychiatric exam: Normal Mood - Skin Skin Exam: Dry, Warm Results - Vital Signs Recent Vital Signs: Last Vital Signs Temp 98.4 F 06/21/18 07:26 Pulse 81 06/21/18 07:32 Resp 18 06/21/18 07:26 BP 115/75 06/21/18 07:26 Pulse Ox 95 06/21/18 07:26 - Labs Result Diagrams: 06/21/18 06:50 06/21/18 06:50 Labs: Laboratory Results - last 24 hr 06/21/18 06/21/18 06/21/18 06:50 06:50 06:50 WBC 6.1 RBC 4.43 Hgb 12.5 Hct 37.4 MCV 84.4 MCH 28.3 MCHC 33.5 RDW 16.3 H Plt Count 215 MPV 7.4 Neut % (Auto) 63.6 Lymph % (Auto) 25.6 [place] % (Auto) 8.3 Eos % (Auto) 2.1 Baso % (Auto) 0.4 Neut # (Auto) 3.9 Lymph # (Auto) 1.6 [place] # (Auto) 0.5 Eos # (Auto) 0.1 Baso # (Auto) 0.0 PT 12.6 INR 1.1 APTT 32.2 Sodium 142 Potassium 4.4 Chloride 107 Carbon Dioxide 25 Anion Gap 14 BUN 14 Creatinine 0.9 Est GFR ( Amer) > 60 Est GFR (Non-Af Amer) > 60 POC Glucose (mg/dL) Random Glucose 140 H Calcium 9.4 Total Bilirubin 0.5 AST 35 ALT 43 Alkaline Phosphatase 39 Total Protein 7.8 Albumin 4.2 Globulin 3.7 Albumin/Globulin Ratio 1.1 Urine Color Urine Clarity Urine pH Ur Specific [place] Urine Protein Urine Glucose (UA) Urine Ketones Urine Blood Urine Nitrate Urine Bilirubin Urine Urobilinogen Ur Leukocyte Esterase Urine RBC (Auto) Urine Microscopic WBC Ur Squamous Epith Cells Blood Type Antibody Screen Crossmatch BBK History Checked 06/21/18 06/21/18 06/21/18 06:50 07:22 11:45 WBC RBC Hgb Hct MCV MCH MCHC RDW Plt Count MPV Neut % (Auto) Lymph % (Auto) [place] % (Auto) Eos % (Auto) Baso % (Auto) Neut # (Auto) Lymph # (Auto) [place] # (Auto) Eos # (Auto) Baso # (Auto) PT INR APTT Sodium Potassium Chloride Carbon Dioxide Anion Gap BUN Creatinine Est GFR ( Amer) Est GFR (Non-Af Amer) POC Glucose (mg/dL) 134 H Random Glucose Calcium Total Bilirubin AST ALT Alkaline Phosphatase Total Protein Albumin Globulin Albumin/Globulin Ratio Urine Color Yellow Urine Clarity Clear Urine pH 5.0 Ur Specific [place] 1.019 Urine Protein Negative Urine Glucose (UA) Neg Urine Ketones Negative Urine Blood Negative Urine Nitrate Negative Urine Bilirubin Negative Urine Urobilinogen 0.2-1.0 Ur Leukocyte Esterase Neg Urine RBC (Auto) < 1 Urine Microscopic WBC < 1 Ur Squamous Epith Cells < 1 Blood Type A POSITIVE Antibody Screen Negative Crossmatch See Detail BBK History Checked Patient has bt Assessment & Plan - Assessment and Plan (Free Text) Assessment: 62 years old male with Hx of DM-2, Left TKR in 2016, treated for septic knee left TKR in the past here for planned OR today with Dr. Hunter for I&D. Plan: Status post LKR and revision with hx wound infection - admit patient - NPO since midnight - labs reviewed all wnl - for OR today - Surgical care as per Dr. Hunter DM-2 - controlled - monitor accuchecks post op - hold metformin for now - insulin coverage - hypoglycemia protocol DVT prophylaxis: - Hold today due to surgery <Raymond Nguyễn - Last Filed: 06/21/18 16:17> Results - Vital Signs Recent Vital Signs: Last Vital Signs Temp 98.4 F 06/21/18 07:26 Pulse 81 06/21/18 07:32 Resp 18 06/21/18 07:26 BP 115/75 06/21/18 07:26 Pulse Ox 95 06/21/18 07:26 - Labs Result Diagrams: 06/21/18 06:50 06/21/18 06:50 Labs: Laboratory Results - last 24 hr 06/21/18 06/21/18 06/21/18 06:50 06:50 06:50 WBC 6.1 RBC 4.43 Hgb 12.5 Hct 37.4 MCV 84.4 MCH 28.3 MCHC 33.5 RDW 16.3 H Plt Count 215 MPV 7.4 Neut % (Auto) 63.6 Lymph % (Auto) 25.6 [place] % (Auto) 8.3 Eos % (Auto) 2.1 Baso % (Auto) 0.4 Neut # (Auto) 3.9 Lymph # (Auto) 1.6 [place] # (Auto) 0.5 Eos # (Auto) 0.1 Baso # (Auto) 0.0 PT 12.6 INR 1.1 APTT 32.2 Sodium 142 Potassium 4.4 Chloride 107 Carbon Dioxide 25 Anion Gap 14 BUN 14 Creatinine 0.9 Est GFR ( Amer) > 60 Est GFR (Non-Af Amer) > 60 POC Glucose (mg/dL) Random Glucose 140 H Hemoglobin A1c Calcium 9.4 Total Bilirubin 0.5 AST 35 ALT 43 Alkaline Phosphatase 39 Total Protein 7.8 Albumin 4.2 Globulin 3.7 Albumin/Globulin Ratio 1.1 Urine Color Urine Clarity Urine pH Ur Specific [place] Urine Protein Urine Glucose (UA) Urine Ketones Urine Blood Urine Nitrate Urine Bilirubin Urine Urobilinogen Ur Leukocyte Esterase Urine RBC (Auto) Urine Microscopic WBC Ur Squamous Epith Cells Blood Type Antibody Screen Crossmatch BBK History Checked 06/21/18 06/21/18 06/21/18 06:50 07:22 11:18 WBC RBC Hgb Hct MCV MCH MCHC RDW Plt Count MPV Neut % (Auto) Lymph % (Auto) [place] % (Auto) Eos % (Auto) Baso % (Auto) Neut # (Auto) Lymph # (Auto) [place] # (Auto) Eos # (Auto) Baso # (Auto) PT INR APTT Sodium Potassium Chloride Carbon Dioxide Anion Gap BUN Creatinine Est GFR ( Amer) Est GFR (Non-Af Amer) POC Glucose (mg/dL) 134 H Random Glucose Hemoglobin A1c 6.6 H Calcium Total Bilirubin AST ALT Alkaline Phosphatase Total Protein Albumin Globulin Albumin/Globulin Ratio Urine Color Urine Clarity Urine pH Ur Specific [place] Urine Protein Urine Glucose (UA) Urine Ketones Urine Blood Urine Nitrate Urine Bilirubin Urine Urobilinogen Ur Leukocyte Esterase Urine RBC (Auto) Urine Microscopic WBC Ur Squamous Epith Cells Blood Type A POSITIVE Antibody Screen Negative Crossmatch See Detail BBK History Checked Patient has bt 06/21/18 11:45 WBC RBC Hgb Hct MCV MCH MCHC RDW Plt Count MPV Neut % (Auto) Lymph % (Auto) [place] % (Auto) Eos % (Auto) Baso % (Auto) Neut # (Auto) Lymph # (Auto) [place] # (Auto) Eos # (Auto) Baso # (Auto) PT INR APTT Sodium Potassium Chloride Carbon Dioxide Anion Gap BUN Creatinine Est GFR ( Amer) Est GFR (Non-Af Amer) POC Glucose (mg/dL) Random Glucose Hemoglobin A1c Calcium Total Bilirubin AST ALT Alkaline Phosphatase Total Protein Albumin Globulin Albumin/Globulin Ratio Urine Color Yellow Urine Clarity Clear Urine pH 5.0 Ur Specific [place] 1.019 Urine Protein Negative Urine Glucose (UA) Neg Urine Ketones Negative Urine Blood Negative Urine Nitrate Negative Urine Bilirubin Negative Urine Urobilinogen 0.2-1.0 Ur Leukocyte Esterase Neg Urine RBC (Auto) < 1 Urine Microscopic WBC < 1 Ur Squamous Epith Cells < 1 Blood Type Antibody Screen Crossmatch BBK History Checked Attending/Attestation - Attestation I have personally seen and examined this patient.: Yes I have fully participated in the care of the patient.: Yes I have reviewed all pertinent clinical information: Yes Notes (Text): Status post LKR and revision with hx wound infection managment per Ortho DM-2 hold metformin today iss
[2018-06-21] MEDS ORDERED: Glucagon Recombinant 1 mg Inj IM PRN (13:40)
[2018-06-21] MEDS ORDERED: Dextrose 50% SYRINGE Inj (50 ml) IV PRN (13:40)
[2018-06-21] MEDS ORDERED: Sodium Chloride 0.9% 1,000 ML IV SCH ×2 (13:45→16:45)
[2018-06-21] MEDS ORDERED: Propofol 10 mg/ml Inj (20 ML) ONE (14:49)
[2018-06-21] MEDS ORDERED: Bupivacaine HCl 0.5% PF (30 ml) Inj ONE (14:55)
[2018-06-21] MEDS ORDERED: Dexamethasone 4 mg/1 ml ONE (14:58)
[2018-06-21] MEDS ORDERED: ceFAZolin IV 1 gm in Dextrose 2 GM/100 ML BAG IVPB ONE (15:03)
[2018-06-21] MEDS ORDERED: Lactated Ringer's 1,000 ML IV ONE (15:15)
[2018-06-21] MEDS ORDERED: Esmolol 100 mg/10ml Inj IV ONE (15:42)
[2018-06-21 16:34] LABS: FLUID TYPE SYNOVIAL FLUID
[2018-06-21 16:37] LABS: SF GROSS APPEARANCE BLOODY (CLEAR); SYNOVIAL FLUID COMMENT BLOODY
[2018-06-21] MEDS ORDERED: Oxycodone/Acetaminophen 5/325 mg Tab PO PRN (16:56)
--- NOTE | 2018-06-21 16:57 | RAD ---
Date of service: 06/21/2018 PROCEDURE: Left Knee Radiographs. HISTORY: Pain. COMPARISON: 04/19/2018 FINDINGS: BONES: There is no acute displaced fracture or bone destruction. Bone alignment is normal. There is periarticular bone demineralization. JOINTS: Status post total cemented knee arthroplasty. No evidence for hardware complications. JOINT EFFUSION: Moderate suprapatellar joint effusion. OTHER FINDINGS: Severe prepatellar soft tissue swelling. IMPRESSION: No acute displaced fracture or dislocation. Status post total cemented knee arthroplasty, no evidence for hardware complications. Moderate suprapatellar joint effusion and severe prepatellar soft tissue swelling.
[2018-06-21] MEDS ORDERED: Insulin Regular 100 units/ml SC SCH (17:00)
[2018-06-21] MEDS ORDERED: ceFAZolin IV 2 gm in Dextrose 2 GM/50 ML BAG IVPB SCH (17:00)
[2018-06-21 17:10] LABS: SYNOVIAL FLUID MONO/MACROPHAGE 13 % (0-0)
[2018-06-21] MEDS ORDERED: Lactated Ringer's 1,000 ML IV SCH (17:45)
--- NOTE | 2018-06-21 18:02 | PCM.SURG1 ---
Surgeon's Initial Post Op Note - Surgeon's Notes Surgeon: Dale Toe Puller: ELDON Colon Type of Anesthesia: General Endo, Spinal, Block Regional Anesthesia Administered By: DR Emmanuel Mccrary Pre-Operative Diagnosis: nonpurulent drainage L knee. s/p successful revision TKR Operative Findings: hemarthrosis. no evidence for deep sepsis. wound dehiscience 1 cm distally Post-Operative Diagnosis: as above Operation Performed: application Provena wound vac. incision /draiange L knee. irrigation/debridement. Manipulation L knee under anaesthesia. positionin f of fluor/interpetataion of video images Specimen/Specimens Removed: skin/subcutaneous tissue Estimated Blood Loss: EBL {In ML}: 5 Blood Products Given: N/A Drains Used: Wound Vac Post-Op Condition: Good Date of Surgery/Procedure: 06/21/18 Time of Surgery/Procedure: 16:20 (time in room 15:15- [email or web address] indcution time 15:15)
[2018-06-21 19:45] VITALS: BP 110/70; PULSE 79; TEMP 98; O2SAT 97
--- NOTE | 2018-06-21 20:26 | PCM.ANESB3 ---
Femoral Nerve Block - Femoral Nerve Block Date of Procedure: 06/21/18 Anesthesiologist: Mandie Johnson Pre-Procedure Diagnosis: I and D of Left knee Procedure Performed: Femoral Nerve Block Left - Procedure Femoral Nerve Block: The procedure was explained to the patient that it is for the post-operative pain management. Consent was obtained after a thorough discussion with the patient regarding the benefits and possible complications of local anesthetic block of the femoral nerve at the inguinal crease area. The patient was brought to the operating room and standard monitors were applied. Time-out was held with the circulating nurse to confirm the correct surgery and the appropriate block. After applying oxygen by nasal cannula and administering IV Sedation, patient was placed in supine position with fully extended lower extremities and the _left groin exposed. The femoral artery was then carefully palpated. The ultrasound transducer was then applied to this area in the transverse plane and the femoral nerve was visualized lateral to the femoral artery and underneath the fascia iliaca. After thorough identification, the inguinal crease area was prepped with Betadine solution three times and 1 % Lidocaine was injected subcutaneously for topical anesthesia. At this point, a #22 gauge Stimuplex 2-inch needle was inserted immediately lateral to the femoral artery pulse at the inguinal crease and advanced perpendicularly. The needle was inserted to the ultrasound transducer in-plane towards the femoral nerve in a [id number] direction. Needle advancement was performed carefully under direct ultrasound visualization. Nerve stimulator was used and twitch of the quadriceps muscle was obtained at current of __0.3___ MA. After negative aspiration, __5___cc of __0.5___% ___bupiv was injected and this was followed with _25 cc of __0.5 % __bupiv____ . Under ultrasound guidance the local anesthetics were observed spreading below fascia iliaca and around the femoral nerve. The needle was removed intact and sterile dressing was applied. The patient had stable vital signs, was conscious and in no apparent distress. The patient tolerated the femoral nerve block well with stable vital signs and was prepared for subsequent surgery.
[2018-06-22] MEDS ORDERED: Multivitamin With Minerals Tab PO SCH (09:00)
[2018-06-22] MEDS ORDERED: Enoxaparin 40 mg Syringe SC SCH (09:00)
--- NOTE | 2018-06-22 11:02 | RAD ---
Date of service: 06/21/2018 PROCEDURE: Left Knee Radiographs. HISTORY: Pain. COMPARISON: 06/21/2018 at 11:57 a.m. FINDINGS: BONES: Status post left knee arthroplasty. No osseous fracture. Prosthesis radiographically intact. Expected postoperative soft tissue changes noted anteriorly. JOINTS: Normal. No osteoarthritis. JOINT EFFUSION: None. OTHER FINDINGS: None. IMPRESSION: Total knee replacement.
--- NOTE | 2018-06-22 13:03 | RAD ---
Date of service: 06/21/2018 PROCEDURE: Intraoperative Fluoroscopy. HISTORY: FLUOROSCOPY FINDINGS: Fluoroscopic assistance was provided for TKA. Please refer to the operative report from SAMUEL Le.
--- NOTE | 2018-06-22 19:11 | OP ---
PROCEDURE DATE: 06/21/2018 LOCATION: [facility]. PREOPERATIVE DIAGNOSIS: Nonpurulent drainage status post successful left total knee replacement arthroplasty (revision). POSTOPERATIVE DIAGNOSIS: Nonpurulent drainage status post successful left total knee replacement arthroplasty (revision), with no evidence of deep sepsis. OPERATIVE PROCEDURES: 1. Application of wound vacuum-assisted closure. 2. Irrigation and debridement, incision and drainage of left knee wound. 3. Manipulation of the left knee under anesthesia. 4. Positioning of fluoroscope and interpretation of video images. SURGEON: Tyree Hunter MD CANCER RESEARCHER: Beatrice Newman, certified registered nursing perioperative assistant. ANESTHESIA: General endotracheal anesthesia. COMPLICATIONS: No complications. DRAINS: Application of wound VAC. BLOOD PRODUCTS: No blood products. OPERATIVE INDICATION: German Mcclendon is a gentleman well known to my practice, 62 years old, who underwent successful revision total knee replacement for sepsis. The patient underwent successful revision, but unfortunately against medical advice took a trip to [facility], was walking on his feet, and had developed a drainage with some hemarthrosis. This having been accomplished, the drainage persisted. There was no evidence of deep sepsis clinically. The patient was able to have free flexion/extension without any evidence of deep sepsis. The patient was treated conservatively with dressing changes, drainage continued nonpurulent. Betadine, wet-to-dry dressing changes and IV antibiotics continued. At this point in time, after discussing with the patient, the wound VAC will be applied after the wound is incised, drained, and primarily closed. Pros, cons, risks and benefits were discussed, although it does not appear that there was a deep knee infection. Possibility that later removal of components were discussed for the sake of completeness for the sake of informed consent, the patient wished the surgery to be accomplished at this point in time. Pros, cons, risks and benefits were discussed including stiffness. OPERATIVE PROCEDURE: After having obtained informed consent in the above fashion, after the satisfactory induction of general endotracheal anesthesia by Dr. Helms, after having identified the side, site and procedure and a critical pause/time-out, the patient identified as German Mcclendon in the supine position with all bony prominences well padded. The left lower extremity was prepped and free draped in usual fashion for lower extremity surgery. The tourniquet had been applied, not yet inflated, in fact the tourniquet was not inflated because of the possibility of septic nature of the condition. The incision was noted. There was found to be evidence of drainage. Prior to any manipulation of the wound over the knee from a superolateral portal, the knee was aspirated and approximately 20 mL of hemarthrosis expressed again still from the initial excursion this patient had to [facility]. This having been accomplished, the fluid was sent down for stat Gram stain for number of white cells per high-power field, aerobic, anaerobic, AFB and fungal cultures. This having been accomplished, the wound was incised and drained. An incision was accomplished approximately 3 cm in extent. The skin edges were excised, skin and subcutaneous tissue. At this point in time, approximately 6 to 8 liters of antibiotic impregnated saline are used to irrigate the wound. The wound was then closed with interrupted Vicryl and nylon. At this point in time, the 13 cm Prevena wound VAC was employed. The initial wound VAC material was placed over the wound. A 25 to 50 cm piece area of the Prevena wound VAC was cut out and the wound VAC was sealed and placed on that region. This having been accomplished, [place] compression dressing and knee immobilizer was applied. It should be noted that prior to the application of wound VAC, the knee had been manipulated under the surgeon's direction, the fluoroscope was positioned, video images were generated, therapeutic decisions were made therefrom. The wound VAC had been employed, position was found to be excellent. The range of motion was found to be acceptable. Primary closure was watertight with interrupted Vicryl and nylon. [place] compression dressing, knee immobilizer was applied over the Prevena wound VAC. OPERATIVE PROCEDURE: 1. Application of wound vacuum-assisted closure, left knee wound. 2. Incision and drainage of left knee wound, primary closure, irrigation, debridement. 3. Manipulation of the knee under anesthesia. 4. Positioning of fluoroscope and interpretation of video images. 5. Application of [place] compression dressing and knee immobilizer. Tyree Hunter MD
== END 2018-06-21 19:45 | disposition home or self-care (01) ==
LOC: H.OPSURG 06:27
PROVIDERS: ATTEND Orthopaedic Surgery
DX: T84.54XA Infection and inflammatory reaction due to internal left knee prosthesis, initial encounter (principal); M19.90 Unspecified osteoarthritis, unspecified site; E11.9 Type 2 diabetes mellitus without complications; E66.9 Obesity, unspecified
CPT/HCPCS: 27310; 36415; 73560; 76000; 80053; 81003; 82948; 83036; 85025; 85610; 85730; 86850; 86900; 86920; 87015; 87070; 87075; 87101; 87116; 87206; 88304; 89051; J0690; J1100; J2001; J2405; J2704; J2765; J7030; J7120; L1830